=== PATIENT | male | born 1935 | race Caucasian/White ===

== ENCOUNTER 2017-06-10 10:24 | Observation (INO) | payer MEDICARE, OTHER ==
[~2017-06-10] VITALS: Ht 167.6 cm; Wt 80.0 kg
[~2017-06-10 10:24] MED LIST: ALLO300T2 PO; CLOP75TA27 PO; DABI150C PO; FLUT16SP17 NASAL; FURO40TA4 PO; LORA10TA3 PO; METO-335 PO; TRAM-40 PO; TRAV2.5D BOTH EYES
[2017-06-10 11:07] LABS: BASOPHILS % 0.4 % (0.0-2.0); EOSINOPHILS # 0.1 10^3/ul (0.0-0.5); EOSINOPHILS % 0.5 % (0.0-7.0); HEMATOCRIT 35.9 % (42.0-52.0); HEMOGLOBIN 12.3 g/dl (14.0-18.0); LYMPHOCYTES # 1.1 10^3/ul (0.8-2.9); LYMPHOCYTES % 9.8 % (15.0-51.0); MEAN CORPUSCULAR HEMOGLOBIN 33.4 pg (29.0-33.0); MEAN CORPUSCULAR HGB CONC 34.3 g/dl (32.0-37.0); MEAN CORPUSCULAR VOLUME 97.6 fl (82.0-101.0); MONOCYTES % 8.8 % (0.0-11.0); NEUTROPHIL # 8.8 10^3/ul (1.6-7.5); PLATELET COUNT 128 10^3/UL (140-415); POSITIVE DIFF @See below; RED BLOOD COUNT 3.68 10^6/ul (4.70-6.10); RED CELL DISTRIBUTION WIDTH 14.3 % (11.5-14.5)
[2017-06-10 11:43] LABS: CALCIUM 8.7 mg/dl (8.4-10.2); CREATININE 0.83 mg/dl (0.61-1.24); POTASSIUM 4.6 mmol/L (3.5-5.1)
[2017-06-10 11:53] VITALS: TEMP 98.5
[2017-06-10 11:53] LABS: TROPONIN-I 0.021 ng/ml (0.00-0.12)
--- NOTE | 2017-06-10 11:53 | RADRPT ---
PROCEDURE: CT Brain without contrast. CLINICAL INDICATION: Pain, headache, syncope TECHNIQUE: Routine CT scan of the brain was performed on a high resolution multi detector scanner without intravenous contrast. One or more of the following dose reduction techniques were used: Auto mated exposure control; Adjustment of the mA and/or kV according to patient size; Use of iterative r econstruction technique. CTDI = 43 mGy. DLP = 720 mGy-cm. COMPARISON: CT brain 08/12/2016 FINDINGS: Hemorrhage: No evidence of intracranial hemorrhage. Acute ischemic changes: No evidence of acute ischemic changes. Mass effect: None. Parenchymal volume: Mild central parenchymal volume loss is evident. Ventricular system: Concordant with parenchymal volume. Chronic changes: There are multiple areas of low attenuation change within the supratentorial white matter most compatible with moderate chronic microvascular ischemic changes. Atherosclerotic calcifications of the cavernous portions of both internal carotid arteries are prese nt. Extracranial soft tissues: Unremarkable. Calvarium: No fractures. Paranasal sinuses: Visualized paranasal sinuses are clear. Mastoid air cells: Visualized mastoid air cells are clear. IMPRESSION: No acute intracranial abnormalities. Moderate chronic-appearing microvascular ischemic changes of the supratentorial white matter, unchan ged. RPTAT: AADD .Stephan Cid MD, MD Date Time Electronically viewed and signed by .Stephan Cid MD, on 06/10/2017 11:53 .B/
[2017-06-10] MEDS ORDERED: ACETAMINOPHEN 325 MG TAB PO PRN (12:30)
[2017-06-10] MEDS ORDERED: ONDANSETRON 4 MG INJ IV PRN (12:30)
[2017-06-10] MEDS ORDERED: CARV12.579 PO (12:47)
[2017-06-10] MEDS ORDERED: LISI2.5T59 PO (12:48)
[2017-06-10] MEDS ORDERED: NACL 0.9% 3 ML SYG IV SCH (13:00)
--- NOTE | 2017-06-10 14:09 | ERA ---
ER Documentation Chief Complaint Date/Time DATE: 06/10/17 TIME: 14:07 Chief Complaint SYNCOPE WHILE BRUSHING HIS TEETH THIS AM HPI Patient is an 81-year-old male with coronary disease and hypertension who presents after he passed out. He hit his head as well. He was having headache and chest pain as well as shortness of breath. This happened at 6 AM. He was brought in by ambulance. He had a pacemaker placed recently on May 15. Upon review of old medical records this is the patient's fourth visit to the ER since 2015. ROS All systems reviewed and are negative except as per history of present illness. Medications Home Meds Reported Medications Lisinopril* (Lisinopril*) 2.5 Mg Tablet, 2.5 MG PO DAILY, #30 TAB 06/10/17 Carvedilol* (Carvedilol*) 12.5 Mg Tablet, 12.5 MG PO BID, #60 TAB 06/10/17 Furosemide* (Furosemide*) 40 Mg Tablet, 40 MG PO DAILY, TAB 08/15/16 Allopurinol* (Allopurinol*) 300 Mg Tablet, 300 MG PO DAILY, TAB 08/15/16 Metoprolol Succinate* (Toprol XL*) 25 Mg Tab.sr.24h, 25 MG PO QAM, #30 TAB 08/15/16 Discontinued Reported Medications Travoprost* (Travatan Z*) 2.5 Ml Drops, 1 DROP BOTH EYES HS, #1 BOTTLE 08/15/16 Loratadine* (Loratadine*) 10 Mg Tablet, 10 MG PO DAILY, #30 TAB 08/15/16 Clopidogrel Bisulfate (Clopidogrel) 75 Mg Tablet, 75 MG PO DAILY, #30 TAB 08/15/16 Tramadol Hcl* (Ultram*) 50 Mg Tablet, 50 MG PO BID Y for PAIN, TAB 08/15/16 Dabigatran Etexilate Mesylate* (Pradaxa*) 150 Mg Capsule, 150 MG PO BID, CAP 08/15/16 Fluticasone Propionate* (Fluticasone Propionate* Nasal) 50 Mcg/Tyler - 16 Gm Tyler.susp, 1 SPRAY NASAL BID, #1 BOTTLE TO EACH NOSTRIL 08/15/16 Allergies Allergies: Coded Allergies: No Known Allergy (Unverified , 06/10/17) PMhx/Soc History of Surgery: Yes (S/P Pacemaker placement - 2012, 05/2017) Anesthesia Reaction: No Hx Neurological Disorder: No Hx Respiratory Disorders: No Hx Cardiac Disorders: No (HTN) Hx Psychiatric Problems: No Hx Miscellaneous Medical Probl: Yes (gout, CAD, HTN) Hx Alcohol Use: Yes Hx Substance Use: No Hx Tobacco Use: No Smoking Status: Former smoker FmHx Family History: No diabetes Physical Exam Vitals Vital Signs Date Time Temp Pulse Resp B/P Pulse Ox O2 Delivery O2 Flow Rate FiO2 06/10/17 11:53 98.5 91 18 148/110 98 Room Air 06/10/17 10:28 98.3 87 18 136/76 96 Physical Exam Const: Mild distress secondary to pain Head: Atraumatic Eyes: Normal Conjunctiva ENT: Normal External Ears, Nose and Mouth. Neck: Full range of motion..~ No meningismus. Resp: Clear to auscultation bilaterally Cardio: Regular rate and rhythm, no murmurs Abd: Soft, non tender, non distended. Normal bowel sounds Skin: No petechiae or rashes Back: No midline or flank tenderness Ext: No cyanosis, or edema Neur: Awake and alert Psych: Normal Mood and Affect Result Diagram: 06/10/17 1050 06/10/17 1050 Results 24 hrs Laboratory Tests Test 06/10/17 10:50 White Blood Count 11.010^3/ul Red Blood Count 3.6810^6/ul Hemoglobin 12.3g/dl Hematocrit 35.9% Mean Corpuscular Volume 97.6fl Mean Corpuscular Hemoglobin 33.4pg Mean Corpuscular Hemoglobin Concent 34.3g/dl Red Cell Distribution Width 14.3% Platelet Count 52824^3/UL Mean Platelet Volume 11.0fl Neutrophils % 80.0% Lymphocytes % 9.8% Monocytes % 8.8% Eosinophils % 0.5% Basophils % 0.4% Nucleated Red Blood Cells % 0.0/100WBC Neutrophils # 8.810^3/ul Lymphocytes # 1.110^3/ul Monocytes # 1.010^3/ul Eosinophils # 0.110^3/ul Basophils # 0.010^3/ul Nucleated Red Blood Cells # 0.010^3/ul Sodium Level 140mmol/L Potassium Level 4.6mmol/L Chloride Level 107mmol/L Carbon Dioxide Level 27mmol/L Anion Gap 11 Blood Urea Nitrogen 16mg/dl Creatinine 0.83mg/dl Glucose Level 111mg/dl Calcium Level 8.7mg/dl Troponin I 0.021ng/ml Current Medications Medications (Trade) Dose Ordered Sig/Loraine Route PRN Reason Start Time Stop Time Status Last Admin Dose Admin Ondansetron HCl (Zofran Inj) 4 mg ER BRIDGE PRN IV NAUSEA AND/OR VOMITING 06/10/17 12:30 06/11/17 12:29 Acetaminophen (Tylenol Tab) 650 mg ER BRIDGE PRN PO MILD PAIN/FEVER 06/10/17 12:30 06/11/17 12:29 IV Flush (NS 3 ml) 3 ml PER PROTOCOL IV 06/10/17 13:00 Enoxaparin Sodium (Lovenox) 40 mg DAILY SC 06/11/17 09:00 Allopurinol (Zyloprim) 300 mg DAILY PO 06/11/17 09:00 UNV Furosemide (Lasix) 40 mg DAILY PO 06/11/17 09:00 UNV Lisinopril (Zestril) 2.5 mg DAILY PO 06/11/17 09:00 UNV Procedures/MDM EKG read by me: Rate/Rhythm: Atrial fibrillation at a regular rate Intervals: Normal Impression: Atrial fibrillation without ischemia PROCEDURE: CT Brain without contrast. CLINICAL INDICATION: Pain, headache, syncope TECHNIQUE: Routine CT scan of the brain was performed on a high resolution multi detector scanner without intravenous contrast. One or more of the following dose reduction techniques were used: Automated exposure control; Adjustment of the mA and/or kV according to patient size; Use of iterative reconstruction technique. CTDI = 43 mGy. DLP = 720 mGy-cm. COMPARISON: CT brain 08/12/2016 FINDINGS: Hemorrhage: No evidence of intracranial hemorrhage. Acute ischemic changes: No evidence of acute ischemic changes. Mass effect: None. Parenchymal volume: Mild central parenchymal volume loss is evident. Ventricular system: Concordant with parenchymal volume. Chronic changes: There are multiple areas of low attenuation change within the supratentorial white matter most compatible with moderate chronic microvascular ischemic changes. Atherosclerotic calcifications of the cavernous portions of both internal carotid arteries are present. Extracranial soft tissues: Unremarkable. Calvarium: No fractures. Paranasal sinuses: Visualized paranasal sinuses are clear. Mastoid air cells: Visualized mastoid air cells are clear. IMPRESSION: No acute intracranial abnormalities. Moderate chronic-appearing microvascular ischemic changes of the supratentorial white matter, unchanged. RPTAT: AADD .Stephan Cid MD, MD Date Time Electronically viewed and signed by .Stephan Cid MD, on 06/10/2017 11:53 Patient is an 81-year-old male with coronary disease and hypertension who presents with syncope. My concern is for possible ventricular arrhythmia. He also has chest pain and shortness of breath. He may have acute coronary syndrome. The patient will be given aspirin. He will be admitted to the care of the panel team to a telemetry bed for further workup. At this point I doubt pneumonia, pneumothorax, pulmonary embolism, or aortic dissection. Departure Diagnosis: Primary Impression: Chest pain Qualified Code: R07.9 - Chest pain, unspecified type Additional Impression: Syncope Qualified Code: R55 - Syncope, unspecified syncope type Condition: HERMELINDA Mccloud MD Jun 10, 2017 14:09
[2017-06-10] MEDS ORDERED: ASPIRIN 81 MG TAB PO ONE (14:30)
[2017-06-10 16:12] VITALS: Ht 167.6 cm; Wt 80.0 kg
[2017-06-10 16:24] VITALS: BP 158/78; RESP 20
[2017-06-10 16:31] VITALS: PULSE 104
--- NOTE | 2017-06-10 16:36 | HP ---
Date/Time of Note Date/Time of Note DATE: 06/10/17 TIME: 16:24 Assessment/Plan VTE Prophylaxis VTE Prophylaxis Intervention: SCD's Assessment/Plan Assessment/Plan 81 yo M with h/o symptomatic bradycardia? sp PM placement, htn, gout admitted following presyncopal episode in the setting of acute viral process as well as accidental excess bb use. Suspect etio of episode combination of iatrogenesis ( too many beta blockers) and orthostatic hypotension from low volume state from volume loss from diarrhea and vomiting. PLAN hold bb's cont allopurinol judicious IVFs obtain outside records tele monitoring check CXR and RVP HPI/ROS Admit Date/Time Admit Date/Time Jun 10, 2017 at 12:23 Hx of Present Illness 81 yo M with pmhx ?symptomatic bradycardia? with h/o PM placement 4 years ago, HTN, gout presents following a presyncopal episode this AM. Pt reports having cold/URI symptoms for the past week-->nasal congestion, chills, runny nose, with loose stools and vomiting since yesterday. Pt was brushing his teeth this AM when he suddenly felt "cold all over" his vision appeared to blacken and he fell to the ground. Denies any preceding chest pain or palpitations. Of note, pt is on bb for HTN. He was switched from metoprolol to carvedilol last month but was confused by the directions of his PCP so has been taking both for the past several weeks. Also of note, pt was admitted to an OSH in [place] 4 weeks ago for ?chest pain,? was told at that time that the battery in his PM was running low so it was replaced. No drainage or erythema of PM site. PMH/Family/Social Past Surgical History Past Surgical Hx: other Social History lives in the community Smoking Status: Never smoker Exam/Review of Systems Vital Signs Vitals Vital Signs Date Time Temp Pulse Resp B/P Pulse Ox O2 Delivery O2 Flow Rate FiO2 06/10/17 14:40 95 18 158/91 98 Room Air 06/10/17 11:53 98.5 Exam Exam nad wearing sunglasses +breathing through his mouth +breath sounds in all lung dunlap no mrg PM site c/d/i moves exts freely no rashes no edema labs with minimal WBC elevation. CT head with chronic microvascular changes Labs Result Diagram: 06/10/17 1050 06/10/17 1050 Medications Medications Current Medications Enoxaparin Sodium (Lovenox) 40 mg DAILY SC ; Start 06/11/17 at 09:00 Allopurinol (Zyloprim) 300 mg DAILY PO ; Start 06/11/17 at 09:00 Furosemide (Lasix) 40 mg DAILY PO ; Start 06/11/17 at 09:00 Lisinopril (Zestril) 2.5 mg DAILY PO ; Start 06/11/17 at 09:00 CELIA AYERS MD Jun 10, 2017 16:35
[2017-06-10 19:48] VITALS: BP 139/68; RESP 20
[2017-06-10 20:30] VITALS: PULSE 95
[2017-06-10] MEDS ORDERED: INFLUENZA VIRUS VACCINE 0.5 ML SYG IM* ONE (22:00)
[2017-06-10 23:59] VITALS: BP 130/72; RESP 20
[2017-06-11] VITALS (17 sets, daily range): BP systolic 125–173; BP diastolic 59–79; PULSE 72–98; RESP 18–20
[2017-06-11] MEDS: FUROSEMIDE 40 MG TAB PO SCH (08:48)
[2017-06-11] MEDS: ALLOPURINOL 300 MG TAB PO SCH (08:48)
[2017-06-11] MEDS: LISINOPRIL 5 MG TAB PO SCH (08:48)
[2017-06-11] MEDS: ENOXAPARIN 40 MG/0.4 ML SYG SC SCH (08:51)
[2017-06-11 09:23] LABS: BASOPHILS % 0.3 % (0.0-2.0); EOSINOPHILS # 0.2 10^3/ul (0.0-0.5); HEMATOCRIT 38.2 % (42.0-52.0); HEMOGLOBIN 12.7 g/dl (14.0-18.0); LYMPHOCYTES # 1.5 10^3/ul (0.8-2.9); LYMPHOCYTES % 14.9 % (15.0-51.0); MEAN CORPUSCULAR HEMOGLOBIN 32.8 pg (29.0-33.0); MEAN CORPUSCULAR HGB CONC 33.2 g/dl (32.0-37.0); MEAN CORPUSCULAR VOLUME 98.7 fl (82.0-101.0); MEAN PLATELET VOLUME 11.4 fl (7.4-10.4); MONOCYTES % 10.1 % (0.0-11.0); NEUTROPHIL # 7.4 10^3/ul (1.6-7.5); NEUTROPHILS % 72.4 % (39.0-77.0); PLATELET COUNT 134 10^3/UL (140-415); POSITIVE DIFF @See below; RED BLOOD COUNT 3.87 10^6/ul (4.70-6.10); RED CELL DISTRIBUTION WIDTH 14.6 % (11.5-14.5); WHITE BLOOD COUNT 10.2 10^3/ul (4.8-10.8)
[2017-06-11 09:51] LABS: CREATININE 0.87 mg/dl (0.61-1.24); POTASSIUM 4.2 mmol/L (3.5-5.1)
--- NOTE | 2017-06-11 16:42 | RADRPT ---
PROCEDURE: XR Chest. CLINICAL INDICATION: Shortness of breath TECHNIQUE: PA and lateral views of the chest COMPARISON: 08/15/2016 Chest x-ray FINDINGS: Marked cardiomegaly with left ventricular prominence stable compared to prior study. Left dual chamb er pacemaker / AICD. Atherosclerotic calcification of the aorta. Lingular and bibasilar linear scar ring and/or subsegmental atelectasis. No pneumothorax. The osseous structures and soft tissues are u nremarkable. IMPRESSION: 1. No evidence for active cardiopulmonary disease. 2. Stable cardiomegaly with left pacemaker / AICD. 3. Bibasilar subsegmental atelectasis or scarring. RPTAT:AAJJ Physician Jonnie Date Time Electronically viewed and signed by Physician Jonnie on 06/11/2017 16:42 STACY/
--- NOTE | 2017-06-11 17:48 | PN ---
Date/Time of Note Date/Time of Note DATE: 06/11/17 TIME: 17:46 Assessment/Plan VTE Prophylaxis VTE Prophylaxis Intervention: SCD's Lines/Catheters IV Catheter Type (from Nrsg): Saline Lock Assessment/Plan Assessment/Plan 81 yo M with h/o symptomatic bradycardia? sp PM placement, htn, gout admitted following presyncopal episode in the setting of acute viral process as well as accidental excess bb use. Suspect etio of episode combination of iatrogenesis ( too many beta blockers) and orthostatic hypotension from low volume state from volume loss from diarrhea and vomiting. PLAN hold bb's cont allopurinol obtain outside records tele monitoring check RVP consider dc in AM Subjective 24 Hr Interval Summary Free Text/Dictation Chest pain significantly improved outside results not yet available Exam/Review of Systems Vital Signs Vitals Vital Signs Date Time Temp Pulse Resp B/P Pulse Ox O2 Delivery O2 Flow Rate FiO2 06/11/17 16:32 98.0 88 19 151/69 95 06/10/17 14:40 Room Air Intake and Output 06/10/17 06/10/17 06/11/17 15:00 23:00 07:00 Intake Total 200 ml 480 ml Output Total 3 ml Balance 200 ml 477 ml Exam nad no mrg lungs clear abd soft no rashes Results Result Diagram: 06/11/17 0834 06/11/17 0834 Results 24 hrs Laboratory Tests Test 06/10/17 18:42 06/11/17 01:03 06/11/17 08:34 Troponin I 0.021 0.040 White Blood Count 10.2 Red Blood Count 3.87 L Hemoglobin 12.7 L Hematocrit 38.2 L Mean Corpuscular Volume 98.7 Mean Corpuscular Hemoglobin 32.8 Mean Corpuscular Hemoglobin Concent 33.2 Red Cell Distribution Width 14.6 H Platelet Count 134 L Mean Platelet Volume 11.4 H Neutrophils % 72.4 Lymphocytes % 14.9 L Monocytes % 10.1 Eosinophils % 2.0 Basophils % 0.3 Nucleated Red Blood Cells % 0.0 Neutrophils # 7.4 Lymphocytes # 1.5 Monocytes # 1.0 H Eosinophils # 0.2 Basophils # 0.0 Nucleated Red Blood Cells # 0.0 Sodium Level 139 Potassium Level 4.2 Chloride Level 103 Carbon Dioxide Level 29 Anion Gap 11 Blood Urea Nitrogen 17 Creatinine 0.87 Glucose Level 123 Calcium Level 9.0 Medications Medications Current Medications Enoxaparin Sodium (Lovenox) 40 mg DAILY SC Last administered on 06/11/17 08:51 ; Admin Dose 40 MG; Start 06/11/17 at 09:00 Allopurinol (Zyloprim) 300 mg DAILY PO Last administered on 06/11/17 08:48; Admin Dose 300 MG; Start 06/11/17 at 09:00 Furosemide (Lasix) 40 mg DAILY PO Last administered on 06/11/17 08:48; Admin Dose 40 MG; Start 06/11/17 at 09:00 Lisinopril (Zestril) 2.5 mg DAILY PO Last administered on 06/11/17 08:48; Admin Dose 2.5 MG; Start 06/11/17 at 09:00 CELIA AYERS MD Jun 11, 2017 17:48
[2017-06-12] VITALS (7 sets, daily range): BP systolic 116–130; BP diastolic 56–65; PULSE 75–83; RESP 18–19
[2017-06-12] MEDS ORDERED: ZOLPIDEM 5 MG TAB PO PRN
[2017-06-12] MEDS: ENOXAPARIN 40 MG/0.4 ML SYG SC SCH (09:17)
[2017-06-12] MEDS: FUROSEMIDE 40 MG TAB PO SCH (09:18)
[2017-06-12] MEDS: LISINOPRIL 5 MG TAB PO SCH (09:19)
[2017-06-12] MEDS: ALLOPURINOL 300 MG TAB PO SCH (09:19)
[2017-06-12] MEDS ORDERED: DIGO250T16 PO (12:19)
[2017-06-12] MEDS ORDERED: LEVO112T57 PO (12:19)
[2017-06-12] MEDS ORDERED: DABI150C PO (12:20)
--- NOTE | 2017-06-12 12:51 | PDOCDIS ---
Discharge Instructions CONDITION Patient Condition: Stable HOME CARE INSTRUCTIONS: Special Diet: Low Fat Low Cholesterol FOLLOW UP/APPOINTMENTS Follow-up Plan Follow up with your regular doctor, Dr Siegel this week Mita un seguimiento con carty luis manuel, Dr. Siegel esta semana [place] [address] [facility] [place] [address] phone/Telfono Follow up with your heart doctor/heating element builder within 2 weeks Mita un seguimiento con carty luis manuel musa / cardilogo dentro de 2 semanas [facility] [address] [facility] [address] [place] [address] Phone/Telfono CELIA AYERS MD Jun 12, 2017 12:51
--- NOTE | 2017-06-12 12:57 | DS ---
Date/Time of Note Date/Time of Note DATE: 06/12/17 TIME: 12:52 Discharge Summary Admission/Discharge Info Admit Date/Time Jun 10, 2017 at 12:23 Discharge Date/Time Discharge Diagnosis presyncope most likely from combined URI and excessive antihypertensive medication Patient Condition: Stable Procedures 10.3 CXR IMPRESSION: 1. No evidence for active cardiopulmonary disease. 2. Stable cardiomegaly with left pacemaker / AICD. 3. Bibasilar subsegmental atelectasis or scarring. Hematology - 72 Hrs Test 06/10/17 10:50 06/11/17 08:34 White Blood Count 11.010^3/ul (4.8-10.8) #H 10.210^3/ul (4.8-10.8) Red Blood Count 3.6810^6/ul (4.70-6.10) L 3.8710^6/ul (4.70-6.10) L Hemoglobin 12.3g/dl (14.0-18.0) L 12.7g/dl (14.0-18.0) L Hematocrit 35.9% (42.0-52.0) L 38.2% (42.0-52.0) L Mean Corpuscular Volume 97.6fl (82.0-101.0) 98.7fl (82.0-101.0) Mean Corpuscular Hemoglobin 33.4pg (29.0-33.0) H 32.8pg (29.0-33.0) Mean Corpuscular Hemoglobin Concent 34.3g/dl (32.0-37.0) 33.2g/dl (32.0-37.0) Red Cell Distribution Width 14.3% (11.5-14.5) 14.6% (11.5-14.5) H Platelet Count 10633^3/UL (140-415) L 47027^3/UL (140-415) L Mean Platelet Volume 11.0fl (7.4-10.4) #H 11.4fl (7.4-10.4) H Neutrophils % 80.0% (39.0-77.0) H 72.4% (39.0-77.0) Lymphocytes % 9.8% (15.0-51.0) L 14.9% (15.0-51.0) L Monocytes % 8.8% (0.0-11.0) 10.1% (0.0-11.0) Eosinophils % 0.5% (0.0-7.0) 2.0% (0.0-7.0) Basophils % 0.4% (0.0-2.0) 0.3% (0.0-2.0) Nucleated Red Blood Cells % 0.0/100WBC (0.0-0.0) 0.0/100WBC (0.0-0.0) Neutrophils # 8.810^3/ul (1.6-7.5) H 7.410^3/ul (1.6-7.5) Lymphocytes # 1.110^3/ul (0.8-2.9) 1.510^3/ul (0.8-2.9) Monocytes # 1.010^3/ul (0.3-0.9) H 1.010^3/ul (0.3-0.9) H Eosinophils # 0.110^3/ul (0.0-0.5) 0.210^3/ul (0.0-0.5) Basophils # 0.010^3/ul (0.0-0.1) 0.010^3/ul (0.0-0.1) Nucleated Red Blood Cells # 0.010^3/ul (0.0-0.0) 0.010^3/ul (0.0-0.0) Chemistry Test 06/10/17 10:50 06/10/17 18:42 06/11/17 01:03 06/11/17 08:34 Sodium Level 140mmol/L (135-144) 139mmol/L (135-144) Potassium Level 4.6mmol/L (3.5-5.1) 4.2mmol/L (3.5-5.1) Chloride Level 107mmol/L (97-110) 103mmol/L (97-110) Carbon Dioxide Level 27mmol/L (21-31) 29mmol/L (21-31) Anion Gap 11 (8-16) 11 (8-16) Blood Urea Nitrogen 16mg/dl (7-20) 17mg/dl (7-20) Creatinine 0.83mg/dl (0.61-1.24) 0.87mg/dl (0.61-1.24) Glucose Level 111mg/dl (70-220) 123mg/dl (70-220) Calcium Level 8.7mg/dl (8.4-10.2) 9.0mg/dl (8.4-10.2) Troponin I 0.021ng/ml (0.00-0.12) 0.021ng/ml (0.00-0.12) 0.040ng/ml (0.00-0.12) Laboratory Tests Test 06/11/17 08:34 Blood Urea Nitrogen 17mg/dl Carbon Dioxide Level 29mmol/L Chloride Level 103mmol/L Creatinine 0.87mg/dl Glucose Level 123mg/dl Hematocrit 38.2% Hemoglobin 12.7g/dl Platelet Count 62179^3/UL Potassium Level 4.2mmol/L Sodium Level 139mmol/L White Blood Count 10.210^3/ul Hx of Present Illness 81 yo M with pmhx ?symptomatic bradycardia? with h/o PM placement 4 years ago, HTN, gout presents following a presyncopal episode this AM. Pt reports having cold/URI symptoms for the past week-->nasal congestion, chills, runny nose, with loose stools and vomiting since yesterday. Pt was brushing his teeth this AM when he suddenly felt "cold all over" his vision appeared to blacken and he fell to the ground. Denies any preceding chest pain or palpitations. Of note, pt is on bb for HTN. He was switched from metoprolol to carvedilol last month but was confused by the directions of his PCP so has been taking both for the past several weeks. Also of note, pt was admitted to an OSH in [place] 4 weeks ago for ?chest pain,? was told at that time that the battery in his PM was running low so it was replaced. No drainage or erythema of PM site. Hospital Course Pt admitted for presyncope. No chest discomfort during the entirety of patient' s hospital stay. Pt's symptoms resolved shortly after admission. Metoprolol held. Pt's real estate clerk and PCP's office were contacted and home meds list updated. Per cardiology office, pt has a long hx ICM. Last TTE with EF 30% in late April, NM stress test 3.17 unremarkable. Pt's device is actually combined ICD/PM. Pt monitored on tele, found to be in SR HR<100. Pt discharged on just 1 beta bradley (coreg rx'ed from his cardiologists office ) and close outpatient f/u advised. Copy of this DC summary faxed to office of PCP and real estate clerk. Home Meds Reported Medications Dabigatran Etexilate Mesylate* (Pradaxa*) 150 Mg Capsule, 150 MG PO BID, CAP 06/12/17 Levothyroxine Sodium* (Levothyroxine Sodium*) 112 Mcg Tablet, 112 MCG PO BEFORE BREAKFAST, #30 TAB 06/12/17 Digoxin* (Digox*) 250 Mcg Tablet, 0.25 MG PO DAILY, TAB 06/12/17 Lisinopril* (Lisinopril*) 2.5 Mg Tablet, 2.5 MG PO DAILY, #30 TAB 06/10/17 Carvedilol* (Carvedilol*) 12.5 Mg Tablet, 12.5 MG PO BID, #60 TAB 06/10/17 Furosemide* (Furosemide*) 40 Mg Tablet, 40 MG PO DAILY, TAB 08/15/16 Allopurinol* (Allopurinol*) 300 Mg Tablet, 300 MG PO DAILY, TAB 08/15/16 Discontinued Reported Medications Metoprolol Succinate* (Toprol XL*) 25 Mg Tab.sr.24h, 25 MG PO QAM, #30 TAB 08/15/16 Travoprost* (Travatan Z*) 2.5 Ml Drops, 1 DROP BOTH EYES HS, #1 BOTTLE 08/15/16 Loratadine* (Loratadine*) 10 Mg Tablet, 10 MG PO DAILY, #30 TAB 08/15/16 Clopidogrel Bisulfate (Clopidogrel) 75 Mg Tablet, 75 MG PO DAILY, #30 TAB 08/15/16 Tramadol Hcl* (Ultram*) 50 Mg Tablet, 50 MG PO BID Y for PAIN, TAB 08/15/16 Dabigatran Etexilate Mesylate* (Pradaxa*) 150 Mg Capsule, 150 MG PO BID, CAP 08/15/16 Fluticasone Propionate* (Fluticasone Propionate* Nasal) 50 Mcg/[place]ath - 16 Gm Bath.susp, 1 SPRAY NASAL BID, #1 BOTTLE TO EACH NOSTRIL 08/15/16 Follow-up Plan Follow up with your regular doctor, Dr Siegel this week Mita un seguimiento con carty mdico, Dr. Siegel esta semana [facility] [address] [facility] [place] [address] phone/Telfono Follow up with your heart doctor/real estate clerk within 2 weeks Mita un seguimiento con carty mdfernanda de corazn / cardilogo dentro de 2 semanas [facility] [address] [facility] [address] [place] [address] Phone/Telfono Primary Care Provider Stephan Siegel Time spent on discharge: > 30 minutes CELIA AYERS MD Jun 12, 2017 12:57
== END 2017-06-12 16:17 | disposition home or self-care (01) ==
LOC: E/R 10:24 → MS4 12:23
PROVIDERS: ADMIT Internal Medicine; ATTEND Internal Medicine
DX: R55 Syncope and collapse (principal); R00.1 Bradycardia, unspecified; I10 Essential (primary) hypertension; I51.7 Cardiomegaly; J98.11 Atelectasis; Z95.0 Presence of cardiac pacemaker; Z23 Encounter for immunization
CPT/HCPCS: 36415; 70450; 71020; 80048; 84484; 85025; 87275; 87276; 87279; 87280; 90686; 93005; 99285; G0008; G0378; J1650; 90471

== ENCOUNTER 2017-07-11 06:36 | Inpatient (IN) | payer MEDICARE, OTHER ==
[~2017-07-11] VITALS: Ht 167.6 cm; Wt 83.4 kg
[2017-07-11] VITALS (7 sets, daily range): BP systolic 101–133; BP diastolic 55–63; PULSE 75–76; RESP 17–20; TEMP 97.8; Ht 167.6 cm; Wt 83.4 kg
[~2017-07-11 06:36] MED LIST changes: +CARV12.579 PO; -CLOP75TA27 PO; +DIGO250T16 PO; -FLUT16SP17 NASAL; +LEVO112T57 PO; +LISI2.5T59 PO; -LORA10TA3 PO; -METO-335 PO; -TRAM-40 PO; -TRAV2.5D BOTH EYES
[2017-07-11] MEDS ORDERED: ASPIRIN 325 MG TAB PO STA (06:39)
[2017-07-11] MEDS ORDERED: NITROGLYCERIN (SL) 0.4 MG TAB SL PRN ×2 (07:00→09:30)
--- NOTE | 2017-07-11 07:22 | RADRPT ---
PROCEDURE: XR Chest. CLINICAL INDICATION: Chest pain TECHNIQUE: AP Portable chest. COMPARISON: No pertinent prior examinations were submitted for comparison. FINDINGS: AICD device overlies the left upper chest. The cardiomediastinal silhouette is markedly enlarged. The aortic arch is calcified. Right basilar a telectasis is seen. Retrocardiac density is visualized. No pleural effusion or pneumothorax is seen. The osseous structures are intact. IMPRESSION: Retrocardiac infiltrate or atelectasis. Severe cardiomegaly. Atherosclerotic aorta. Physician Rodri Date Time Electronically viewed and signed by Physician Rodri on 07/11/2017 07:21 /
[2017-07-11] MEDS ORDERED: FER325 PO (07:31)
[2017-07-11] MEDS ORDERED: LEVO25TA53 PO (07:31)
[2017-07-11] MEDS ORDERED: FURO40TA4 PO (07:31)
[2017-07-11] MEDS ORDERED: POTA20TA15 PO (07:32)
[2017-07-11] MEDS ORDERED: LISI2.5T59 PO (07:32)
--- NOTE | 2017-07-11 07:54 | ERD ---
ER Documentation Chief Complaint Chief Complaint chest pain with nausea and vomiting and diarrhea since last night. HPI This is an 80-year-old male with a past medical history of coronary artery disease with a pacemaker that was initially placed in 2012 and replaced May 15, 2017 roughly 2 months prior to arrival. Patient presents to the emergency department complaining of 24 hours of intermittent chest pain. He states is a pressure-like sensation nonradiating, 8 out of 10 in intensity with no alleviating or exacerbating factors. The patient stated he had associated symptoms of nausea and one episode of nonbloody nonbilious emesis at the onset of his chest pain. He denies any shortness of breath at rest or exertion. He also indicates he had 3 episodes of loose watery stools in the past 24 hours but denies any abdominal pain or cramping. He denies a productive or nonproductive cough. He has had no fevers or shaking or chills. He denies any recent travel or prolonged immobilization. ROS All systems reviewed and are negative except as per history of present illness. Medications Home Meds Reported Medications Potassium Chloride* (K-Dur*) 20 Meq Tab.prt.sr, 20 MEQ PO DAILY, TAB.SA 07/11/17 Lisinopril* (Lisinopril*) 2.5 Mg Tablet, 2.5 MG PO DAILY, #30 TAB 07/11/17 Furosemide* (Furosemide*) 40 Mg Tablet, 40 MG PO DAILY, TAB 07/11/17 Levothyroxine Sodium* (Levothyroxine Sodium*) 25 Mcg Tablet, 25 MCG PO BEFORE BREAKFAST, #30 TAB 07/11/17 Ferrous Sulfate* (Ferrous Sulfate*) 325 Mg Tabec, 325 MG PO BID, TAB 07/11/17 Allergies Allergies: Coded Allergies: No Known Allergy (Unverified , 07/11/17) PMhx/Soc History of Surgery: Yes (pacemaker) Hx Cardiac Disorders: Yes (cardiac problems; htn) Hx Psychiatric Problems: No Hx Miscellaneous Medical Probl: Yes (thyroid problems) Hx Alcohol Use: No Hx Substance Use: No Hx Tobacco Use: No Smoking Status: Never smoker Physical Exam Vitals Vital Signs Date Time Temp Pulse Resp B/P Pulse Ox O2 Delivery O2 Flow Rate FiO2 07/11/17 07:48 63 18 107/57 100 Nasal Cannula 3.0 07/11/17 06:48 Nasal Cannula 3 07/11/17 06:47 98.5 95 21 129/65 98 Physical Exam Constitutional:Well-developed. Well-nourished. HEENT:Normocephalic. Atraumatic.Pupils were equal round reactive to light. Moist mucous membranes.No tonsillar exudates. Neck: No nuchal rigidity. No lymphadenopathy. No posterior cervical spine tenderness or step-offs. Respiratory: Not using accessory muscles of respiration.Lungs were clear to auscultation bilaterally. No rhonchi. No rales. No wheezing. Cardiovascular: Irregular irregular rhythm.No murmurs. No rubs were appreciated.S1, S2 normal. Distal pulses are palpable 2+ bilaterally. Pacemaker present in left chest wall and surgical incision site is clean dry and intact GI: Abdomen was soft. Nontender. Non Distended. No pulsatile abdominal masses or bruits. No rebound. No guarding. Bowel sounds were present and normal. Muscle skeletal: Full range of motion of both the upper and lower extremities bilaterally.Normal muscle tone.No assymetrical calf tenderness or swelling. Skin: No petechia, no purpura. No lesions on the palms or the soles of the feet. No maculopapular rash. NEURO: Patient was alert, awake, orientated x3.No facial droop. Gait observed and normal with no ataxia.Speech had regular rate and rhythm. No focal neurological deficits. Result Diagram: 07/11/17 0704 07/11/17 0704 Results 24 hrs Laboratory Tests Test 07/11/17 07:04 White Blood Count 5.410^3/ul Red Blood Count 3.5610^6/ul Hemoglobin 11.9g/dl Hematocrit 35.6% Mean Corpuscular Volume 100.0fl Mean Corpuscular Hemoglobin 33.4pg Mean Corpuscular Hemoglobin Concent 33.4g/dl Red Cell Distribution Width 14.6% Platelet Count 17782^3/UL Mean Platelet Volume 10.6fl Neutrophils % 61.3% Lymphocytes % 17.2% Monocytes % 10.5% Eosinophils % 10.2% Basophils % 0.6% Nucleated Red Blood Cells % 0.0/100WBC Neutrophils # 3.310^3/ul Lymphocytes # 0.910^3/ul Monocytes # 0.610^3/ul Eosinophils # 0.610^3/ul Basophils # 0.010^3/ul Nucleated Red Blood Cells # 0.010^3/ul Prothrombin Time 16.7Sec Prothrombin Time Ratio 1.3 INR International Normalized Ratio 1.34 Activated Partial Thromboplast Time 61.3Sec Sodium Level 144mmol/L Potassium Level 4.9mmol/L Chloride Level 106mmol/L Carbon Dioxide Level 31mmol/L Anion Gap 12 Blood Urea Nitrogen 15mg/dl Creatinine 1.19mg/dl Glucose Level 86mg/dl Calcium Level 8.8mg/dl Phosphorus Level 4.2mg/dl Magnesium Level 1.8mg/dl Total Bilirubin 0.5mg/dl Direct Bilirubin 0.00mg/dl Indirect Bilirubin 0.5mg/dl Aspartate Amino Transf (AST/SGOT) 23IU/L Alanine Aminotransferase (ALT/SGPT) 28IU/L Alkaline Phosphatase 64IU/L Creatine Kinase 88IU/L Creatine Kinase Index 2.6 Creatinine Kinase MB (Mass) 2.33ng/ml Troponin I 0.032ng/ml B-Type Natriuretic Peptide 7020PG/ML Total Protein 6.9g/dl Albumin 3.6g/dl Globulin 3.30g/dl Albumin/Globulin Ratio 1.09 Lipase 81U/L Current Medications Medications (Trade) Dose Ordered Sig/Loraine Route PRN Reason Start Time Stop Time Status Last Admin Dose Admin Aspirin (Aspirin) 325 mg ONCE STAT PO 07/11/17 06:39 07/11/17 06:41 DC 07/11/17 06:57 Nitroglycerin (Nitroglycerin (Sl Tab) 0.4 Mg) 1 tab Q5M UP TO 3 DOSES PRN SL CHEST PAIN 07/11/17 07:00 07/11/17 06:57 Procedures/[facility] The patient presented to the emergency department with chest pain. My clinical evaluation and workup was to distinguish minor causes of chest pain from acute life threatening conditions such as myocardial infarction, pulmonary embolism, aortic dissection, esophageal rupture, cardiac tamponade. The patient was placed on a quality assurance monitor body and continuous pulse oximetry. IV access established by nursing staff. The patient received aspirin and nitroglycerin with improvement of his chest discomfort. The patient also complained of diarrhea but has not recently been on any antibiotics or travel to suggest a parasitic infection. The patient had no abdominal pain and therefore did not feel is necessary to obtain a CT scan of the abdomen is my clinical suspicion was low for diverticulitis. The patient was given a liter bolus of normal saline to treat mild clinical dehydration. 12 Lead EKG tracing ordered and reviewed by myself showed: Irregular rhythm of 68 bpm and no arrhythmia. P wave is not appreciated as patient had atrial fibrillation QRS duration normal. No ST segment elevation No ST segment depression. No changes consistent with acute ischemia. Departure Diagnosis: Primary Impression: Chest pain Chest pain type: unspecified Qualified Code: R07.9 - Chest pain, unspecified type Condition: Serious ESTEVAN CASEY Jul 11, 2017 07:54
--- NOTE | 2017-07-11 09:28 | HP ---
Date/Time of Note Date/Time of Note DATE: 07/11/17 TIME: 09:11 Assessment/Plan VTE Prophylaxis VTE Prophylaxis Intervention: heparin Lines/Catheters IV Catheter Type (from Nrsg): Saline Lock Assessment/Plan Assessment/Plan 1. Chest pain r/o ACS - Patient has been experiencing chest pain since last night - Cardiology consulted for further recommendations - ECHO ordered - Serial troponins ordered - O2, Morphine, and Nitro PRN for pain 2. h/o Atrial fibrillation - Patient not on any rate control or anticoagulation at home. Denies any GI bleeding - CHADS VASC score 3 and will start on Lovenox full dose - Will see with CM which NOAC will be covered - Rate controlled 3. CAD s/p pacer - Continue on home medications - recent change of pacer in 05/2017 4. Hypothyroidism - Check TSH - continue levothyroxine 5. Anemia - continue home iron supplements 6. Acute on chronic HF - BNP 7020 - Lasix IV - monitor I/O and daily weights - ECHO ordered 7. ? Aortic stenosis 8. Nausea with vomiting - Zofran PRN - Patient wants to try eating 9. Code status - Full 10. Diet - Cardiac 11. GI ppx - Pepcid 12. DVT ppx - Lovenox 13. Disposition - Admit to Telemetry for cardiac workup HPI/ROS Admit Date/Time Admit Date/Time 07/11/17 Hx of Present Illness 80 yo M with PMH CAD s/p pacer in 2012 with recent replacement in 2017, hypothyroidism, atrial fibrillation, and anemia presents to ED c/o sternal chest pain that radiates to right side of chest and shoulder. States moderate in severity, pressure like, and improvement after nitro and aspirin given in ED. Patient states pain started last night and had associated shortness of breath, palpitations, dizziness, nausea, and vomiting x 5 episodes. Patient also complaining of diarrhea as well. 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 Denies any headaches, loss of consciousness, visual changes, or constipation. ROS All 12 systems reviewed and pertinent positives as per HPI. All others negative. Constitutional: fatigue, nausea, No chills, No febrile Eyes: no complaints ENT: no complaints Respiratory: shortness of breath, No cough, No sputum, No wheezing Cardiovascular: chest pain, edema, lightheadedness, palpitations Gastrointestinal: diarrhea, nausea, pain, vomiting, No constipation Genitourinary: no complaints Musculoskeletal: no complaints Skin: No erythema, No pruritis Neurologic: No confusion, No headache Endocrine: no complaints Lymphatic: no complaints Psychological: no complaints Immunologic: no complaints PMH/Family/Social Past Medical History Medical History: coronary artery disease, diabetes, hypothyroid Past Surgical History Past Surgical Hx: other (pacer placement 2013, replacement 2017) Family History Significant Family History: no pertinent family hx Social History Alcohol Use: none Smoking Status: Never smoker Drug Use: none Exam/Review of Systems Vital Signs Vitals Vital Signs Date Time Temp Pulse Resp B/P Pulse Ox O2 Delivery O2 Flow Rate FiO2 07/11/17 07:48 63 18 107/57 100 Nasal Cannula 3.0 07/11/17 06:47 98.5 Exam Constitutional: alert, distress, oriented, well developed Psych: nl mood/affect Head: atraumatic, normocephalic Eyes: EOMI, PERRL ENMT: mucosa pink and moist Neck: non-tender, supple Respiratory: clear to auscultation, No crackles/rales, No wheezing Cardiovascular: edema, irregular rhythm, nl pulses, systolic murmur Gastrointestinal: bowel sounds, soft, tender, No distended, No rebound or guarding Genitourinary - Male: No CVA tenderness Musculoskeletal: nl extremities to inspection Extremities: edema, No calf tenderness, No clubbing, No cyanosis Neurological: COLLATOR HAND II-XII intact, nl mental status Skin: nl turgor Lymph: nl lymph nodes Labs Result Diagram: 07/11/1704 07/11/17 0704 Medications Medications Home medications reviewed Current Medications Ferrous Sulfate (Ferrous Sulfate (Ec)) 325 mg BID PO ; Start 07/11/17 at 09:30; Status UNV Lisinopril (Zestril) 2.5 mg DAILY PO ; Start 07/11/17 at 09:30; Status UNV Procedures Procedures PROCEDURE: XR Chest. CLINICAL INDICATION: Chest pain TECHNIQUE: AP Portable chest. COMPARISON: No pertinent prior examinations were submitted for comparison. FINDINGS: AICD device overlies the left upper chest. The cardiomediastinal silhouette is markedly enlarged. The aortic arch is calcified. Right basilar atelectasis is seen. Retrocardiac density is visualized. No pleural effusion or pneumothorax is seen. The osseous structures are intact. IMPRESSION: Retrocardiac infiltrate or atelectasis. Severe cardiomegaly. Atherosclerotic aorta. SHANAE ALANIS MD Jul 11, 2017 09:28
[2017-07-11] MEDS ORDERED: ATORVASTATIN 40 MG TAB PO SCH (09:30)
[2017-07-11] MEDS ORDERED: ACETAMINOPHEN 325 MG TAB PO PRN (09:30)
[2017-07-11] MEDS ORDERED: morphine 2 MG INJ IV PRN (09:30)
[2017-07-11] MEDS ORDERED: HYDROCODONE/APAP (5/325) TAB PO PRN (09:30)
[2017-07-11] MEDS ORDERED: ONDANSETRON 4 MG INJ IV PRN (09:30)
[2017-07-11] MEDS ORDERED: FUROSEMIDE 100 MG INJ IV SCH (09:30)
[2017-07-11] MEDS ORDERED: NACL 0.9% 3 ML SYG IV SCH (09:30)
[2017-07-11] MEDS: ENOXAPARIN 100 MG/ML SYG SC SCH ×2 (10:12→20:49)
[2017-07-11] MEDS: FUROSEMIDE 40 MG INJ IV SCH ×2 (10:12→17:02)
[2017-07-11] MEDS: FERROUS SULFATE (EC) 325 MG TAB PO SCH ×2 (10:27→20:43)
[2017-07-11] MEDS: FAMOTIDINE 20 MG TAB PO SCH ×2 (10:27→20:43)
[2017-07-11] MEDS: LISINOPRIL 5 MG TAB PO SCH (10:46)
[2017-07-11] MEDS ORDERED: HEPARIN 5,000 UNIT/0.5 ML VIAL SC SCH (14:00)
[2017-07-11] MEDS ORDERED: FLUCONAZOLE 150 MG TAB PO ONE (15:30)
[2017-07-11] MEDS: NYSTATIN 15 GM OINT TOP SCH (16:44)
[2017-07-11] MEDS: METOPROLOL 25 MG TAB PO SCH (20:44)
[2017-07-11] MEDS: ZOLPIDEM 5 MG TAB PO PRN (21:01)
[2017-07-12] VITALS (11 sets, daily range): BP systolic 107–135; BP diastolic 53–73; PULSE 72–111; RESP 16–20
[2017-07-12] MEDS: NYSTATIN 15 GM OINT TOP SCH ×3 (00:22→21:01)
--- NOTE | 2017-07-12 02:14 | CONS ---
DATE OF ADMISSION: 07/11/2017 DATE OF CONSULTATION: 07/11/2017 REASON FOR CONSULTATION: Chest pain, assess for acute coronary syndrome. REQUESTING PHYSICIAN: Dr. Mcghee from the hospitalist service. HISTORY OF PRESENT ILLNESS: Mr. Ryan is a very pleasant 81-year-old male with a history of atri al fibrillation, not on systemic anticoagulation, permanent pacemaker status post generator change S 2016, prior syncopal episodes, hypothyroidism, anemia, possible valve disorder, congestive heart failure who initially presented with complaints of substernal chest pain. Patient describes c hest pain as a pressure-like sensation, worse with exertional activities. The patient additionally states he has a possible valve that needs to be replaced. Upon arrival in the emergency department, temperature of 98.5, blood pressure 129/65, pulse 95, respiratory rate 21, saturating 98%. The pat ient's labs revealed white count 5.4, hemoglobin 11.9, platelet count of 115. Sodium 144, potassium 4.9, creatinine 1.1, BUN 15, AST 23, ALT 28. BNP of 7020. TSH of 6.16, lipase 81, LDL 78, HDL 19, INR 1.34. UA negative. The patient underwent a chest x-ray revealing retrocardiac infiltrate or a telectasis, severe cardiomegaly. The patient's electrocardiogram revealed atrial fibrillation at a rate of 68 with left axis deviation and lateral T-wave inversions. Patient subsequently admitted to the floor and since admit to the floor, has had a second troponin return negative for 2 negative tr oponins. PAST MEDICAL HISTORY: As above in HPI. MEDICATIONS CURRENTLY IN HOSPITAL: 1. Aspirin 81 mg daily. 2. Synthroid 25 mcg daily. 3. Ferrous sulfate 325 mg b.i.d. 4. Zestril 2.5 mg daily. 5. Pepcid. 6. Lovenox 80 mg subQ q.12h. 7. Lasix 60 mg IV b.i.d. 8. Sublingual nitroglycerin. 9. Pepcid 20 mg q.12h. 10. Lipitor 40 mg at bedtime. 11. Morphine p.r.n. 12. Zofran p.r.n. 13. Ferrous sulfate 325 mg p.o. b.i.d. ALLERGIES: NO KNOWN DRUG ALLERGIES. SOCIAL HISTORY: No tobacco, ETOH or illicit drug use. FAMILY HISTORY: Negative for sudden cardiac or early CAD. REVIEW OF SYSTEMS: As above in HPI. CONSTITUTIONAL: No fevers, chills. PULMONARY: No current shortness of breath. CARDIOVASCULAR: Positive chest pain. GASTROINTESTINAL: No vomiting. GENITOURINARY: No hematuria. MUSCULOSKELETAL: Degenerative joint disease. PSYCHIATRIC: The patient denies depression. NEUROLOGIC: No documented history of CVA. Positive history of syncope, most recently was 3 months prior. PHYSICAL EXAMINATION: VITAL SIGNS: Temperature of 98.1, blood pressure 130/60, pulse 70, respirations 17, saturation 100% . GENERAL: The patient is alert, awake, in no acute distress. NECK: JVP approximately 9 cm of water. CHEST: Decreased breath sounds at bases bilaterally. HEART: Irregularly irregular, I/ systolic murmur, nondisplaced PMI. ABDOMEN: Positive bowel sounds, soft. EXTREMITIES: No pitting edema, 1+ pulses bilateral posterior tibial. LABORATORY DATA: As above in HPI. No further labs for my review at this time. IMAGING STUDIES: As above in HPI. No further imaging studies for my review at this time. ECG: As above in HPI. No further electrocardiograms for my review at this time. IMPRESSION: 1. Chest pain. Assess for acute coronary syndrome. 2. Abnormal electrocardiogram. Assess for acute coronary syndrome. 3. Increased beta-natriuretic peptide. Assess for congestive heart failure. 4. Status post permanent pacemaker. Assess function. 5. History of syncope, rule out cardiac etiology. Rule out cardiac arrhythmia. 6. Possible valvular disorder. 7. Hypothyroidism. 8. Anemia. RECOMMENDATIONS: 1. At this time, would maintain the patient on telemetry monitoring to follow rhythm and rate contr ol closely. 2. Check serial EKGs to assess for any significant ongoing changes, an EKG in the morning, EKG for any complaint of chest pain or change in rhythm. 3. Continue the patient's current Zestril that has been started for afterload reduction in the sett ing of possible heart failure and additionally will initiate patient on low dose beta bradley to ass ure good heart rate control in the setting of atrial fibrillation with borderline rapid ventricular response. 4. Continue the patient's Lovenox that has been started for prevention of thromboembolic complicati on of atrial fibrillation with an elevated CHADS-VASc score which I agree with. 5. Complete the patient's rule out for myocardial infarction to ensure that the patient's chest liseth n and EKG abnormalities are not due to any recent acute coronary syndrome. Assess for acute myocard ial infarction and thus check a 2D echocardiogram to further assess patient's ejection fraction, wal l motion and any major abnormalities. If the patient does rule out for myocardial infarction and [place] s no contraindication, the patient will likely benefit from a cardiac stress test, thus is scheduled to take place in the morning. Thank you for allowing me to take part in the care of this patient. I will continue to follow along very closely with you. Recommendations will be made as the patient progresses through the [facility] clinical course. Dictated By: HARPAL VITAL/MALIKA Conf#: [id number] DID#: [id number] CC: Dr. Mcghee;*End*
[2017-07-12] MEDS: LEVOTHYROXINE 25 MCG TAB PO SCH (06:36)
[2017-07-12] MEDS: FUROSEMIDE 40 MG INJ IV SCH ×2 (06:37→17:17)
[2017-07-12] MEDS: FERROUS SULFATE (EC) 325 MG TAB PO SCH ×2 (08:50→21:00)
[2017-07-12] MEDS: FAMOTIDINE 20 MG TAB PO SCH ×2 (08:50→21:01)
[2017-07-12] MEDS: METOPROLOL 25 MG TAB PO SCH ×2 (08:51→21:00)
[2017-07-12] MEDS: LISINOPRIL 5 MG TAB PO SCH (08:51)
[2017-07-12] MEDS: ASPIRIN 81 MG TAB PO SCH (08:54)
[2017-07-12] MEDS: ENOXAPARIN 100 MG/ML SYG SC SCH ×2 (08:58→21:08)
[2017-07-12] MEDS ORDERED: INFLUENZA VIRUS VACCINE 0.5 ML SYG IM* ONE (11:00)
[2017-07-12] MEDS ORDERED: REGADENOSON 0.4 MG/5 ML SYG ONE (11:00)
--- NOTE | 2017-07-12 11:12 | PN ---
Date/Time of Note Date/Time of Note DATE: 07/12/17 TIME: 11:12 Assessment/Plan VTE Prophylaxis VTE Prophylaxis Intervention: LMWH Lines/Catheters IV Catheter Type (from Nrs): Peripheral IV Urinary Cath still in place: No Assessment/Plan Assessment/Plan 1. Chest pain r/o ACS - stress test performed this am and awaiting results - trops negative x3 - ECHO showed low EF - Cardiology consultation appreciated. 2. h/o Atrial fibrillation - Patient not on any rate control or anticoagulation at home. Denies any GI bleeding - CHADS VASC score 3 and will start on Lovenox full dose and switch to xarelto or eliquis at time of discharge - Rate controlled 3. CAD s/p pacer - Continue on home medications - recent change of pacer in 05/2017 4. Hypothyroidism - TSH slightly elevated. Will need to follow up with PCP for recheck in 4-6 weeks - continue levothyroxine 5. Anemia - continue home iron supplements 6. Acute on chronic HF - BNP 7020 - change to PO lasix in am - monitor I/O and daily weights - ECHO pending 7. Disposition - Awaiting stress test results and cardiology recommendations - Will need to touch base with CM regarding NOAC coverage Subjective 24 Hr Interval Summary Free Text/Dictation patient underwent stress test this am. States chest pain and breathing has significantly improved and told his discomfort is from the fact he needs a new valve. Denies any acute overnight events Exam/Review of Systems Vital Signs Vitals Vital Signs Date Time Temp Pulse Resp B/P Pulse Ox O2 Delivery O2 Flow Rate FiO2 07/12/17 09:08 Nasal Cannula 3.0 07/12/17 08:09 111 07/12/17 07:41 98.0 18 127/73 97 Intake and Output 07/11/17 07/11/17 07/12/17 15:00 23:00 07:00 Intake Total 330 ml 250 ml Output Total 650 ml 550 ml 600 ml Balance -650 ml -220 ml -350 ml Exam Constitutional: alert, distress, oriented, well developed Head: atraumatic, normocephalic Eyes: EOMI, PERRL ENMT: mucosa pink and moist Respiratory: clear to auscultation, No crackles/rales, No wheezing Cardiovascular: edema, irregular rhythm, nl pulses, systolic murmur Gastrointestinal: bowel sounds, soft, tender, No distended, No rebound or guarding Musculoskeletal: nl extremities to inspection Extremities: edema, No calf tenderness, No clubbing, No cyanosis Neurological: LEAD CASE MANAGER II-XII intact, nl mental status Results Result Diagram: 07/12/17 0559 07/12/17 0559 Results 24 hrs Laboratory Tests Test 07/11/17 12:40 07/11/17 20:07 07/12/17 05:59 Creatine Kinase 82 67 Creatine Kinase Index 2.9 2.9 Creatinine Kinase MB (Mass) 2.35 1.95 Troponin I 0.014 0.017 White Blood Count 7.1 # Red Blood Count 4.23 L Hemoglobin 13.7 L Hematocrit 40.8 L Mean Corpuscular Volume 96.5 Mean Corpuscular Hemoglobin 32.4 Mean Corpuscular Hemoglobin Concent 33.6 Red Cell Distribution Width 14.5 Platelet Count 145 # Mean Platelet Volume 11.1 H Neutrophils % 55.4 Lymphocytes % 24.5 Monocytes % 10.4 Eosinophils % 8.7 H Basophils % 0.7 Nucleated Red Blood Cells % 0.0 Neutrophils # 4.0 Lymphocytes # 1.8 Monocytes # 0.7 Eosinophils # 0.6 H Basophils # 0.1 Nucleated Red Blood Cells # 0.0 Sodium Level 144 Potassium Level 3.9 Chloride Level 101 Carbon Dioxide Level 31 Anion Gap 16 Blood Urea Nitrogen 23 H Creatinine 1.09 Glucose Level 95 Calcium Level 8.7 Phosphorus Level 4.2 Magnesium Level 1.8 Albumin 4.0 Medications Medications Current Medications Ferrous Sulfate (Ferrous Sulfate (Ec)) 325 mg BID PO Last administered on 08:50; Admin Dose 325 MG; Start 07/11/17 at 10:30 Lisinopril (Zestril) 2.5 mg DAILY PO Last administered on 07/12/17 08:51; Admin Dose 2.5 MG; Start 07/11/17 at 10:30 Ondansetron HCl (Zofran Inj) 4 mg Q6H PRN IV NAUSEA AND/OR VOMITING; Start 07/11/17 at 09:30 Aspirin (Aspirin) 81 mg DAILY PO Last administered on 07/12/17 08:54; Admin Dose 81 MG; Start 07/12/17 at 09:00 Nitroglycerin (Nitroglycerin (Sl Tab) 0.4 Mg) 1 tab Q5M PRN SL CHEST PAIN; Start 07/11/17 at 09:30 Acetaminophen (Tylenol Tab) 650 mg Q6H PRN PO PAIN LEVEL 1-3 OR FEVER; Start 07/11/17 at 09:30 Acetaminophen/ Hydrocodone Bitart ([place] (5/325)) 1 tab Q6H PRN PO PAIN LEVEL 4 -6; Start 07/11/17 at 09:30 Morphine Sulfate (morphine) 2 mg Q4H PRN IV PAIN LEVEL 7-10; Start 07/11/17 at 09:30 Famotidine (Pepcid) 20 mg Q12 PO Last administered on 07/12/17 08:50; Admin Dose 20 MG; Start 07/11/17 at 09:30 Enoxaparin Sodium (Lovenox) 80 mg Q12 SC Last administered on 07/12/17 08:58; Admin Dose 80 MG; Start 07/11/17 at 09:30 Nystatin (Nystatin Oint) 1 applic BID TOP Last administered on 07/12/17 08:59 ; Admin Dose 1 APPLIC; Start 07/11/17 at 16:00 Metoprolol Tartrate (Lopressor) 25 mg BID PO Last administered on 07/12/17 08: 51; Admin Dose 25 MG; Start 07/11/17 at 21:00 SHANAE ALANIS MD Jul 12, 2017 11:12
--- NOTE | 2017-07-12 11:51 | CONS ---
Date/Time of Note Date/Time of Note DATE: 07/12/17 TIME: 11:46 Assessment/Plan Assessment/Plan Chief Complaint/Hosp Course IMPRESSION: 1. Chest pain. Assess for acute coronary syndrome.-negative trop x 3/low EF by echo 2. Abnormal electrocardiogram. Assess for acute coronary syndrome.-negative trop x 3 3. Increased beta-natriuretic peptide. Assess for congestive heart failure. 4. Status post permanent pacemaker-No signs of dysfunction at this time 5. History of syncope, rule out cardiac etiology. Rule out cardiac arrhythmia. 6. Possible valvular disorder. 7. Hypothyroidism. 8. Anemia. 9. AF-on BB rate controlled Recc: -Tele -serial ecg's -continue BB/ACEI -Continue lovenox with transition to eliquis/xarelto at d/c -Lexiscan stress test today Problems: Consultation Date/Type/Reason Admit Date/Time Jul 11, 2017 at 08:28 Initial Consult Date 07/11/2017 Type of Consultation: cardiology Reason for Consultation chest pain Referring Provider: SHANAE ALANIS MD Exam/Review of Systems Vital Signs Vitals Vital Signs Date Time Temp Pulse Resp B/P Pulse Ox O2 Delivery O2 Flow Rate FiO2 07/12/17 09:08 Nasal Cannula 3.0 07/12/17 08:09 111 07/12/17 07:41 98.0 18 127/73 97 Intake and Output 07/11/17 07/11/17 07/12/17 15:00 23:00 07:00 Intake Total 330 ml 250 ml Output Total 650 ml 550 ml 600 ml Balance -650 ml -220 ml -350 ml Exam Review of Systems: CONSTITUTIONAL: No fevers, chills. PULMONARY: No sob CARDIOVASCULAR: intermittent chest pain/palpitations GASTROINTESTINAL: No nausea/vomiting. GENITOURINARY: No hematuria/dysuria. MUSCULOSKELETAL: No myagias/arthalgias. PSYCHIATRIC: The patient denies depression. NEUROLOGIC: No weakness Psych: no complaints Head: normocephalic ENMT: mucosa pink and moist Neck: jvd (9 cm water), supple Respiratory: diminished breath sounds Cardiovascular: regular rate and rhythm Gastrointestinal: non-tender Musculoskeletal: muscle tone (normal) Extremities: edema (none) Neurological: other (No focal deficits) Results Result Diagram: 07/12/17 0559 07/12/17 0559 Results 24 hrs Laboratory Tests Test 07/11/17 12:40 07/11/17 20:07 07/12/17 05:59 Creatine Kinase 82 67 Creatine Kinase Index 2.9 2.9 Creatinine Kinase MB (Mass) 2.35 1.95 Troponin I 0.014 0.017 White Blood Count 7.1 # Red Blood Count 4.23 L Hemoglobin 13.7 L Hematocrit 40.8 L Mean Corpuscular Volume 96.5 Mean Corpuscular Hemoglobin 32.4 Mean Corpuscular Hemoglobin Concent 33.6 Red Cell Distribution Width 14.5 Platelet Count 145 # Mean Platelet Volume 11.1 H Neutrophils % 55.4 Lymphocytes % 24.5 Monocytes % 10.4 Eosinophils % 8.7 H Basophils % 0.7 Nucleated Red Blood Cells % 0.0 Neutrophils # 4.0 Lymphocytes # 1.8 Monocytes # 0.7 Eosinophils # 0.6 H Basophils # 0.1 Nucleated Red Blood Cells # 0.0 Sodium Level 144 Potassium Level 3.9 Chloride Level 101 Carbon Dioxide Level 31 Anion Gap 16 Blood Urea Nitrogen 23 H Creatinine 1.09 Glucose Level 95 Calcium Level 8.7 Phosphorus Level 4.2 Magnesium Level 1.8 Albumin 4.0 Medications Medications Current Medications Ferrous Sulfate (Ferrous Sulfate (Ec)) 325 mg BID PO Last administered on 08:50; Admin Dose 325 MG; Start 07/11/17 at 10:30 Lisinopril (Zestril) 2.5 mg DAILY PO Last administered on 07/12/17 08:51; Admin Dose 2.5 MG; Start 07/11/17 at 10:30 Ondansetron HCl (Zofran Inj) 4 mg Q6H PRN IV NAUSEA AND/OR VOMITING; Start 07/11/17 at 09:30 Aspirin (Aspirin) 81 mg DAILY PO Last administered on 07/12/17 08:54; Admin Dose 81 MG; Start 07/12/17 at 09:00 Nitroglycerin (Nitroglycerin (Sl Tab) 0.4 Mg) 1 tab Q5M PRN SL CHEST PAIN; Start 07/11/17 at 09:30 Acetaminophen (Tylenol Tab) 650 mg Q6H PRN PO PAIN LEVEL 1-3 OR FEVER; Start 07/11/17 at 09:30 Acetaminophen/ Hydrocodone Bitart ([place] (5/325)) 1 tab Q6H PRN PO PAIN LEVEL 4 -6; Start 07/11/17 at 09:30 Morphine Sulfate (morphine) 2 mg Q4H PRN IV PAIN LEVEL 7-10; Start 07/11/17 at 09:30 Famotidine (Pepcid) 20 mg Q12 PO Last administered on 07/12/17 08:50; Admin Dose 20 MG; Start 07/11/17 at 09:30 Enoxaparin Sodium (Lovenox) 80 mg Q12 SC Last administered on 07/12/17 08:58; Admin Dose 80 MG; Start 07/11/17 at 09:30 Nystatin (Nystatin Oint) 1 applic BID TOP Last administered on 07/12/17 08:59 ; Admin Dose 1 APPLIC; Start 07/11/17 at 16:00 Metoprolol Tartrate (Lopressor) 25 mg BID PO Last administered on 07/12/17 08: 51; Admin Dose 25 MG; Start 07/11/17 at 21:00 HARPAL JONES Jul 12, 2017 11:51
--- NOTE | 2017-07-12 12:00 | CARRPT ---
DATE OF PROCEDURE: 07/12/2017 REASON FOR STRESS TESTING: Chest pain, assess for ischemia. BASELINE VITAL SIGNS AND ELECTROCARDIOGRAM: Pulse 70, blood pressure 120/71. Electrocardiogram rev eals atrial fibrillation at a rate of 87, left axis deviation, anteroseptal Q's with nonspecific ST- T abnormalities diffusely. PROCEDURE: Patient with standard Lexiscan infusion protocol over 10 seconds followed by radiolabele d tracer. The patient's test was stopped due to completion of protocol. Maximal blood pressure dur ing the test 149/66. Maximal heart rate during the test 84. ELECTROCARDIOGRAM FINDINGS: The patient did not develop any new Lexiscan-induced ST or T-wave andino es from baseline abnormalities documented, but had occasional PVCs versus aberrantly conducted supra ventricular beats. SYMPTOMS: The patient had no complaints of chest pain or shortness of breath during stress testing, mild stomach pain which resolved in recovery. IMPRESSION: 1. No Lexiscan-induced ST or T-wave changes from baseline abnormalities or diagnostic cardiac ische lakeisha. 2. No complaints of chest pain or shortness of breath during stress testing. 3. Occasional premature ventricular contractions during stress testing. 4. Report of nuclear images to follow in separate dictation. Dictated By: HARPAL VITAL/MALIKA Conf#: [id number] DID#: [id number] CC: CELIA AYERS MD;*EndCC*
--- NOTE | 2017-07-12 14:29 | RADRPT ---
PROCEDURE: Lexiscan myocardial perfusion study CLINICAL INDICATION: 81 -year-old patient complaining of chest pain. TECHNIQUE: Lexiscan 0.4 mg intravenously separate acquisition gated myocardial perfusion SPECT usi ng Tc 99m Myoview 29.2 mCi intravenously at stress and Tc-99m Myoview, 10.0 mCi intravenously at res t was performed using the rest/stress sequence. Poststress Myoview SPECT images were obtained in th e supine position. COMPARISON: No prior studies. FINDINGS: Perfusion images reveal a small to moderate size mild in degree nonreversible perfusion abnormality in the inferoapical, inferior and inferolateral joseph. Lexiscan post stress gated SPECT images demonstrate moderate hypokinesis of the dilated left ventric le. IMPRESSION: 1. The type and distribution of the scintigraphic abnormalities are most consistent with a small to moderate-sized nonreversible perfusion defect in the inferoapical, inferior and inferolateral joseph . 2. Moderate hypokinesis of the dilated left ventricle. 3. The left ventricle ejection fraction at stress is 28%. A call report was made to Dr. Swanson and 02:27 p.m. on July 12, 2017. RPTAT: HH .Yanet Toth MD, Date Time Electronically viewed and signed by .Yanet Toth MD, on 07/12/2017 14:28 .L/
--- NOTE | 2017-07-12 18:03 | RADRPT ---
Echocardiogram Report Patient Name: MIGUEL CACERES Gender: Male Date: 1935 Study Date: 11-Jul-2017 Sample Clerk: Ashlee Jama EMILEE Location: [facility] Ref. Physician: SHANAE ALANIS Quality: Good Procedures: Transthoracic echocardiogram with complete 2D, M-Mode, and doppler examination. Indications: r/o Aortic Valve Stenosis. Chest Pain. Coronary Artery Disease. 2D/M Mode Doppler Measurement Value Normal Ranges Measurement Value Normal Ranges LVIDd 2D 6.4 3.5 - 5.6 cm AV Peak Cornel 1.7 m/sec LVIDs 2D 5.7 2.1 - 4.1 cm AV Peak PG 12.0 mmHg FS 2D 10.7 % AI Peak PG 85.0 mmHg LVPWd 2D 1.2 0.6 - 1.1 cm AI Peak Cornel 4.6 m/sec IVSd 2D 1.2 0.6 - 1.1 cm AI PHT 477.0 msec IVS/LVPW 2D 1.0 LVOT Peak Cornel 0.9 m/sec AoR Diam 2D 4.4 2.0 - 3.7 cm LVOT Peak PG 3.0 mmHg LA/Ao 2D 1 0 - 1 MV E Peak Cornel 1.3 m/sec EDV 2D 257.0 cm3 MV Decel Time 201 msec ESV 2D 183.0 cm3 TR Peak Cornel 3.3 m/sec LA Dimen 2D 3.9 2.3 - 4.0 cm TR Peak PG 43.0 mmHg RVSP 46.0 mmHg Findings Left Ventricle: Mild concentric left ventricular hypertrophy. Moderate enlargement of left ventricle cavity. Moderate left ventricular systolic dysfunction. Ejection fraction is visually estimated at 3035 %. Tissue Doppler/Mitral Doppler indices are consistent with restrictive physiology with markedly elevated left atrial pressure (Stage IIIIV diastolic dysfunction). Right Ventricle: Normal right ventricular size. Normal right ventricular systolic function. Pacemaker right heart. Left Atrium: The left atrium is normal in size. Right Atrium: The right atrium is normal in size. Mitral Valve: Mitral valve leaflets appear mildly thickened. Mild mitral annular calcification. Moderate to severe mitral valve regurgitation. The regurgitation jet is eccentrically directed which may underestimate the severity of mitral regurgitation. Aortic Valve: No hemodynamically significant aortic stenosis by doppler. Aortic cusps appear mildly calcified. Moderate aortic valve regurgitation. Tricuspid Valve: Normal appearance of the tricuspid valve. Estimated peak PA systolic pressure 46 mmHg. There is mild to moderate tricuspid regurgitation. Pulmonic Valve: Normal pulmonic valve appearance. There is mild pulmonic regurgitation. Pericardium: Normal pericardium with no significant pericardial effusion. Aorta: Sinus of valsalva is mildly dilated. There is mild aortic root dilation. IVC: Dilated IVC with respiratory collapse consistent with elevated right atrial pressure. Conclusions 1.Mild concentric left ventricular hypertrophy. Moderate enlargement of left ventricle cavity. Moderate left ventricular systolic dysfunction. Ejection fraction is visually estimated at 30-35 %. Tissue Doppler/Mitral Doppler indices are consistent with restrictive physiology with markedly elevated left atrial pressure (Stage III-IV diastolic dysfunction). 2.Normal right ventricular size. Normal right ventricular systolic function. Pacemaker right heart. 3.Mitral valve leaflets appear mildly thickened. Mild mitral annular calcification. Moderate to severe mitral valve regurgitation. The regurgitation jet is eccentrically directed which may underestimate the severity of mitral regurgitation. 4.No hemodynamically significant aortic stenosis by doppler. Aortic cusps appear mildly calcified. Moderate aortic valve regurgitation. 5.Normal appearance of the tricuspid valve. Estimated peak PA systolic pressure 46 mmHg. There is mild to moderate tricuspid regurgitation. 6.Normal pulmonic valve appearance. There is mild pulmonic regurgitation. Electronically Signed By: Jonatan Swanson 12-Jul-2017 18:02:47 -0700 Patient Name: MIGUEL CACERES Study Date: 11-Jul-2017 [id number]
--- NOTE | 2017-07-12 18:03 | RADRPT ---
Echocardiogram Report Patient Name: MIGUEL CACERES Gender: Male Date: 1935 Study Date: 11-Jul-2017 Ticketing Clerk: Ashlee Jama EMILEE Location: [facility] Ref. Physician: SHANAE ALANIS Quality: Good Procedures: Transthoracic echocardiogram with complete 2D, M-Mode, and doppler examination. Indications: r/o Aortic Valve Stenosis. Chest Pain. Coronary Artery Disease. 2D/M Mode Doppler Measurement Value Normal Ranges Measurement Value Normal Ranges LVIDd 2D 6.4 3.5 - 5.6 cm AV Peak Cornel 1.7 m/sec LVIDs 2D 5.7 2.1 - 4.1 cm AV Peak PG 12.0 mmHg FS 2D 10.7 % AI Peak PG 85.0 mmHg LVPWd 2D 1.2 0.6 - 1.1 cm AI Peak Cornel 4.6 m/sec IVSd 2D 1.2 0.6 - 1.1 cm AI PHT 477.0 msec IVS/LVPW 2D 1.0 LVOT Peak Cornel 0.9 m/sec AoR Diam 2D 4.4 2.0 - 3.7 cm LVOT Peak PG 3.0 mmHg LA/Ao 2D 1 0 - 1 MV E Peak Cornel 1.3 m/sec EDV 2D 257.0 cm3 MV Decel Time 201 msec ESV 2D 183.0 cm3 TR Peak Cornel 3.3 m/sec LA Dimen 2D 3.9 2.3 - 4.0 cm TR Peak PG 43.0 mmHg RVSP 46.0 mmHg Findings Left Ventricle: Mild concentric left ventricular hypertrophy. Moderate enlargement of left ventricle cavity. Moderate left ventricular systolic dysfunction. Ejection fraction is visually estimated at 3035 %. Tissue Doppler/Mitral Doppler indices are consistent with restrictive physiology with markedly elevated left atrial pressure (Stage IIIIV diastolic dysfunction). Right Ventricle: Normal right ventricular size. Normal right ventricular systolic function. Pacemaker right heart. Left Atrium: The left atrium is normal in size. Right Atrium: The right atrium is normal in size. Mitral Valve: Mitral valve leaflets appear mildly thickened. Mild mitral annular calcification. Moderate to severe mitral valve regurgitation. The regurgitation jet is eccentrically directed which may underestimate the severity of mitral regurgitation. Aortic Valve: No hemodynamically significant aortic stenosis by doppler. Aortic cusps appear mildly calcified. Moderate aortic valve regurgitation. Tricuspid Valve: Normal appearance of the tricuspid valve. Estimated peak PA systolic pressure 46 mmHg. There is mild to moderate tricuspid regurgitation. Pulmonic Valve: Normal pulmonic valve appearance. There is mild pulmonic regurgitation. Pericardium: Normal pericardium with no significant pericardial effusion. Aorta: Sinus of valsalva is mildly dilated. There is mild aortic root dilation. IVC: Dilated IVC with respiratory collapse consistent with elevated right atrial pressure. Conclusions 1.Mild concentric left ventricular hypertrophy. Moderate enlargement of left ventricle cavity. Moderate left ventricular systolic dysfunction. Ejection fraction is visually estimated at 30-35 %. Tissue Doppler/Mitral Doppler indices are consistent with restrictive physiology with markedly elevated left atrial pressure (Stage III-IV diastolic dysfunction). 2.Normal right ventricular size. Normal right ventricular systolic function. Pacemaker right heart. 3.Mitral valve leaflets appear mildly thickened. Mild mitral annular calcification. Moderate to severe mitral valve regurgitation. The regurgitation jet is eccentrically directed which may underestimate the severity of mitral regurgitation. 4.No hemodynamically significant aortic stenosis by doppler. Aortic cusps appear mildly calcified. Moderate aortic valve regurgitation. 5.Normal appearance of the tricuspid valve. Estimated peak PA systolic pressure 46 mmHg. There is mild to moderate tricuspid regurgitation. 6.Normal pulmonic valve appearance. There is mild pulmonic regurgitation. Electronically Signed By: Jonatan Swanson 12-Jul-2017 18:02:47 -0700 Patient Name: MIGUEL CACERES Study Date: 11-Jul-2017 [id number]
--- NOTE | 2017-07-12 18:03 | RADRPT ---
Echocardiogram Report Patient Name: MIGUEL CACERES Gender: Male Date: 1935 Study Date: 11-Jul-2017 Questioned Documents Examiner: Ashlee Jama EMILEE Location: [facility] Ref. Physician: SHANAE ALANIS Quality: Good Procedures: Transthoracic echocardiogram with complete 2D, M-Mode, and doppler examination. Indications: r/o Aortic Valve Stenosis. Chest Pain. Coronary Artery Disease. 2D/M Mode Doppler Measurement Value Normal Ranges Measurement Value Normal Ranges LVIDd 2D 6.4 3.5 - 5.6 cm AV Peak Cornel 1.7 m/sec LVIDs 2D 5.7 2.1 - 4.1 cm AV Peak PG 12.0 mmHg FS 2D 10.7 % AI Peak PG 85.0 mmHg LVPWd 2D 1.2 0.6 - 1.1 cm AI Peak Cornel 4.6 m/sec IVSd 2D 1.2 0.6 - 1.1 cm AI PHT 477.0 msec IVS/LVPW 2D 1.0 LVOT Peak Cornel 0.9 m/sec AoR Diam 2D 4.4 2.0 - 3.7 cm LVOT Peak PG 3.0 mmHg LA/Ao 2D 1 0 - 1 MV E Peak Cornel 1.3 m/sec EDV 2D 257.0 cm3 MV Decel Time 201 msec ESV 2D 183.0 cm3 TR Peak Cornel 3.3 m/sec LA Dimen 2D 3.9 2.3 - 4.0 cm TR Peak PG 43.0 mmHg RVSP 46.0 mmHg Findings Left Ventricle: Mild concentric left ventricular hypertrophy. Moderate enlargement of left ventricle cavity. Moderate left ventricular systolic dysfunction. Ejection fraction is visually estimated at 3035 %. Tissue Doppler/Mitral Doppler indices are consistent with restrictive physiology with markedly elevated left atrial pressure (Stage IIIIV diastolic dysfunction). Right Ventricle: Normal right ventricular size. Normal right ventricular systolic function. Pacemaker right heart. Left Atrium: The left atrium is normal in size. Right Atrium: The right atrium is normal in size. Mitral Valve: Mitral valve leaflets appear mildly thickened. Mild mitral annular calcification. Moderate to severe mitral valve regurgitation. The regurgitation jet is eccentrically directed which may underestimate the severity of mitral regurgitation. Aortic Valve: No hemodynamically significant aortic stenosis by doppler. Aortic cusps appear mildly calcified. Moderate aortic valve regurgitation. Tricuspid Valve: Normal appearance of the tricuspid valve. Estimated peak PA systolic pressure 46 mmHg. There is mild to moderate tricuspid regurgitation. Pulmonic Valve: Normal pulmonic valve appearance. There is mild pulmonic regurgitation. Pericardium: Normal pericardium with no significant pericardial effusion. Aorta: Sinus of valsalva is mildly dilated. There is mild aortic root dilation. IVC: Dilated IVC with respiratory collapse consistent with elevated right atrial pressure. Conclusions 1.Mild concentric left ventricular hypertrophy. Moderate enlargement of left ventricle cavity. Moderate left ventricular systolic dysfunction. Ejection fraction is visually estimated at 30-35 %. Tissue Doppler/Mitral Doppler indices are consistent with restrictive physiology with markedly elevated left atrial pressure (Stage III-IV diastolic dysfunction). 2.Normal right ventricular size. Normal right ventricular systolic function. Pacemaker right heart. 3.Mitral valve leaflets appear mildly thickened. Mild mitral annular calcification. Moderate to severe mitral valve regurgitation. The regurgitation jet is eccentrically directed which may underestimate the severity of mitral regurgitation. 4.No hemodynamically significant aortic stenosis by doppler. Aortic cusps appear mildly calcified. Moderate aortic valve regurgitation. 5.Normal appearance of the tricuspid valve. Estimated peak PA systolic pressure 46 mmHg. There is mild to moderate tricuspid regurgitation. 6.Normal pulmonic valve appearance. There is mild pulmonic regurgitation. Electronically Signed By: Jonatan Swanson 12-Jul-2017 18:02:47 -0700 Patient Name: MIGUEL CACERES Study Date: 11-Jul-2017 [id number]
[2017-07-12] MEDS: ZOLPIDEM 5 MG TAB PO PRN ×2 (21:01→21:02)
[2017-07-13] VITALS (9 sets, daily range): BP systolic 127–140; BP diastolic 58–70; PULSE 72–116; RESP 18–19
[2017-07-13] MEDS ORDERED: DIPHENHYDRAMINE 50 MG INJ IV ONE (03:00)
[2017-07-13] MEDS: LEVOTHYROXINE 25 MCG TAB PO SCH (05:39)
[2017-07-13] MEDS ORDERED: FUROSEMIDE 40 MG TAB PO SCH (06:00)
[2017-07-13] MEDS ORDERED: WALK1EAC23 MC (08:46)
[2017-07-13] MEDS ORDERED: APIXABAN 5 MG TABLET PO SCH (09:00)
[2017-07-13] MEDS: FERROUS SULFATE (EC) 325 MG TAB PO SCH (09:06)
[2017-07-13] MEDS: ASPIRIN 81 MG TAB PO SCH (09:06)
[2017-07-13] MEDS: FAMOTIDINE 20 MG TAB PO SCH (09:07)
[2017-07-13] MEDS: NYSTATIN 15 GM OINT TOP SCH (09:07)
[2017-07-13] MEDS: METOPROLOL 25 MG TAB PO SCH (09:08)
[2017-07-13] MEDS: LISINOPRIL 5 MG TAB PO SCH (09:09)
--- NOTE | 2017-07-13 11:25 | PDOCDIS ---
Discharge Instructions DIAGNOSIS Discharge Diagnosis 1. Acute chest pain 2. h/o Atrial fibrillation on Xarelto 3. CAD s/p pacer 4. Hypothyroidism 5. Anemia 6. Acute on chronic HF 7. Moderate to severe mitral valve regurgitation CONDITION Patient Condition: Good HOME CARE INSTRUCTIONS: Diet Instructions: Low Fat /CholesterolSpecial Diet: Low Fat Low Cholesterol FOLLOW UP/APPOINTMENTS Follow-up Plan 1. Take medications as prescribed 2. Follow up with your senior electronics engineer in 1 week 3. Follow up with your primary care physician in 1 week 4. Use front wheel walker when you are feeling unsteady on your feet. 1. [place] los medicamentos edvin se prescriben 2. Seguimiento con carty cardilogo en 1 semana 3. seguimiento con carty mdico de cabecera en 1 semana 4. Utilice el andador de la aly delantera cuando se sienta inestable en amarilis pies. SHANAE ALANIS MD Jul 13, 2017 11:25
--- NOTE | 2017-07-13 11:25 | PDOCDIS ---
Discharge Instructions DIAGNOSIS Discharge Diagnosis 1. Acute chest pain 2. h/o Atrial fibrillation on Xarelto 3. CAD s/p pacer 4. Hypothyroidism 5. Anemia 6. Acute on chronic HF 7. Moderate to severe mitral valve regurgitation CONDITION Patient Condition: Good HOME CARE INSTRUCTIONS: Diet Instructions: Low Fat /CholesterolSpecial Diet: Low Fat Low Cholesterol FOLLOW UP/APPOINTMENTS Follow-up Plan 1. Take medications as prescribed 2. Follow up with your endoscopy technician in 1 week 3. Follow up with your primary care physician in 1 week 4. Use front wheel walker when you are feeling unsteady on your feet. 1. [place] los medicamentos edvin se prescriben 2. Seguimiento con carty cardilogo en 1 semana 3. seguimiento con carty mdico de cabecera en 1 semana 4. Utilice el andador de la aly delantera cuando se sienta inestable en amarilis pies. SHANAE ALANIS MD Jul 13, 2017 11:25
--- NOTE | 2017-07-13 11:25 | PDOCDIS ---
Discharge Instructions DIAGNOSIS Discharge Diagnosis 1. Acute chest pain 2. h/o Atrial fibrillation on Xarelto 3. CAD s/p pacer 4. Hypothyroidism 5. Anemia 6. Acute on chronic HF 7. Moderate to severe mitral valve regurgitation CONDITION Patient Condition: Good HOME CARE INSTRUCTIONS: Diet Instructions: Low Fat /CholesterolSpecial Diet: Low Fat Low Cholesterol FOLLOW UP/APPOINTMENTS Follow-up Plan 1. Take medications as prescribed 2. Follow up with your mail agent in 1 week 3. Follow up with your primary care physician in 1 week 4. Use front wheel walker when you are feeling unsteady on your feet. 1. [place] los medicamentos edvin se prescriben 2. Seguimiento con carty cardilogo en 1 semana 3. seguimiento con carty mdico de cabecera en 1 semana 4. Utilice el andador de la aly delantera cuando se sienta inestable en amarilis pies. SHANAE ALANIS MD Jul 13, 2017 11:25
--- NOTE | 2017-07-13 14:02 | PN ---
Date/Time of Note Date/Time of Note DATE: 07/13/17 TIME: 13:55 Assessment/Plan VTE Prophylaxis VTE Prophylaxis Intervention: other Lines/Catheters IV Catheter Type (from [facility]): Saline Lock Urinary Cath still in place: No Assessment/Plan Assessment/Plan 1. Chest pain r/o ACS - stress test performed this am and show no ischemic events - trops negative x3 - ECHO showed low EF - Cardiology consultation appreciated. 2. h/o Atrial fibrillation - Patient admits to being on Xarelto and Coreg at home. Will resume same medications - CHADS VASC score 3 - Rate controlled 3. CAD s/p pacer - Continue on home medications - recent change of pacer in 05/2017 4. Hypothyroidism - TSH slightly elevated. Will need to follow up with PCP for recheck in 4-6 weeks - continue levothyroxine 5. Anemia - continue home iron supplements 6. Acute on chronic HF - BNP 7020 - Lasix PO - monitor I/O and daily weights - ECHO shows EF 30-35% with moderate to severe MR 7. Disposition - awaiting cardiac clearance prior to discharge - will need FWW per PT. script sent to pharmacy Subjective 24 Hr Interval Summary Free Text/Dictation Patient states he is feeling better since admission and glad to know symptoms are because of his mitral valve which is a known issue rather than new cardiac issues. Tolerating diet and no new complaints. No overnight events. Exam/Review of Systems Vital Signs Vitals Vital Signs Date Time Temp Pulse Resp B/P Pulse Ox O2 Delivery O2 Flow Rate FiO2 07/13/17 12:23 116 07/13/17 11:59 98.0 18 132/60 98 07/13/17 09:00 Nasal Cannula 3.0 Intake and Output 07/12/17 07/12/17 07/13/17 15:00 23:00 07:00 Intake Total 580 ml 250 ml Balance 580 ml 250 ml Exam Constitutional: alert, distress, oriented, well developed Head: atraumatic, normocephalic Eyes: EOMI, PERRL ENMT: mucosa pink and moist Respiratory: clear to auscultation, No crackles/rales, No wheezing Cardiovascular: edema, irregular rhythm, nl pulses, systolic murmur Gastrointestinal: bowel sounds, soft, tender, No distended, No rebound or guarding Musculoskeletal: nl extremities to inspection Extremities: edema, No calf tenderness, No clubbing, No cyanosis Neurological: WATER RESOURCES TECHNICAL OFFICER II-XII intact, nl mental status Results Result Diagram: 07/13/1760007/13/17 06 Results 24 hrs Laboratory Tests Test 07/13/17 06:01 White Blood Count 7.4 Red Blood Count 4.50 L Hemoglobin 14.8 Hematocrit 43.0 Mean Corpuscular Volume 95.6 Mean Corpuscular Hemoglobin 32.9 Mean Corpuscular Hemoglobin Concent 34.4 Red Cell Distribution Width 14.2 Platelet Count 172 Mean Platelet Volume 11.5 H Neutrophils % 58.6 Lymphocytes % 24.2 Monocytes % 10.4 Eosinophils % 5.8 Basophils % 0.7 Nucleated Red Blood Cells % 0.0 Neutrophils # 4.3 Lymphocytes # 1.8 Monocytes # 0.8 Eosinophils # 0.4 Basophils # 0.1 Nucleated Red Blood Cells # 0.0 Sodium Level 143 Potassium Level 3.8 Chloride Level 100 Carbon Dioxide Level 30 Anion Gap 17 H Blood Urea Nitrogen 30 H Creatinine 1.32 H Glucose Level 104 Calcium Level 9.0 Phosphorus Level 4.1 Magnesium Level 1.9 Albumin 4.5 Medications Medications Current Medications Ferrous Sulfate (Ferrous Sulfate (Ec)) 325 mg BID PO Last administered on 09:06; Admin Dose 325 MG; Start 07/11/17 at 10:30 Lisinopril (Zestril) 2.5 mg DAILY PO Last administered on 07/13/17 09:09; Admin Dose 2.5 MG; Start 07/11/17 at 10:30 Ondansetron HCl (Zofran Inj) 4 mg Q6H PRN IV NAUSEA AND/OR VOMITING; Start 07/11/17 at 09:30 Aspirin (Aspirin) 81 mg DAILY PO Last administered on 07/13/17 09:06; Admin Dose 81 MG; Start 07/12/17 at 09:00 Nitroglycerin (Nitroglycerin (Sl Tab) 0.4 Mg) 1 tab Q5M PRN SL CHEST PAIN; Start 07/11/17 at 09:30 Acetaminophen (Tylenol Tab) 650 mg Q6H PRN PO PAIN LEVEL 1-3 OR FEVER; Start 07/11/17 at 09:30 Acetaminophen/ Hydrocodone Bitart ([place] (5/325)) 1 tab Q6H PRN PO PAIN LEVEL 4 -6 Last administered on 07/12/17 22:41; Admin Dose 1 TAB; Start 07/11/17 at 09: 30 Morphine Sulfate (morphine) 2 mg Q4H PRN IV PAIN LEVEL 7-10 Last administered on 07/12/17 22:35; Admin Dose 2 MG; Start 07/11/17 at 09:30 Famotidine (Pepcid) 20 mg Q12 PO Last administered on 07/13/17 09:07; Admin Dose 20 MG; Start 07/11/17 at 09:30 Nystatin (Nystatin Oint) 1 applic BID TOP Last administered on 07/13/17 09:07 ; Admin Dose 1 APPLIC; Start 07/11/17 at 16:00 Metoprolol Tartrate (Lopressor) 25 mg BID PO Last administered on 07/13/17 09: 08; Admin Dose 25 MG; Start 07/11/17 at 21:00 Furosemide (Lasix) 40 mg DAILY@06 PO Last administered on 07/13/17 05:39; Admin Dose 40 MG; Start 07/13/17 at 06:00 SHANAE ALANIS MD Jul 13, 2017 14:02
--- NOTE | 2017-07-13 15:45 | CONS ---
Date/Time of Note Date/Time of Note DATE: 07/13/17 TIME: 15:42 Assessment/Plan Assessment/Plan Additional Assessment/Plan atypical chest pain atrial fibrillation s/p PPM hypothyroidism Anemia A.fib rate controlled Heart failure clinically compensated Continue Coreg Continue Digoxin Continue Lisinopril Continue Levothyroxine Continue Pradaxa Continue Lasix Continue GI and DVT Prophylaxis Consultation Date/Type/Reason Admit Date/Time Jul 11, 2017 at 08:28 Eyes: no complaints ENT: no complaints Respiratory: shortness of breath, No cough, No sputum, No wheezing Cardiovascular: chest pain, edema, lightheadedness, palpitations Gastrointestinal: diarrhea, nausea, pain, vomiting, No constipation Genitourinary: no complaints Musculoskeletal: no complaints Skin: No erythema, No pruritis Neurologic: No confusion, No headache Lymphatic: no complaints Psychological: no complaints Immunologic: no complaints Past Medical History Medical History: coronary artery disease, diabetes, hypothyroid Past Surgical History Past Surgical Hx: other (pacer placement 2012, replacement 2016) Social History Alcohol Use: none Smoking Status: Former smoker Drug Use: none Exam/Review of Systems Vital Signs Vitals Vital Signs Date Time Temp Pulse Resp B/P Pulse Ox O2 Delivery O2 Flow Rate FiO2 07/13/17 12:23 116 07/13/17 11:59 98.0 18 132/60 98 07/13/17 09:00 Nasal Cannula 3.0 Intake and Output 07/12/17 07/12/17 07/13/17 15:00 23:00 07:00 Intake Total 580 ml 250 ml Balance 580 ml 250 ml Exam Constitutional: alert Head: atraumatic, normocephalic Neck: non-tender, supple Respiratory: clear to auscultation Cardiovascular: irregular rhythm (no m/r/g) Gastrointestinal: nl liver, spleen, non-tender, soft Extremities: normal pulses Results Result Diagram: 07/13/17 0601 07/13/17 0601 Results 24 hrs Laboratory Tests Test 07/13/17 06:01 White Blood Count 7.4 Red Blood Count 4.50 L Hemoglobin 14.8 Hematocrit 43.0 Mean Corpuscular Volume 95.6 Mean Corpuscular Hemoglobin 32.9 Mean Corpuscular Hemoglobin Concent 34.4 Red Cell Distribution Width 14.2 Platelet Count 172 Mean Platelet Volume 11.5 H Neutrophils % 58.6 Lymphocytes % 24.2 Monocytes % 10.4 Eosinophils % 5.8 Basophils % 0.7 Nucleated Red Blood Cells % 0.0 Neutrophils # 4.3 Lymphocytes # 1.8 Monocytes # 0.8 Eosinophils # 0.4 Basophils # 0.1 Nucleated Red Blood Cells # 0.0 Sodium Level 143 Potassium Level 3.8 Chloride Level 100 Carbon Dioxide Level 30 Anion Gap 17 H Blood Urea Nitrogen 30 H Creatinine 1.32 H Glucose Level 104 Calcium Level 9.0 Phosphorus Level 4.1 Magnesium Level 1.9 Albumin 4.5 Medications Medications Current Medications Ferrous Sulfate (Ferrous Sulfate (Ec)) 325 mg BID PO Last administered on 09:06; Admin Dose 325 MG; Start 07/11/17 at 10:30 Lisinopril (Zestril) 2.5 mg DAILY PO Last administered on 07/13/17 09:09; Admin Dose 2.5 MG; Start 07/11/17 at 10:30 Ondansetron HCl (Zofran Inj) 4 mg Q6H PRN IV NAUSEA AND/OR VOMITING; Start 07/11/17 at 09:30 Aspirin (Aspirin) 81 mg DAILY PO Last administered on 07/13/17 09:06; Admin Dose 81 MG; Start 07/12/17 at 09:00 Nitroglycerin (Nitroglycerin (Sl Tab) 0.4 Mg) 1 tab Q5M PRN SL CHEST PAIN; Start 07/11/17 at 09:30 Acetaminophen (Tylenol Tab) 650 mg Q6H PRN PO PAIN LEVEL 1-3 OR FEVER; Start 07/11/17 at 09:30 Acetaminophen/ Hydrocodone Bitart ([place] (5/325)) 1 tab Q6H PRN PO PAIN LEVEL 4 -6 Last administered on 07/12/17 22:41; Admin Dose 1 TAB; Start 07/11/17 at 09: 30 Morphine Sulfate (morphine) 2 mg Q4H PRN IV PAIN LEVEL 7-10 Last administered on 07/12/17 22:35; Admin Dose 2 MG; Start 07/11/17 at 09:30 Famotidine (Pepcid) 20 mg Q12 PO Last administered on 07/13/17 09:07; Admin Dose 20 MG; Start 07/11/17 at 09:30 Nystatin (Nystatin Oint) 1 applic BID TOP Last administered on 07/13/17 09:07 ; Admin Dose 1 APPLIC; Start 07/11/17 at 16:00 Furosemide (Lasix) 40 mg DAILY@06 PO Last administered on 07/13/17 05:39; Admin Dose 40 MG; Start 07/13/17 at 06:00 Carvedilol (Coreg) 12.5 mg BID PO ; Start 07/13/17 at 21:00 Dabigatran (PRADaxa) 150 mg BID PO ; Start 07/13/17 at 21:00 Digoxin (Digoxin) 0.25 mg DAILY@13 PO ; Start 07/14/17 at 13:00 SRIKANTH BOSCH M.D. Jul 13, 2017 15:45
--- NOTE | 2017-07-13 16:32 | DS ---
Date/Time of Note Date/Time of Note DATE: 07/13/17 TIME: 16:26 Discharge Summary Admission/Discharge Info Admit Date/Time Jul 11, 2017 at 08:28 Discharge Date/Time 07/13/17 Discharge Diagnosis 1. Acute chest pain 2. h/o Atrial fibrillation on Xarelto 3. CAD s/p pacer 4. Hypothyroidism 5. Anemia 6. Acute on chronic HF 7. Moderate to severe mitral valve regurgitation Patient Condition: Good Consults Cardiology- Dr. Swanson Procedures PROCEDURE: Patient with standard Lexiscan infusion protocol over 10 seconds followed by radiolabeled tracer. The patient's test was stopped due to completion of protocol. Maximal blood pressure during the test 149/66. Maximal heart rate during the test 84. ELECTROCARDIOGRAM FINDINGS: The patient did not develop any new Lexiscan- induced ST or T-wave changes from baseline abnormalities documented, but had occasional PVCs versus aberrantly conducted supraventricular beats. SYMPTOMS: The patient had no complaints of chest pain or shortness of breath during stress testing, mild stomach pain which resolved in recovery. IMPRESSION: 1. No Lexiscan-induced ST or T-wave changes from baseline abnormalities or diagnostic cardiac ischemia. 2. No complaints of chest pain or shortness of breath during stress testing. 3. Occasional premature ventricular contractions during stress testing. 4. Report of nuclear images to follow in separate dictation. ECHO 1. Mild concentric left ventricular hypertrophy. Moderate enlargement of left ventricle cavity. Moderate left ventricular systolic dysfunction. Ejection fraction is visually estimated at 30-35 %. Tissue Doppler/Mitral Doppler indices are consistent with restrictive physiology with markedly elevated left atrial pressure (Stage III-IV diastolic dysfunction). 2. Normal right ventricular size. Normal right ventricular systolic function. Pacemaker right heart. 3. Mitral valve leaflets appear mildly thickened. Mild mitral annular calcification. Moderate to severe mitral valve regurgitation. The regurgitation jet is eccentrically directed which may underestimate the severity of mitral regurgitation. 4. No hemodynamically significant aortic stenosis by doppler. Aortic cusps appear mildly calcified. Moderate aortic valve regurgitation. 5. Normal appearance of the tricuspid valve. Estimated peak PA systolic pressure 46 mmHg. There is mild to moderate tricuspid regurgitation. 6. Normal pulmonic valve appearance. There is mild pulmonic regurgitation. Hx of Present Illness 80 yo M with PMH CAD s/p pacer in 2012 with recent replacement in 2016, hypothyroidism, atrial fibrillation, and anemia presents to ED c/o sternal chest pain that radiates to right side of chest and shoulder. States moderate in severity, pressure like, and improvement after nitro and aspirin given in ED. Patient states pain started last night and had associated shortness of breath, palpitations, dizziness, nausea, and vomiting x 5 episodes. Patient also complaining of diarrhea as well. He follows with a Java Web Developer in [place] and was told he has a valve that is stenotic and will need replacing. Denies any headaches, loss of consciousness, visual changes, or constipation. Hospital Course Patient was admitted for cardiology workup and Cardiology was consulted and troponins were trended. Patient was continued on home medications and ECHO was ordered. ECHO showed EF 30-35% and moderate to severe MR. Patient underwent Lexiscan which did not show any acute ST changes. Patients chest pain and shortness of breath improved and after being told findings of stress test, was less anxious. Patient aware that he has a valve that is not functioning properly and he has had a discussion with his outside health information management director regarding having it repaired. Patients afib was controlled during hospital stay and no acute new issues arose. Per physical therapy patient would benefit from front wheel walker but patient believes his unsteadiness on his feet was medication induced after being given a medication to help him sleep. Patient was discharged home in good condition. Home Meds Active Scripts Front Wheel Walker* (Front Wheel Walker*) 1 Each Dme, 1 EACH [facility] DIRECTED, #1 DME 0 Refills Prov:SHANAE ALANIS MD 07/13/17 Reported Medications Potassium Chloride* (K-Dur*) 20 Meq Tab.prt.sr, 20 MEQ PO DAILY, TAB.SA 07/11/17 Lisinopril* (Lisinopril*) 2.5 Mg Tablet, 2.5 MG PO DAILY, #30 TAB 07/11/17 Furosemide* (Furosemide*) 40 Mg Tablet, 40 MG PO DAILY, TAB 07/11/17 Levothyroxine Sodium* (Levothyroxine Sodium*) 25 Mcg Tablet, 25 MCG PO BEFORE BREAKFAST, #30 TAB 07/11/17 Ferrous Sulfate* (Ferrous Sulfate*) 325 Mg Tabec, 325 MG PO BID, TAB 07/11/17 Dabigatran Etexilate Mesylate* (Pradaxa*) 150 Mg Capsule, 150 MG PO BID, CAP 06/12/17 Digoxin* (Digox*) 250 Mcg Tablet, 0.25 MG PO DAILY, TAB 06/12/17 Carvedilol* (Carvedilol*) 12.5 Mg Tablet, 12.5 MG PO BID, #60 TAB 06/10/17 Allopurinol* (Allopurinol*) 300 Mg Tablet, 300 MG PO DAILY, TAB 08/15/16 Discontinued Reported Medications Levothyroxine Sodium* (Levothyroxine Sodium*) 112 Mcg Tablet, 112 MCG PO BEFORE BREAKFAST, #30 TAB 06/12/17 Lisinopril* (Lisinopril*) 2.5 Mg Tablet, 2.5 MG PO DAILY, #30 TAB 06/10/17 Furosemide* (Furosemide*) 40 Mg Tablet, 40 MG PO DAILY, TAB 08/15/16 Follow-up Plan 1. Take medications as prescribed 2. Follow up with your health information management director in 1 week 3. Follow up with your primary care physician in 1 week 4. Use front wheel walker when you are feeling unsteady on your feet. 1. [place] los medicamentos edvin se prescriben 2. Seguimiento con carty cardilogo en 1 semana 3. seguimiento con carty mdico de cabecera en 1 semana 4. Utilice el andador de la aly delantera cuando se sienta inestable en amarilis pies. Primary Care Provider Time spent on discharge: > 30 minutes Pending Labs Laboratory Tests Test 07/13/17 06:01 White Blood Count 7.410^3/ul (4.8-10.8) Red Blood Count 4.5010^6/ul (4.70-6.10) Hemoglobin 14.8g/dl (14.0-18.0) Hematocrit 43.0% (42.0-52.0) Mean Corpuscular Volume 95.6fl (82.0-101.0) Mean Corpuscular Hemoglobin 32.9pg (29.0-33.0) Mean Corpuscular Hemoglobin Concent 34.4g/dl (32.0-37.0) Red Cell Distribution Width 14.2% (11.5-14.5) Platelet Count 48961^3/UL (140-415) Mean Platelet Volume 11.5fl (7.4-10.4) Neutrophils % 58.6% (39.0-77.0) Lymphocytes % 24.2% (15.0-51.0) Monocytes % 10.4% (0.0-11.0) Eosinophils % 5.8% (0.0-7.0) Basophils % 0.7% (0.0-2.0) Nucleated Red Blood Cells % 0.0/100WBC (0.0-0.0) Neutrophils # 4.310^3/ul (1.6-7.5) Lymphocytes # 1.810^3/ul (0.8-2.9) Monocytes # 0.810^3/ul (0.3-0.9) Eosinophils # 0.410^3/ul (0.0-0.5) Basophils # 0.110^3/ul (0.0-0.1) Nucleated Red Blood Cells # 0.010^3/ul (0.0-0.0) Sodium Level 143mmol/L (135-144) Potassium Level 3.8mmol/L (3.5-5.1) Chloride Level 100mmol/L (97-110) Carbon Dioxide Level 30mmol/L (21-31) Anion Gap 17 (8-16) Blood Urea Nitrogen 30mg/dl (7-20) Creatinine 1.32mg/dl (0.61-1.24) Glucose Level 104mg/dl (70-220) Calcium Level 9.0mg/dl (8.4-10.2) Phosphorus Level 4.1mg/dl (2.5-4.9) Magnesium Level 1.9mg/dl (1.7-2.5) Albumin 4.5g/dl (3.3-4.9) SHANAE ALANIS MD Jul 13, 2017 16:32
[2017-07-13] MEDS ORDERED: DABIGATRAN 150 MG CAP PO SCH (21:00)
[2017-07-14] MEDS ORDERED: DIGOXIN 0.25 MG TAB PO SCH (13:00)
== END 2017-07-13 19:00 | disposition home or self-care (01) | DRG 293 ==
LOC: EDBD → E/R 06:36 → MERGE 06:36 → TEL 08:28
PROVIDERS: ADMIT Internal Medicine; ATTEND Internal Medicine
DX: I50.23 Acute on chronic systolic (congestive) heart failure (principal); I48.2 Chronic atrial fibrillation; E11.9 Type 2 diabetes mellitus without complications; D64.9 Anemia, unspecified; E03.9 Hypothyroidism, unspecified; R07.9 Chest pain, unspecified; I25.10 Atherosclerotic heart disease of native coronary artery without angina pectoris; R11.2 Nausea with vomiting, unspecified; I34.0 Nonrheumatic mitral (valve) insufficiency; Z95.0 Presence of cardiac pacemaker; Z79.4 Long term (current) use of insulin; Z79.02 Long term (current) use of antithrombotics/antiplatelets; Z79.82 Long term (current) use of aspirin
CPT/HCPCS: 36415; 71010; 78452; 80053; 80061; 80069; 81001; 82550; 82553; 83036; 83690; 83735; 83880; 84100; 84443; 84484; 85025; 85610; 85730; 87040; 87086; 90686; 93005; 93017; 93306; 96372; 96374; 97162; 97166; A9500; A9505; J1200; J1650; J1940; J2270; J2785

== ENCOUNTER 2017-10-21 13:47 | Inpatient (IN) | END 2017-10-24 20:40 | disposition home or self-care (01) | DRG 293 ==

== ENCOUNTER 2018-08-26 13:51 | Inpatient (IN) | END 2018-08-29 18:44 | DRG 64 ==

== ENCOUNTER 2018-08-29 16:54 | Inpatient (IN) | payer MEDICARE, OTHER ==
[~2018-08-29] VITALS: Ht 162.6 cm; Wt 70.0 kg
[~2018-08-29 16:54] MED LIST changes: +ATOR-2 PO; -DIGO250T16 PO; +DIGO250T6 PO; +FER325 PO; -LEVO112T57 PO; +LEVO25TA50 PO; +POTA20TA15 PO; +SPIR25TA PO
[2018-08-29 19:06] VITALS: BP 123/73; PULSE 67; RESP 18
[2018-08-29] MEDS ORDERED: BISACODYL 10 MG SUPP PR PRN (20:30)
[2018-08-29] MEDS ORDERED: MAGNESIUM HYDROXIDE 30ML CUP PO PRN (20:30)
[2018-08-29] MEDS ORDERED: ACETAMINOPHEN 325 MG TAB PO PRN (20:30)
[2018-08-29] MEDS ORDERED: LACTULOSE 30ML CUP PO PRN (20:30)
--- NOTE | 2018-08-29 20:30 | NUR ---
Pt admitted at Acute Rehab unit with a diagnosis of Stroke. Pt came in via wheelchair accompanied by family. Patient is alert & oriented x2-3 with episodes of forgetfulness. He is Amharic speaking and able to answers questions. He is continent of both bowel and bladder and uses toilet, episode of loose BM noted. Stool culture, Urine and MRSA culture collected. He has a periperal IV on his left forearm patent and intact. Pt stable at this time and vitals noted WNL. Reviewed and verified admission orders with Dr. White. will continue to monitor patient.
[2018-08-29] MEDS ORDERED: SENNA TAB PO SCH (21:00)
[2018-08-29] MEDS ORDERED: DOCUSATE SODIUM 100 MG CAP PO SCH (21:00)
[2018-08-29 22:00] VITALS: Ht 162.6 cm; Wt 70.0 kg
[2018-08-29] MEDS ORDERED: ZOLPIDEM 5 MG TAB PO PRN (22:00)
[2018-08-29] MEDS ORDERED: HYDROCODONE/APAP (5/325) TAB PO PRN (22:00)
[2018-08-29] MEDS ORDERED: morphine LIQ (10 MG/5 ML) CUP PO PRN (22:00)
[2018-08-29] MEDS ORDERED: ONDANSETRON 4 MG INJ IV PRN (22:00)
--- NOTE | 2018-08-29 22:42 | NUR ---
TOBRAMYCIN PER RX Current ABXs: TOBRAMYCIN Levels/Significant Labs: 08/29 SCR 1.08 Comments/Plan: START TOBRAMYCIN 300 MG IV Q36H
[2018-08-29] MEDS ORDERED: TOBRAMYCIN IV PER PHARMACY XX SCH (23:00)
[2018-08-30] MEDS: ATORVASTATIN 80 MG TAB PO SCH ×2 (00:18→20:59)
[2018-08-30] MEDS: DABIGATRAN 150 MG CAP PO SCH ×3 (00:19→20:58)
[2018-08-30] MEDS: TOBRAMYCIN 300 MG in DEXTROSE 5% 100 ML IVPB SCH (00:22)
[2018-08-30 02:00] VITALS: BP 128/68; PULSE 72; RESP 18
--- NOTE | 2018-08-30 05:32 | NUR ---
End of Shift Note During the shift at 2300, pt received. Stool softeners held due to loose stools. Pt has hard time visually focusing on things due the affectation of occipital area secondary to stroke. Pt has generalized weakness and use regular walker going to the toilet. At 0020, Tobramycin 300 mg on 100 ml D5W infused in an hour. Bed alarm on, bed on lowest position, side rails up 2x, and call light within reach. will continue to monitor
--- NOTE | 2018-08-30 06:00 | NUR ---
IV peripheral line During the rounds. Stain of blood noticed on pillow case and on the blanket. On assessment, Peripheral IV line was accidentally pulled by the pt. VS are within normal limits. Beddings changed. will continue to monitor
[2018-08-30] MEDS: FUROSEMIDE 20 MG TAB PO SCH ×2 (06:06→17:21)
[2018-08-30] MEDS: LEVOTHYROXINE 25 MCG TAB PO SCH ×2 (06:06→07:05)
[2018-08-30 07:00] VITALS: BP 113/66; PULSE 67; RESP 16
[2018-08-30] MEDS: LISINOPRIL 5 MG TAB PO SCH (08:31)
[2018-08-30] MEDS: SPIRONOLACTONE 25 MG TAB PO SCH (08:31)
[2018-08-30] MEDS: ALLOPURINOL 300 MG TAB PO SCH (08:31)
[2018-08-30] MEDS: POTASSIUM CHLORIDE (SR) 20 MEQ TAB PO SCH (08:31)
--- NOTE | 2018-08-30 09:34 | NUR ---
PT reported pt has episode of orthostatic hypotension. Per protocol, QASIM stockings & abdominal binder ordered.
--- NOTE | 2018-08-30 11:26 | NUR ---
Per Dr. West, may apply bilateral SCDs.
--- NOTE | 2018-08-30 11:49 | NUR ---
Pt able to tolerate his rehab evaluation today. Protocol for orthostatic hypotension done. IV line inserted on LFA G22, SL w/ good venous return, tolerated well. Safety precautions observed at all times. Bed kept low & in locked pos. Call light w/in reach. Endorsed to [facility] for DC.
--- NOTE | 2018-08-30 12:27 | NUR ---
Took over patient care from Nelli. Patient sitting in WC eating lunch without complaint Chair alarm on, tray in front of patient and call light in reach.
[2018-08-30] MEDS: DIGOXIN 0.25 MG TAB PO SCH (13:00)
--- NOTE | 2018-08-30 13:42 | CONS ---
DATE OF ADMISSION: 08/29/2018 DATE OF CONSULTATION: 08/30/2018 TYPE OF CONSULTATION: Rehabilitation postadmission physician evaluation. 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 ACTIVE COMORBIDITIES: 1. Urinary tract infection. 2. History of CHF. 3. History of AICD. 4. Hypothyroidism. 5. Hypertension. 6. Impairments in self-care, mobility and cognition. HISTORY OF PRESENT ILLNESS: The patient is a pleasant, right-handed 83-year-old gentleman with a history of CHF, AICD placement, atrial fibrillation, coronary artery disease, hypothyroidism, hypertension and gout who was noted to have altered mental status and generalized weakness. A head CT was performed and did demonstrate left posterior cerebral artery territory involving left temporal lobe and left occipital lobe infarcts. The patient's hospital course was also notable for acute metabolic encephalopathy in addition to urinary tract infection. The patient with significant impairments in self-care, mobility, and cognition as compared to baseline. The patient has been cleared to transfer to the rehabilitation unit for comprehensive interdisciplinary rehab care. FUNCTIONAL HISTORY: Prior to recent events, the patient was independent in self-care tasks and mobility. CURRENT FUNCTIONAL STATUS: Minimal assist for self-care and mobility tasks. I have reviewed the preadmission screen and the patient's current functional status is consistent with the preadmission screen. FAMILY AND SOCIAL HISTORY: The patient lives with family and hopes to return there upon discharge. He does live in an apartment with stairs. PAST MEDICAL HISTORY: 1. Hypertension. 2. Coronary artery disease. 3. Congestive heart failure. 4. Atrial fibrillation. 5. Hypothyroidism. 6. Hypertension. 7. Gout. CURRENT MEDICATIONS: 1. Pradaxa 150 p.o. b.i.d. 2. Carvedilol 12.5 mg p.o. b.i.d. 3. Allopurinol 300 mg p.o. daily. 4. Lisinopril 2.5 mg p.o. daily. 5. Levothyroxine 25 mcg p.o. daily. 6. Ferrous sulfate 325 p.o. b.i.d. 7. Lanoxin 0.25 mg p.o. daily. ALLERGIES: THE PATIENT WITH NO KNOWN DRUG ALLERGIES. PHYSICAL EXAMINATION: VITAL SIGNS: The patient is currently afebrile. Stable vital signs. HEENT: Extraocular motion intact. Oropharynx clear. NECK: Supple. LUNGS: Clear anteriorly. CARDIAC: S1, S2. ABDOMEN: Soft, nontender, positive bowel sounds. NEUROLOGIC: He is awake and alert. He is oriented to person. He will follow simple 1-step commands. He demonstrates 4/5, right upper extremity and lower extremity strength, 4+ left upper and left lower extremity. The patient does have impaired static and dynamic balance. PLAN: The patient has been admitted for comprehensive interdisciplinary acute rehab and anticipated to tolerate 3 hours a day therapy in divided doses for at least 5 out of 7 days a week. Treatment plan will include: 1. Physical therapy to focus on bed mobility, transfers, household ambulation, with the goal of having the patient reach standby assist level. 2. Occupational therapy to focus on hygiene, grooming, dressing, bathing, toileting activities, with the goal of having the patient reach standby assist level. 3. Speech therapy for full cognitive assessment and retraining , with the goal of having the patient return to baseline cognition. 4. Rehabilitation nursing carryover of therapeutic interventions in addition to goal of continent of bowel and bladder, and the patient education with regard to the aforementioned issues. 5. Neuropsychology for full cognitive assessment and retraining. ESTIMATED LENGTH OF STAY: 14 days. DISPOSITION GOAL: Home. REHABILITATION BARRIER: Cognition. INTERVENTION FOR BARRIER: Speech therapy in addition to neuropsychology. I acknowledge that I performed a full physical examination on this patient within 24 hours of admission to the rehabilitation unit. I believe the patient is a good candidate for comprehensive interdisciplinary rehab care and is anticipated to make reasonable goals in a reasonable period of time as outlined above. Dictated By: TATUM ROLLINS/MALIKA Conf#: [id number] DID#: [id number] MTDD
[2018-08-30 14:00] VITALS: BP 104/61; PULSE 60; RESP 16
--- NOTE | 2018-08-30 15:34 | CONS ---
Date/Time of Note Date/Time of Note DATE: 08/30/18 TIME: 15:31 Consultation Date/Type/Reason Admit Date/Time Aug 29, 2018 at 18:59 Initial Consult Date SUBJECTIVE: Patient is awake, alert, resting in bed. No fevers. VS: stable. LABS: reviewed. WBC- MICROBIOLOGY: Blood culture repeated negative, initial culture grew coag negative staph species 2D echo revealed no vegetations, repeat blood cultures negative Antimicrobials: Tobramycin Physical examination: GEN: Well-nourished obese elderly man who is alert in no distress. Head atraumatic normocephalic. Neck is supple Chest rise symmetrical breath sounds diminished bases. Heart: S1-S2. Abdomen soft bowel sounds present. Extremities without cyanosis. Assessment: 1. Sepsis, present on admission 2. E. coli UTI 3. Gram-positive cocci bacteremia consistent with contaminant 4. Sub-acute CVA 5. Coronary artery disease with mild aortic stenosis 6. Diastolic dysfunction with ejection fraction of 45% 7. Atrial fibrillation, status post AICD Plan: Patient is clinically stable. Continue with tobramycin. Exam/Review of Systems Vital Signs Vitals Vital Signs Date Temp Pulse Resp B/P (MAP) Pulse Ox O2 O2 Flow FiO2 Time Delivery Rate 08/30/18 97.5 60 16 104/61 97 Room Air 14:00 (75) Intake and Output 08/29/18 08/29/18 08/30/18 1515:00 23:00 07:00 IntakeIntake Total 170 ml OutputOutput Total 150 ml BalanceBalance 20 ml CECILIA JONES Aug 30, 2018 15:34
[2018-08-30] MEDS ORDERED: VANCOMYCIN 1.25 GM in SOD CHLORIDE 0.9% 250 ML IVPB SCH (16:00)
--- NOTE | 2018-08-30 16:16 | HP ---
Date/Time of Note Date/Time of Note DATE: 08/30/18 TIME: 16:09 Assessment/Plan VTE Prophylaxis Risk score (from Nsg)>0 risk: 6 Pharmacological prophylaxis: other Lines/Catheters IV Catheter Type (from Nrsg): Saline Lock Urinary Cath still in place: No Assessment/Plan Hospital Course 1. Acute metabolic encephalopathy secondary to sepsis and CVA-improved CT head shows a subacute infarct within the left posterior cerebral artery territory CTA of the head and neck normal except for left V4 segments which correlates with area of infarction MRI unable to be done secondary to history of AICD Continue statin and Pradaxa Continue rehab 2. CVA Pradaxa and statin Neurology consultation appreciated, CT findings as above Echo shows no thrombus Continue rehab 3. Bacteremia Blood cultures grew coag negative staph x2 and repeat cultures are negative, positive cultures were a likely contaminant Status post vancomycin IV, ID has discontinued vancomycin Echo with no vegetations 4. UTI Urine culture growing MDR E. coli Culture shows sensitivities only to amikacin and tobramycin Tobramycin started by ID 5. History of CHF status post AICD Patient euvolemic Continue home meds Echo shows an EF of 45% 6. Hypothyroidism Continue home meds 7. Hypertension Continue home meds Prophylaxis: Patient on Pradaxa HPI/ROS Admit Date/Time Admit Date/Time Aug 29, 2018 at 18:59 Hx of Present Illness Patient is an 83-year-old male with likely chronic encephalopathy, history of CHF status post AICD, hypertension, hypothyroidism who was recently hospitalized for acute metabolic encephalopathy secondary to sepsis and CVA. Patient did have a CT head that showed a subacute infarct within the left posterior cerebral artery territory, MRI was unable to be done secondary to AICD. Patient did have 2 blood cultures are positive for coag negative staph likely secondary to contamination and repeat blood cultures were negative. Patient did receive vancomycin IV but has since been discontinued by ID. Patient also was noted to have a UTI secondary to a multidrug-resistant E. coli strain. Patient has been started on tobramycin before the UTI. Of note echo showed no evidence of vegetations and an EF of 45%. Patient was seen by neurology during recent hospitalization patient was continued on his statin and Pradaxa. Patient was transferred to acute rehab to undergo physical therapy and speech therapy. Patient has no acute complaints at this time. ROS Constitutional: no complaints, improved Eyes: no complaints ENT: no complaints Respiratory: no complaints Cardiovascular: no complaints Gastrointestinal: no complaints Genitourinary: no complaints Musculoskeletal: no complaints Skin: no complaints Neurologic: no complaints Endocrine: no complaints Lymphatic: no complaints Psychological: no complaints, nl mood/affect Immunologic: no complaints PMH/Family/Social Past Medical History As per HPI Coded Allergies: No Known Allergy (Unverified , 10/21/17) Past Surgical History Past Surgical Hx: other Family History Significant Family History: no pertinent family hx Social History Alcohol Use: rarely Smoking Status: Former smoker Drug Use: none Exam/Review of Systems Vital Signs Vitals Vital Signs Date Temp Pulse Resp B/P (MAP) Pulse Ox O2 O2 Flow FiO2 Time Delivery Rate 08/30/18 97.5 60 16 104/61 97 Room Air 14:00 (75) Intake and Output 08/29/18 08/29/18 08/30/18 1515:00 23:00 07:00 IntakeIntake Total 170 ml OutputOutput Total 150 ml BalanceBalance 20 ml Exam Constitutional: alert Respiratory: clear to auscultation Cardiovascular: regular rate and rhythm Gastrointestinal: soft; No distended Musculoskeletal: nl extremities to inspection Medications Medications Current Medications Docusate Sodium (Colace) 100 mg BID PO ; Start 08/29/18 at 21:00; Status Hold Senna (Senokot) 1 tab HS PO ; Start 08/29/18 at 21:00; Status Hold Magnesium Hydroxide (Milk Of Mag) 30 ml BID PRN PO CONSTIPATION; Start at 20:30 Lactulose (Enulose) 20 gm DAILY PRN PO CONSTIPATION; Start 08/29/18 at 20:30 Bisacodyl (Dulcolax Supp) 10 mg DAILY PRN [place] CONSTIPATION; Start 08/29/18 at 20:30 Acetaminophen (Tylenol Tab) 650 mg Q4H PRN PO PAIN; Start 08/29/18 at 20:30 Ondansetron HCl (Zofran Inj) 4 mg Q6H PRN IV NAUSEA AND/OR VOMITING; Start 08/29/18 at 22:00 Tobramycin 300 mg/ Dextrose 107.5 ml @ 107.5 mls/ hr Q36H IVPB Last administered on 08/30/18at 00:22; Admin Dose 107.5 MLS/HR; Start 08/29/18 at 23:00 Spironolactone (Aldactone) 25 mg DAILY PO Last administered on 08/30/18 08:31; Admin Dose 25 MG; Start 08/30/18 at 09:00 Zolpidem Tartrate (Ambien) 5 mg HS PRN PO INSOMNIA; Start 08/29/18 at 22:00 Carvedilol (Coreg) 12.5 mg BID PO Last administered on 08/30/18at 08:32; Admin Dose 12.5 MG; Start 08/29/18 at 23:00 Digoxin (Digoxin) 0.25 mg DAILY@13 PO ; Start 08/30/18 at 13:00 Potassium Chloride (Klor-Con 20) 20 meq DAILY PO Last administered on 08/30/18 08:31; Admin Dose 20 MEQ; Start 08/30/18 at 09:00 Furosemide (Lasix) 20 mg BID DIURETICS PO Last administered on 08/30/18 06:06; Admin Dose 20 MG; Start 08/30/18 at 06:00 Atorvastatin Calcium (Lipitor) 80 mg HS PO Last administered on 08/30/18 00:18; Admin Dose 80 MG; Start 08/29/18 at 22:00 Morphine Sulfate (morphine) 6 mg Q4H PRN PO SEVERE PAIN LEVEL 7-10; Start 08/29/18 at 22:00 Acetaminophen/ Hydrocodone Bitart ([place] (5/325)) 1 tab Q6H PRN PO MODERATE PAIN LEVEL 4-6; Start 08/29/18 at 22:00 Dabigatran (PRADaxa) 150 mg BID PO Last administered on 08/30/18 08:31; Admin Dose 150 MG; Start 08/29/18 at 23:30 Levothyroxine Sodium (Synthroid) 25 mcg AC BREAKFAST PO Last administered on 08/30/18 06:06; Admin Dose 25 MCG; Start 08/30/18 at 07:00 Lisinopril (Zestril) 2.5 mg DAILY PO Last administered on 08/30/18 08:31; Admin Dose 2.5 MG; Start 08/30/18 at 09:00 Allopurinol (Zyloprim) 300 mg DAILY PO Last administered on 08/30/18 08:31; Admin Dose 300 MG; Start 08/30/18 at 09:00 Tobramycin (Tobramycin Iv Per Pharmacy) PER PHARMACY DOSING NOTE XX ; Start 08/29/18 at 23:00 Results Result Diagram: 08/30/18 0638 08/30/18 0638 Results 24 hrs Laboratory Tests Test 08/30/18 04:00 08/30/18 06:36 08/30/18 06:38 Urine Color YELLOW Urine Clarity CLEAR Urine pH 6.0 Urine Specific [place] 1.012 Urine Ketones NEGATIVE Urine Nitrite NEGATIVE Urine Bilirubin NEGATIVE Urine Urobilinogen NEGATIVE Urine Leukocyte Esterase NEGATIVE Urine Microscopic RBC 2 Urine Microscopic WBC 2 Urine Hemoglobin 1+ H Urine Glucose NEGATIVE Urine Total Protein NEGATIVE Random Tobramycin Level 6.1 White Blood Count 7.6 Red Blood Count 4.56 L Hemoglobin 14.2 Hematocrit 41.3 L Mean Corpuscular Volume 90.6 Mean Corpuscular Hemoglobin 31.1 Mean Corpuscular 34.4 Hemoglobin Concent Red Cell Distribution Width 13.2 Platelet Count 129 L Mean Platelet Volume 11.4 H Immature Granulocytes % 0.300 Neutrophils % 61.9 Lymphocytes % 18.7 Monocytes % 8.0 Eosinophils % 10.3 H Basophils % 0.8 Nucleated Red Blood Cells % 0.0 Immature Granulocytes # 0.020 Neutrophils # 4.7 Lymphocytes # 1.4 Monocytes # 0.6 Eosinophils # 0.8 H Basophils # 0.1 Nucleated Red Blood Cells # 0.0 Sodium Level 140 Potassium Level 3.9 Chloride Level 101 Carbon Dioxide Level 29 Anion Gap 10 Blood Urea Nitrogen 15 Creatinine 1.11 Est Glomerular Filtrat Rate mL/min Glucose Level 96 Calcium Level 9.1 Total Bilirubin 0.9 Direct Bilirubin 0.00 Indirect Bilirubin 0.9 Aspartate Amino 27 Transf (AST/SGOT) Alanine 17 Aminotransferase (ALT/SGPT) Alkaline Phosphatase 67 Total Protein 7.2 Albumin 3.9 Globulin 3.30 H Albumin/Globulin Ratio 1.18 ROSA MAN Aug 30, 2018 16:15
[2018-08-30 19:06] VITALS: BP 132/64; PULSE 68; RESP 18
[2018-08-31 02:00] VITALS: BP 118/67; PULSE 65; RESP 18
--- NOTE | 2018-08-31 05:27 | NUR ---
Pt resting in bed with eyes close. No acute distress noted. Pt remains stable and vitals noted WNL. Pt is alert & oriented x2-3, with episodes of forgetfulness. He is impulsive and requires redirection at times. Continent both bowel and bladder and goes to the toilet with the use of a FWW. All due medications given and all needs attended. Hourly roundings done. Bed alarm activated. Both side rails up. Call light within pt's reach. Addendum: 08/31/18 at 0545 by NIKHIL DE LA FUENTE RN ADDENDUM: Will endorse to AM nurse to educate patient regarding supervised outing, if possible when family is present.
[2018-08-31] MEDS: LEVOTHYROXINE 25 MCG TAB PO SCH (06:34)
[2018-08-31] MEDS: FUROSEMIDE 20 MG TAB PO SCH ×2 (06:34→17:22)
[2018-08-31 07:00] VITALS: BP 141/80; PULSE 70; RESP 18
[2018-08-31] MEDS: DABIGATRAN 150 MG CAP PO SCH ×2 (08:42→20:47)
[2018-08-31] MEDS: SPIRONOLACTONE 25 MG TAB PO SCH (08:42)
[2018-08-31] MEDS: LISINOPRIL 5 MG TAB PO SCH (08:42)
[2018-08-31] MEDS: POTASSIUM CHLORIDE (SR) 20 MEQ TAB PO SCH (08:42)
[2018-08-31] MEDS: ALLOPURINOL 300 MG TAB PO SCH (08:43)
--- NOTE | 2018-08-31 10:50 | PN ---
Date/Time of Note Date/Time of Note DATE: 08/31/18 TIME: 10:49 Assessment/Plan VTE Prophylaxis Risk score (from Ns)>0 risk: 5 SCD applied (from Ns): Yes Pharmacological prophylaxis: other Lines/Catheters IV Catheter Type (from Nrsg): Saline Lock Urinary Cath still in place: No Assessment/Plan Hospital Course 1. Acute metabolic encephalopathy secondary to sepsis and CVA-improved CT head shows a subacute infarct within the left posterior cerebral artery territory CTA of the head and neck normal except for left V4 segments which correlates with area of infarction MRI unable to be done secondary to history of AICD Continue statin and Pradaxa Continue rehab 2. CVA Pradaxa and statin Neurology consultation appreciated, CT findings as above Echo shows no thrombus Continue rehab 3. Bacteremia Blood cultures grew coag negative staph x2 and repeat cultures are negative, positive cultures were a likely contaminant Status post vancomycin IV, ID has discontinued vancomycin Echo with no vegetations 4. UTI Urine culture growing MDR E. coli Culture shows sensitivities only to amikacin and tobramycin Tobramycin started by ID 5. History of CHF status post AICD Patient euvolemic Continue home meds Echo shows an EF of 45% 6. Hypothyroidism Continue home meds 7. Hypertension Continue home meds Prophylaxis: Patient on Pradaxa Subjective 24 Hr Interval Summary Constitutional: no complaints Exam/Review of Systems Vital Signs Vitals Vital Signs Date Temp Pulse Resp B/P (MAP) Pulse Ox O2 O2 Flow FiO2 Time Delivery Rate 08/31/18 98.0 70 18 141/80 96 Room Air 07:00 (100) Intake and Output 08/30/18 08/30/18 08/31/18 1515:00 23:00 07:00 IntakeIntake Total 750 ml 820 ml OutputOutput Total 450 ml BalanceBalance 750 ml 370 ml Exam Constitutional: alert Respiratory: clear to auscultation Cardiovascular: regular rate and rhythm Gastrointestinal: soft; No distended Musculoskeletal: nl extremities to inspection ROSA MAN Aug 31, 2018 10:50
[2018-08-31 11:07] VITALS: BP 104/63; PULSE 60
[2018-08-31] MEDS: TOBRAMYCIN 300 MG in DEXTROSE 5% 100 ML IVPB SCH (11:07)
[2018-08-31] MEDS: DIGOXIN 0.25 MG TAB PO SCH (13:00)
--- NOTE | 2018-08-31 13:08 | CONS ---
Date/Time of Note Date/Time of Note DATE: 08/31/18 TIME: 13:07 Assessment/Plan Assessment/Plan Chief Complaint/Hosp Course Looks comfortable no fevers overnight Antimicrobials: Tobramycin Physical examination: Well-nourished obese elderly man who is alert in no distress. Head atraumatic normocephalic. Neck is supple chest rise symmetrical breath sounds diminished bases. Heart: S1-S2. Abdomen soft bowel sounds present. Extremities without cyanosis. Assessment: 1. S/p sepsis, present on admission 2. E. coli UTI 3. Gram-positive cocci bacteremia consistent with contaminant 4. Sub-acute CVA 5. Coronary artery disease with mild aortic stenosis 6. Diastolic dysfunction with ejection fraction of 45% 7. Atrial fibrillation, status post AICD Plan: Patient is clinically stable, completing abx Consultation Date/Type/Reason Admit Date/Time Aug 29, 2018 at 18:59 Initial Consult Date Type of Consult id Exam/Review of Systems Vital Signs Vitals Vital Signs Date Temp Pulse Resp B/P (MAP) Pulse Ox O2 O2 Flow FiO2 Time Delivery Rate 08/31/18 60 104/63 11:07 (77) 08/31/18 98.0 18 96 Room Air 07:00 Intake and Output 08/30/18 08/30/18 08/31/18 1515:00 23:00 07:00 IntakeIntake Total 750 ml 820 ml OutputOutput Total 450 ml BalanceBalance 750 ml 370 ml ANNABEL WILKINSON NP Aug 31, 2018 13:08
[2018-08-31 14:00] VITALS: BP 138/78; PULSE 68; RESP 18
--- NOTE | 2018-08-31 15:33 | NUR ---
No acute changes noted w/in shift. Pt was able to participate w/ his therapy however, had episode of orthostatic hypotension per therapist. Pt reassessed, BP went WNL, not in any distress, no c/o discomfort. IV line access kept patent & intact w/ no s/sx of infection/infiltration noted. Pt had BM x2. Safety precaution observed at all times. Bed kept low & in locked pos. Call light w/in reach. Endorsed to [facility] for DC.
--- NOTE | 2018-08-31 15:53 | NUR ---
Report received from RN, assumed care of patient for remainder of shift. Patient resting in bed at this time in no acute distress. Denies needs currently. Has call light within reach and bed alarm on.
--- NOTE | 2018-08-31 18:08 | NUR ---
EOSS-Has done well since taking over care. Family at bedside visiting. Up at edge of bed. Bed alarm on, hourly rounding completed. Continue to monitor.
[2018-08-31 20:00] VITALS: BP 126/63; PULSE 63; RESP 18
[2018-08-31] MEDS: ATORVASTATIN 80 MG TAB PO SCH (20:47)
[2018-09-01 02:22] VITALS: BP 98/57; PULSE 71; RESP 18
--- NOTE | 2018-09-01 05:41 | NUR ---
EOSS Pt sleep at this time. No s/s of distress. No complaints of pain at this time. Due meds given. Needs attended to. Kept comfortable. Safety precautions in place. Frequent checks done. Encouraged to call fro help whenever necessary. Will endorse accordingly.
[2018-09-01] MEDS: FUROSEMIDE 20 MG TAB PO SCH ×2 (05:58→17:35)
[2018-09-01] MEDS: LEVOTHYROXINE 25 MCG TAB PO SCH (05:58)
[2018-09-01 07:00] VITALS: BP 124/73; PULSE 60; RESP 18
--- NOTE | 2018-09-01 08:33 | PN ---
Date/Time of Note Date/Time of Note DATE: 09/01/18 TIME: 08:26 Assessment/Plan VTE Prophylaxis Risk score (from Ns)>0 risk: 5 SCD applied (from Ns): No SCD contraindicated: other (pradaxa) Pharmacological prophylaxis: other (pradaxa) Lines/Catheters IV [facility]from [facility] Saline Lock Urinary Cath still in place: No Assessment/Plan Hospital Course SUBJECTIVE: Lying in bed comfortably. Denies any acute discomfort. OBJECTIVE: Vital signs-see below PHYSICAL EXAM: Constitutional: Well-developed, adequately built, lying in bed comfortably. Psych: nl mood/affect, no complaints Head: atraumatic, normocephalic Eyes: nl conjunctiva, nl sclera ENMT: mucosa pink and moist, nl external ears & nose Neck: non-tender, supple Respiratory: clear to auscultation, normal air movement Cardiovascular: nl pulses, regular rate and rhythm Gastrointestinal: non-tender, soft, bowel sounds active in all 4 quadrants. Musculoskeletal/extremities: Mild weakness to bilateral upper and lower extremities. Nl extremities to inspection, motor strength 4/5 bilaterally, no focal deficit. Normal pulses,no cyanosis, no edema. Neurological: Alert oriented 3,nl speech, nl strength Skin: nl turgor ASSESSMENT/PLAN: 1. CVA.CT head shows a subacute infarct within the left posterior cerebral artery territory,MRI unable to be done secondary to history of AICD Pradaxa and statin Neurology consultation appreciated, CT findings as above Echo shows no thrombus Continue rehab 2. Status post sepsis with UTI. -Approaching antibiotic completion. 3. UTI Repeat urine culture negative. ID following. Consider de-escalation/antibiotic discontinuation. 4.chronic CHF status post AICD. TTE with EF 45%. Patient euvolemic Continue diuretics, NICHOLAS inhibitors, beta-blockers, Aldactone 5. Hypothyroidism on synthroid 7. Hypertension Stable Continue antihypertensives. Prophylaxis: Pradaxa Patient was seen in collaboration with Exam/Review of Systems Vital Signs Vitals Vital Signs Date Temp Pulse Resp B/P (MAP) Pulse Ox O2 O2 Flow FiO2 Time Delivery Rate 09/01/18 98.1 60 18 124/73 99 Room Air 07:00 (90) Intake and Output 08/31/18 08/31/18 09/01/18 1515:00 23:00 07:00 IntakeIntake Total 107.5 ml 1200 ml OutputOutput Total 800 ml 950 ml BalanceBalance 107.5 ml 400 ml -950 ml RITA SUGGS NP Sep 01, 2018 08:33
[2018-09-01] MEDS: SPIRONOLACTONE 25 MG TAB PO SCH (08:55)
[2018-09-01] MEDS: LISINOPRIL 5 MG TAB PO SCH (08:55)
[2018-09-01] MEDS: POTASSIUM CHLORIDE (SR) 20 MEQ TAB PO SCH (08:55)
[2018-09-01] MEDS: DABIGATRAN 150 MG CAP PO SCH ×2 (08:55→20:17)
[2018-09-01] MEDS: ALLOPURINOL 300 MG TAB PO SCH (08:59)
--- NOTE | 2018-09-01 11:53 | PN ---
Date/Time of Note Date/Time of Note DATE: 09/01/18 TIME: 11:51 Objective Vital Signs Date Temp Pulse Resp B/P (MAP) Pulse Ox O2 O2 Flow FiO2 Time Delivery Rate 09/01/18 98.1 60 18 124/73 99 Room Air 07:00 (90) Intake and Output 08/31/18 08/31/18 09/01/18 1414:59 22:59 06:59 IntakeIntake Total 107.5 ml 1200 ml OutputOutput Total 800 ml 950 ml BalanceBalance 107.5 ml 400 ml -950 ml Exam INTERDISCIPLINARY TEAM CONFERENCE EXAM PULM- cta ABD- soft, bs BOWEL- Cont BLADDER-Cont SKIN- improving OT- DRESSING-min BATHING-min TOILETING-min PT- BED MOBILITY-min TRANSFERS-min AMBULATION-min/mod 75 feet SPEECH- COGNITION-mod A/P- Interdisciplinary team conference held today. Please see interdisciplinary sheet. Working toward d.cEctor on 09/12 with post discharge follow up of physical therapy, occupational therapy and speech therapy. Results/Medications Result Diagram: 08/30/18 0638 08/30/18 0638 Medications Current Medications Docusate Sodium (Colace) 100 mg BID PO ; Start 08/29/18 at 21:00; Status Hold Senna (Senokot) 1 tab HS PO ; Start 08/29/18 at 21:00; Status Hold Magnesium Hydroxide (Milk Of Mag) 30 ml BID PRN PO CONSTIPATION; Start 08/29/18 at 20:30 Lactulose (Enulose) 20 gm DAILY PRN PO CONSTIPATION; Start 08/29/18 at 20:30 Bisacodyl (Dulcolax Supp) 10 mg DAILY PRN [place] CONSTIPATION; Start 08/29/18 at 20:30 Acetaminophen (Tylenol Tab) 650 mg Q4H PRN PO PAIN; Start 08/29/18 at 20:30 Ondansetron HCl (Zofran Inj) 4 mg Q6H PRN IV NAUSEA AND/OR VOMITING; Start 08/29/18 at 22:00 Tobramycin 300 mg/ Dextrose 107.5 ml @ 107.5 mls/ hr Q36H IVPB Last administer ed on 08/31/18at 11:07; Admin Dose 107.5 MLS/HR; Start 08/29/18 at 23:00 Spironolactone (Aldactone) 25 mg DAILY PO Last administered on 09/01/18 08:55; Admin Dose 25 MG; Start 08/30/18 at 09:00 Zolpidem Tartrate (Ambien) 5 mg HS PRN PO INSOMNIA Last administered on 08/30/18 20:59; Admin Dose 5 MG; Start 08/29/18 at 22:00 Carvedilol (Coreg) 12.5 mg BID PO Last administered on 09/01/18 08:55; Admin Dose 12.5 MG; Start 08/29/18 at 23:00 Digoxin (Digoxin) 0.25 mg DAILY@13 PO ; Start 08/30/18 at 13:00 Potassium Chloride (Klor-Con 20) 20 meq DAILY PO Last administered on 09/01/18 08:55; Admin Dose 20 MEQ; Start 08/30/18 at 09:00 Furosemide (Lasix) 20 mg BID DIURETICS PO Last administered on 09/01/18 05:58; Admin Dose 20 MG; Start 08/30/18 at 06:00 Atorvastatin Calcium (Lipitor) 80 mg HS PO Last administered on 08/31/18at 20:47; Admin Dose 80 MG; Start 08/29/18 at 22:00 Morphine Sulfate (morphine) 6 mg Q4H PRN PO SEVERE PAIN LEVEL 7-10; Start 08/29/18 at 22:00 Acetaminophen/ Hydrocodone Bitart ([place] (5/325)) 1 tab Q6H PRN PO MODERATE PAIN LEVEL 4-6; Start 08/29/18 at 22:00 Dabigatran (PRADaxa) 150 mg BID PO Last administered on 09/01/18 08:55; Admin Dose 150 MG; Start 08/29/18 at 23:30 Levothyroxine Sodium (Synthroid) 25 mcg AC BREAKFAST PO Last administered on 09/01/18 05:58; Admin Dose 25 MCG; Start 08/30/18 at 07:00 Lisinopril (Zestril) 2.5 mg DAILY PO Last administered on 09/01/18 08:55; Admin Dose 2.5 MG; Start 08/30/18 at 09:00 Allopurinol (Zyloprim) 300 mg DAILY PO Last administered on 09/01/18 08:59; Admin Dose 300 MG; Start 08/30/18 at 09:00 Tobramycin (Tobramycin Iv Per Pharmacy) PER PHARMACY DOSING NOTE XX ; Start 08/29/18 at 23:00 TATUM TRACEY MD Sep 01, 2018 11:53
--- NOTE | 2018-09-01 12:48 | CONS ---
Assessment/Plan Assessment/Plan Assessment/Plan 83 M c/ multiple comorbidities, including afib and cardiomyopathy s/p AICD...now in [facility] for acute rehab. CT head was notable for a subacute posterior circulation infarction...for which neurology is consulted... CTA is without evidence of multifocal stenoses.. Echo demonstrates mild LV systolic dysfunction and an EF of 45%, but is otherwise unrevealing P: OK to continue Pradaxa for now given subacute appearance of infarction.. Agree w/ lipitor daily (goal LDL <70) BP, glucose control and other medical management per primary PT/OT/ST per cat hooker Will follow clinically Result Diagram: 08/30/1838 08/30/1838 Consultation Date/Type/Reason Admit Date/Time Aug 29, 2018 at 18:59 Type of Consult Neurology Requesting Provider: ROSA MAN Date/Time of Note DATE: 09/01/18 TIME: 12:48 24 HR Interval Summary Free Text/Dictation Continues VR. No acute events reported. Pt states he's doing well with physical therapy. Exam Vital Signs Vitals Vital Signs Date Temp Pulse Resp B/P (MAP) Pulse Ox O2 O2 Flow FiO2 Time Delivery Rate 09/01/18 98.1 60 18 124/73 99 Room Air 07:00 (90) Intake and Output 08/31/18 08/31/18 09/01/18 1515:00 23:00 07:00 IntakeIntake Total 107.5 ml 1200 ml OutputOutput Total 800 ml 950 ml BalanceBalance 107.5 ml 400 ml -950 ml Exam PE: Gen Appearance: No Apparent Distress HEENT: Normocephalic Cardiovascular: Regular rate Lungs: Clear bilaterally Abdomen: Soft Extremities: Dry NE: The patient was alert and oriented to person, hospital, month, and year.... Language was normal. Fund of knowledge was adequate. Pupils were equal and reactive to light. There was no afferent pupillary defect. Peripheral/lateral visual dunlap were diminished in R eye. Funduscopic examination was limited. Extra-ocular movements were full. Ptosis was absent. There was no nystagmus. Facial sensation was normal. Face was symmetric with normal strength. Hearing was intact. Palate movements were normal. Neck strength was normal. There was normal tongue bulk and speed of movement. Tone was normal. Muscle bulk was normal. I did not see fasciculations. Arms and legs were strong. Vibration sensation was normal. Temperature and pinprick sensation was normal. Rapid alternating movements were normal. There was no dysmetria. There was no intention tremor. Gait was cautious.. Arm and leg reflexes were symmetric. Baker's sign was absent. Plantar responses were flexor. GIOVANNI LLAMAS NP Sep 01, 2018 12:48 GABINO STANFORD Sep 02, 2018 08:04
[2018-09-01] MEDS: DIGOXIN 0.25 MG TAB PO SCH (13:17)
[2018-09-01 14:15] VITALS: BP 123/77; PULSE 67; RESP 18
--- NOTE | 2018-09-01 15:58 | CONS ---
Date/Time of Note Date/Time of Note DATE: 09/01/18 TIME: 15:57 Assessment/Plan Assessment/Plan Chief Complaint/Hosp Course Awake, looks comfortable no fevers overnight Antimicrobials: Tobramycin Physical examination: Well-nourished obese elderly man who is alert in no distress. Head atraumatic normocephalic. Neck is supple chest rise symmetrical breath sounds diminished bases. Heart: S1-S2. Abdomen soft bowel sounds pres ent. Extremities without cyanosis. Assessment: 1. S/p sepsis, present on admission 2. E. coli UTI 3. Gram-positive cocci bacteremia consistent with contaminant 4. Sub-acute CVA 5. Coronary artery disease with mild aortic stenosis 6. Diastolic dysfunction with ejection fraction of 45% 7. Atrial fibrillation, status post AICD Plan: Stable, repeat urine culture negative, DC antibiotics Consultation Date/Type/Reason Admit Date/Time Aug 29, 2018 at 18:59 Initial Consult Date Type of Consult id Requesting Provider: ROSA MAN Exam/Review of Systems Vital Signs Vitals Vital Signs Date Temp Pulse Resp B/P (MAP) Pulse Ox O2 O2 Flow FiO2 Time Delivery Rate 09/01/18 97.7 67 18 123/77 95 Room Air 14:15 (92) Intake and Output 08/31/18 08/31/18 09/01/18 1515:00 23:00 07:00 IntakeIntake Total 107.5 ml 1200 ml OutputOutput Total 800 ml 950 ml BalanceBalance 107.5 ml 400 ml -950 ml Medications Medications Current Medications Docusate Sodium (Colace) 100 mg BID PO ; Start 08/29/18 at 21:00; Status Hold Senna (Senokot) 1 tab HS PO ; Start 08/29/18 at 21:00; Status Hold Magnesium Hydroxide (Milk Of Mag) 30 ml BID PRN PO CONSTIPATION; Start 08/29/18 at 20:30 Lactulose (Enulose) 20 gm DAILY PRN PO CONSTIPATION; Start 08/29/18 at 20:30 Bisacodyl (Dulcolax Supp) 10 mg DAILY PRN [place] CONSTIPATION; Start 08/29/18 at 20:30 Acetaminophen (Tylenol Tab) 650 mg Q4H PRN PO PAIN; Start 08/29/18 at 20:30 Ondansetron HCl (Zofran Inj) 4 mg Q6H PRN IV NAUSEA AND/OR VOMITING; Start 08/29/18 at 22:00 Tobramycin 300 mg/ Dextrose 107.5 ml @ 107.5 mls/ hr Q36H IVPB Last administered on 08/31/18at 11:07; Admin Dose 107.5 MLS/HR; Start 08/29/18 at 23:00 Spironolactone (Aldactone) 25 mg DAILY PO Last administered on 09/01/18 08:55; Admin Dose 25 MG; Start 08/30/18 at 09:00 Zolpidem Tartrate (Ambien) 5 mg HS PRN PO INSOMNIA Last administered on 08/30/18 20:59; Admin Dose 5 MG; Start 08/29/18 at 22:00 Carvedilol (Coreg) 12.5 mg BID PO Last administered on 09/01/18 08:55; Admin Dose 12.5 MG; Start 08/29/18 at 23:00 Digoxin (Digoxin) 0.25 mg DAILY@13 PO Last administered on 09/01/18 13:17; Admin Dose 0.25 MG; Start 08/30/18 at 13:00 Potassium Chloride (Klor-Con 20) 20 meq DAILY PO Last administered on 09/01/18 08:55; Admin Dose 20 MEQ; Start 08/30/18 at 09:00 Furosemide (Lasix) 20 mg BID DIURETICS PO Last administered on 09/01/18 05:58; Admin Dose 20 MG; Start 08/30/18 at 06:00 Atorvastatin Calcium (Lipitor) 80 mg HS PO Last administered on 08/31/18at 20:47; Admin Dose 80 MG; Start 08/29/18 at 22:00 Morphine Sulfate (morphine) 6 mg Q4H PRN PO SEVERE PAIN LEVEL 7-10; Start 08/29/18 at 22:00 Acetaminophen/ Hydrocodone Bitart ([place] (5/325)) 1 tab Q6H PRN PO MODERATE PAIN LEVEL 4-6; Start 08/29/18 at 22:00 Dabigatran (PRADaxa) 150 mg BID PO Last administered on 09/01/18 08:55; Admin Dose 150 MG; Start 08/29/18 at 23:30 Levothyroxine Sodium (Synthroid) 25 mcg AC BREAKFAST PO Last administered on 09/01/18 05:58; Admin Dose 25 MCG; Start 08/30/18 at 07:00 Lisinopril (Zestril) 2.5 mg DAILY PO Last administered on 09/01/18at 08:55; Admin Dose 2.5 MG; Start 08/30/18 at 09:00 Allopurinol (Zyloprim) 300 mg DAILY PO Last administered on 09/01/18at 08:59; Admin Dose 300 MG; Start 08/30/18 at 09:00 Tobramycin (Tobramycin Iv Per Pharmacy) PER PHARMACY DOSING NOTE XX ; Start 08/29/18 at 23:00 ANNABEL WILKINSON NP Sep 01, 2018 15:58
--- NOTE | 2018-09-01 18:31 | NUR ---
Pt sitting at the edge of the bed w/ family at bedside. No c/o pain w/in shift. IV line access kept patent & intact w/ no s/sx of infection/infiltration noted. Pt had BM. Needs attended. Hourly rounding done. Safety precaution observed at all times. Bed kept low & in locked pos. Call light w/in reach. Will endorse to PM RN for DC.
[2018-09-01 20:15] VITALS: BP 106/60; PULSE 69; RESP 18
[2018-09-01] MEDS: ATORVASTATIN 80 MG TAB PO SCH (20:16)
[2018-09-02 02:00] VITALS: BP 119/60; PULSE 67; RESP 17
[2018-09-02] MEDS: FUROSEMIDE 20 MG TAB PO SCH ×2 (06:17→17:13)
[2018-09-02] MEDS: LEVOTHYROXINE 25 MCG TAB PO SCH (06:17)
--- NOTE | 2018-09-02 06:21 | NUR ---
PATIENT SLEPT WELL. NO C/O PAIN OR DISCOMFORT. RECREATIONAL ACTIVITIES PROVIDED TO PATIENT;WATCHING TV. CALL LIGHT WITHIN REACH
[2018-09-02 07:25] VITALS: BP 112/60; PULSE 68; RESP 17
[2018-09-02] MEDS: POTASSIUM CHLORIDE (SR) 20 MEQ TAB PO SCH (08:05)
[2018-09-02] MEDS: ALLOPURINOL 300 MG TAB PO SCH (08:05)
[2018-09-02] MEDS: DABIGATRAN 150 MG CAP PO SCH ×2 (08:05→20:13)
[2018-09-02] MEDS: LISINOPRIL 5 MG TAB PO SCH (08:07)
[2018-09-02] MEDS: SPIRONOLACTONE 25 MG TAB PO SCH (08:07)
--- NOTE | 2018-09-02 09:40 | PN ---
Date/Time of Note Date/Time of Note DATE: 09/02/18 TIME: 09:39 Subjective Comfortable. STm impairments Objective Vital Signs Date Temp Pulse Resp B/P (MAP) Pulse Ox O2 O2 Flow FiO2 Time Delivery Rate 09/02/18 98.8 68 17 112/60 94 Room Air 07:25 (77) Intake and Output 09/01/18 09/01/18 09/02/18 1515:00 23:00 07:00 IntakeIntake Total 800 ml 740 ml OutputOutput Total 400 ml 100 ml 280 ml BalanceBalance 400 ml 640 ml -280 ml Exam pulm-cta abd-soft min assist transfer and ambulation Results/Medications Result Diagram: 08/30/1863708/30/18637 Medications Current Medications Docusate Sodium (Colace) 100 mg BID PO ; Start 08/29/18 at 21:00; Status Hold Senna (Senokot) 1 tab HS PO ; Start 08/29/18 at 21:00; Status Hold Magnesium Hydroxide (Milk Of Mag) 30 ml BID PRN PO CONSTIPATION; Start 08/29/18 at 20:30 Lactulose (Enulose) 20 gm DAILY PRN PO CONSTIPATION; Start 08/29/18 at 20:30 Bisacodyl (Dulcolax Supp) 10 mg DAILY PRN [place] CONSTIPATION; Start 08/29/18 at 20:30 Acetaminophen (Tylenol Tab) 650 mg Q4H PRN PO PAIN; Start 08/29/18 at 20:30 Ondansetron HCl (Zofran Inj) 4 mg Q6H PRN IV NAUSEA AND/OR VOMITING; Start 08/29/18 at 22:00 Spironolactone (Aldactone) 25 mg DAILY PO Last administered on 09/02/18at 08:07; Admin Dose 25 MG; Start 08/30/18 at 09:00 Zolpidem Tartrate (Ambien) 5 mg HS PRN PO INSOMNIA Last administered on 08/30/18at 20:59; Admin Dose 5 MG; Start 08/29/18 at 22:00 Carvedilol (Coreg) 12.5 mg BID PO Last administered on 09/02/18at 08:06; Admin Dose 12.5 MG; Start 08/29/18 at 23:00 Digoxin (Digoxin) 0.25 mg DAILY@13 PO Last administered on 09/01/18 13:17; Admin Dose 0.25 MG; Start 08/30/18 at 13:00 Potassium Chloride (Klor-Con 20) 20 meq DAILY PO Last administered on 09/02/18 08:05; Admin Dose 20 MEQ; Start 08/30/18 at 09:00 Furosemide (Lasix) 20 mg BID DIURETICS PO Last administered on 09/02/18 06:17; Admin Dose 20 MG; Start 08/30/18 at 06:00 Atorvastatin Calcium (Lipitor) 80 mg HS PO Last administered on 09/01/18 20:16; Admin Dose 80 MG; Start 08/29/18 at 22:00 Morphine Sulfate (morphine) 6 mg Q4H PRN PO SEVERE PAIN LEVEL 7-10; Start 08/29/18 at 22:00 Acetaminophen/ Hydrocodone Bitart ([place] (5/325)) 1 tab Q6H PRN PO MODERATE PAIN LEVEL 4-6; Start 08/29/18 at 22:00 Dabigatran (PRADaxa) 150 mg BID PO Last administered on 09/02/18 08:05; Admin Dose 150 MG; Start 08/29/18 at 23:30 Levothyroxine Sodium (Synthroid) 25 mcg AC BREAKFAST PO Last administered on 09/02/18 06:17; Admin Dose 25 MCG; Start 08/30/18 at 07:00 Lisinopril (Zestril) 2.5 mg DAILY PO Last administered on 09/02/18 08:07; Admin Dose 2.5 MG; Start 08/30/18 at 09:00 Allopurinol (Zyloprim) 300 mg DAILY PO Last administered on 09/02/18 08:05; Admin Dose 300 MG; Start 08/30/18 at 09:00 Assessment/Plan Additional Assessment/Plan Rehab- 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 Toleratingrehab program well. Patient with cognitive impairments and benefits from speech therapy Urinary tract infection. History of CHF. History of AICD. Hypothyroidism. Hypertension. TATUM TRACEY MD Sep 02, 2018 09:40
--- NOTE | 2018-09-02 10:13 | PN ---
Date/Time of Note Date/Time of Note DATE: 09/02/18 TIME: 10:11 Assessment/Plan VTE Prophylaxis Risk score (from Ns)>0 risk: 4 SCD applied (from Ns): Yes Pharmacological prophylaxis: other (pradaxa) Lines/Catheters IV [facility]from [facility] Urinary Cath still in place: No Assessment/Plan Hospital Course SUBJECTIVE: Sitting up in chair. No acute distress. OBJECTIVE: Vital signs-see below PHYSICAL EXAM: Constitutional: Well-developed, adequately built, lying in bed comfortably. Psych: nl mood/affect, no complaints Head: atraumatic, normocephalic Eyes: nl conjunctiva, nl sclera ENMT: mucosa pink and moist, nl external ears & nose Neck: non-tender, supple Respiratory: clear to auscultation, normal air movement Cardiovascular: nl pulses, regular rate and rhythm Gastrointestinal: non-tender, soft, bowel sounds active in all 4 quadrants. Musculoskeletal/extremities: Mild weakness to bilateral upper and lower extremities. Nl extremities to inspection, motor strength 4/5 bilaterally, no focal deficit. Normal pulses,no cyanosis, no edema. Neurological: Alert oriented 3,nl speech, nl strength Skin: nl turgor ASSESSMENT/PLAN: 1. CVA.CT head shows a subacute infarct within the left posterior cerebral artery territory,MRI unable to be done secondary to history of AICD -Pradaxa and statin -Continue rehab 2. S/P UTI/Sepsis -ABX course completed. 3.chronic CHF status post AICD. TTE with EF 45%. Patient euvolemic Continue diuretics, NICHOLAS inhibitors, beta-blockers, Aldactone 4. Hypothyroidism on Synthroid 5. Hypertension Stable Continue antihypertensives. Prophylaxis: Pradaxa Patient was seen in collaboration with Result Diagram: 08/30/18 0638 08/30/18 0638 Exam/Review of Systems Vital Signs Vitals Vital Signs Date Temp Pulse Resp B/P (MAP) Pulse Ox O2 O2 Flow FiO2 Time Delivery Rate 09/02/18 98.8 68 17 112/60 94 Room Air 07:25 (77) Intake and Output 09/01/18 09/01/18 09/02/18 1515:00 23:00 07:00 IntakeIntake Total 800 ml 740 ml OutputOutput Total 400 ml 100 ml 280 ml BalanceBalance 400 ml 640 ml -280 ml Medications Medications Current Medications Docusate Sodium (Colace) 100 mg BID PO ; Start 08/29/18 at 21:00; Status Hold Senna (Senokot) 1 tab HS PO ; Start 08/29/18 at 21:00; Status Hold Magnesium Hydroxide (Milk Of Mag) 30 ml BID PRN PO CONSTIPATION; Start 08/29/18 at 20:30 Lactulose (Enulose) 20 gm DAILY PRN PO CONSTIPATION; Start 08/29/18 at 20:30 Bisacodyl (Dulcolax Supp) 10 mg DAILY PRN [place] CONSTIPATION; Start 08/29/18 at 20:30 Acetaminophen (Tylenol Tab) 650 mg Q4H PRN PO PAIN; Start 08/29/18 at 20:30 Ondansetron HCl (Zofran Inj) 4 mg Q6H PRN IV NAUSEA AND/OR VOMITING; Start 08/29/18 at 22:00 Spironolactone (Aldactone) 25 mg DAILY PO Last administered on 09/02/18at 08:07; Admin Dose 25 MG; Start 08/30/18 at 09:00 Zolpidem Tartrate (Ambien) 5 mg HS PRN PO INSOMNIA Last administered on 08/30/18at 20:59; Admin Dose 5 MG; Start 08/29/18 at 22:00 Carvedilol (Coreg) 12.5 mg BID PO Last administered on 09/02/18at 08:06; Admin Dose 12.5 MG; Start 08/29/18 at 23:00 Digoxin (Digoxin) 0.25 mg DAILY@13 PO Last administered on 09/01/18at 13:17; Admin Dose 0.25 MG; Start 08/30/18 at 13:00 Potassium Chloride (Klor-Con 20) 20 meq DAILY PO Last administered on 09/02/18at 08:05; Admin Dose 20 MEQ; Start 08/30/18 at 09:00 Furosemide (Lasix) 20 mg BID DIURETICS PO Last administered on 09/02/18at 06:17; Admin Dose 20 MG; Start 08/30/18 at 06:00 Atorvastatin Calcium (Lipitor) 80 mg HS PO Last administered on 09/01/18at 20:16; Admin Dose 80 MG; Start 08/29/18 at 22:00 Morphine Sulfate (morphine) 6 mg Q4H PRN PO SEVERE PAIN LEVEL 7-10; Start 08/29/18 at 22:00 Acetaminophen/ Hydrocodone Bitart ([place] (5/325)) 1 tab Q6H PRN PO MODERATE PAIN LEVEL 4-6; Start 08/29/18 at 22:00 Dabigatran (PRADaxa) 150 mg BID PO Last administered on 09/02/18 08:05; Admin Dose 150 MG; Start 08/29/18 at 23:30 Levothyroxine Sodium (Synthroid) 25 mcg AC BREAKFAST PO Last administered on 09/02/18at 06:17; Admin Dose 25 MCG; Start 08/30/18 at 07:00 Lisinopril (Zestril) 2.5 mg DAILY PO Last administered on 09/02/18 08:07; Admin Dose 2.5 MG; Start 08/30/18 at 09:00 Allopurinol (Zyloprim) 300 mg DAILY PO Last administered on 09/02/18at 08:05; Admin Dose 300 MG; Start 08/30/18 at 09:00 RITA SUGGS NP Sep 02, 2018 10:13
[2018-09-02] MEDS: DIGOXIN 0.25 MG TAB PO SCH (12:00)
[2018-09-02 14:20] VITALS: BP 98/46; PULSE 63; RESP 16
--- NOTE | 2018-09-02 18:37 | NUR ---
End of shift summary note Patient alert and able to make needs without complaints of pain this time. All due medications given. Recreational activity provided like watching TV. Encouraged to increase fluid intake. Call light and bedside table placed within reach. Bed alarm activated and bed placed on lowest position for safety. Needs attended and anticipated. Will endorse to next shift.
[2018-09-02 20:00] VITALS: BP 122/62; PULSE 73; RESP 16
[2018-09-02] MEDS: ATORVASTATIN 80 MG TAB PO SCH (20:13)
[2018-09-03 02:00] VITALS: BP 98/54; PULSE 65; RESP 16
[2018-09-03] MEDS: FUROSEMIDE 20 MG TAB PO SCH ×2 (06:00→17:15)
--- NOTE | 2018-09-03 06:10 | NUR ---
PATIENT SLEPT WELL. NO C/O PAIN OR DISCOMFORT. RECREATIONAL ACTIVITIES PROVIDED TO PATIENT;TV. CALL LIGHT WITHIN REACH
[2018-09-03] MEDS: LEVOTHYROXINE 25 MCG TAB PO SCH (06:24)
[2018-09-03 07:30] VITALS: BP 127/58; PULSE 62; RESP 16
[2018-09-03] MEDS: SPIRONOLACTONE 25 MG TAB PO SCH (07:37)
[2018-09-03] MEDS: ALLOPURINOL 300 MG TAB PO SCH (07:37)
[2018-09-03] MEDS: POTASSIUM CHLORIDE (SR) 20 MEQ TAB PO SCH (07:37)
[2018-09-03] MEDS: DABIGATRAN 150 MG CAP PO SCH ×2 (07:38→20:09)
[2018-09-03] MEDS: LISINOPRIL 5 MG TAB PO SCH (07:38)
--- NOTE | 2018-09-03 10:04 | PN ---
Date/Time of Note Date/Time of Note DATE: 09/03/18 TIME: 10:03 Subjective Comfortable, denies complaints Objective Vital Signs Date Temp Pulse Resp B/P (MAP) Pulse Ox O2 O2 Flow FiO2 Time Delivery Rate 09/03/18 98.1 62 16 127/58 95 Room Air 07:30 (81) Intake and Output 09/02/18 09/02/18 09/03/18 1515:00 23:00 07:00 IntakeIntake Total 440 ml 480 ml 100 ml OutputOutput Total 240 ml 400 ml 360 ml BalanceBalance 200 ml 80 ml -260 ml Exam pulm-cta abd-soft min assist ambulation Results/Medications Result Diagram: 08/30/1863708/30/18637 Medications Current Medications Docusate Sodium (Colace) 100 mg BID PO ; Start 08/29/18 at 21:00; Status Hold Senna (Senokot) 1 tab HS PO ; Start 08/29/18 at 21:00; Status Hold Magnesium Hydroxide (Milk Of Mag) 30 ml BID PRN PO CONSTIPATION; Start 08/29/18 at 20:30 Lactulose (Enulose) 20 gm DAILY PRN PO CONSTIPATION; Start 08/29/18 at 20:30 Bisacodyl (Dulcolax Supp) 10 mg DAILY PRN [place] CONSTIPATION; Start 08/29/18 at 20:30 Acetaminophen (Tylenol Tab) 650 mg Q4H PRN PO PAIN; Start 08/29/18 at 20:30 Ondansetron HCl (Zofran Inj) 4 mg Q6H PRN IV NAUSEA AND/OR VOMITING; Start 08/29/18 at 22:00 Spironolactone (Aldactone) 25 mg DAILY PO Last administered on 09/03/18at 07:37; Admin Dose 25 MG; Start 08/30/18 at 09:00 Zolpidem Tartrate (Ambien) 5 mg HS PRN PO INSOMNIA Last administered on 08/30/18at 20:59; Admin Dose 5 MG; Start 08/29/18 at 22:00 Carvedilol (Coreg) 12.5 mg BID PO Last administered on 09/03/18at 07:37; Admin Dose 12.5 MG; Start 08/29/18 at 23:00 Digoxin (Digoxin) 0.25 mg DAILY@13 PO Last administered on 09/02/18 12:00; Admin Dose 0.25 MG; Start 08/30/18 at 13:00 Potassium Chloride (Klor-Con 20) 20 meq DAILY PO Last administered on 09/03/18 07:37; Admin Dose 20 MEQ; Start 08/30/18 at 09:00 Furosemide (Lasix) 20 mg BID DIURETICS PO Last administered on 09/02/18 17:13; Admin Dose 20 MG; Start 08/30/18 at 06:00 Atorvastatin Calcium (Lipitor) 80 mg HS PO Last administered on 09/02/18 20:13; Admin Dose 80 MG; Start 08/29/18 at 22:00 Morphine Sulfate (morphine) 6 mg Q4H PRN PO SEVERE PAIN LEVEL 7-10; Start 08/29/18 at 22:00 Acetaminophen/ Hydrocodone Bitart ([place] (5/325)) 1 tab Q6H PRN PO MODERATE PAIN LEVEL 4-6; Start 08/29/18 at 22:00 Dabigatran (PRADaxa) 150 mg BID PO Last administered on 09/03/18 07:38; Admin Dose 150 MG; Start 08/29/18 at 23:30 Levothyroxine Sodium (Synthroid) 25 mcg AC BREAKFAST PO Last administered on 09/03/18 06:24; Admin Dose 25 MCG; Start 08/30/18 at 07:00 Lisinopril (Zestril) 2.5 mg DAILY PO Last administered on 09/03/18 07:38; Admin Dose 2.5 MG; Start 08/30/18 at 09:00 Allopurinol (Zyloprim) 300 mg DAILY PO Last administered on 09/03/18 07:37; Admin Dose 300 MG; Start 08/30/18 at 09:00 Assessment/Plan Additional Assessment/Plan Rehab- 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 He has been making steady progress, but does have difficulty with some cognitive functional carryover. Continue treatmnet plan. Urinary tract infection. History of CHF. History of AICD. Hypothyroidism. Hypertension. TATUM TRACEY MD Sep 03, 2018 10:04
--- NOTE | 2018-09-03 12:13 | PN ---
Date/Time of Note Date/Time of Note DATE: 09/03/18 TIME: 12:12 Assessment/Plan VTE Prophylaxis Risk score (from Ns)>0 risk: 4 SCD applied (from Ns): Yes Pharmacological prophylaxis: other (pradaxa) Lines/Catheters IV [facility]from [facility] Urinary Cath still in place: No Assessment/Plan Hospital Course SUBJECTIVE: Sitting up in chair. No acute distress. OBJECTIVE: Vital signs-see below PHYSICAL EXAM: Constitutional: Well-developed, adequately built, lying in bed comfortably. Psych: nl mood/affect, no complaints Head: atraumatic, normocephalic Eyes: nl conjunctiva, nl sclera ENMT: mucosa pink and moist, nl external ears & nose Neck: non-tender, supple Respiratory: clear to auscultation, normal air movement Cardiovascular: nl pulses, regular rate and rhythm Gastrointestinal: non-tender, soft, bowel sounds active in all 4 quadrants. Musculoskeletal/extremities: Mild weakness to bilateral upper and lower extremities. Nl extremities to inspection, motor strength 4/5 bilaterally, no focal deficit. Normal pulses,no cyanosis, no edema. Neurological: Alert oriented 3,nl speech, nl strength Skin: nl turgor ASSESSMENT/PLAN: 1. CVA.CT head shows a subacute infarct within the left posterior cerebral artery territory,MRI unable to be done secondary to history of AICD -Pradaxa and statin -Continue rehab 2. S/P UTI/Sepsis -ABX course completed. 3.chronic CHF status post AICD. TTE with EF 45%. Patient euvolemic Continue diuretics, NICHOLAS inhibitors, beta-blockers, Aldactone 4. Hypothyroidism on Synthroid 5. Hypertension Stable Continue antihypertensives. Prophylaxis: Pradaxa Patient was seen in collaboration with Result Diagram: 08/30/18 0638 08/30/18 0638 Exam/Review of Systems Vital Signs Vitals Vital Signs Date Temp Pulse Resp B/P (MAP) Pulse Ox O2 O2 Flow FiO2 Time Delivery Rate 09/03/18 98.1 62 16 127/58 95 Room Air 07:30 (81) Intake and Output 09/02/18 09/02/18 09/03/18 1515:00 23:00 07:00 IntakeIntake Total 440 ml 480 ml 100 ml OutputOutput Total 240 ml 400 ml 360 ml BalanceBalance 200 ml 80 ml -260 ml Medications Medications Current Medications Docusate Sodium (Colace) 100 mg BID PO ; Start 08/29/18 at 21:00; Status Hold Senna (Senokot) 1 tab HS PO ; Start 08/29/18 at 21:00; Status Hold Magnesium Hydroxide (Milk Of Mag) 30 ml BID PRN PO CONSTIPATION; Start 08/29/18 at 20:30 Lactulose (Enulose) 20 gm DAILY PRN PO CONSTIPATION; Start 08/29/18 at 20:30 Bisacodyl (Dulcolax Supp) 10 mg DAILY PRN [place] CONSTIPATION; Start 08/29/18 at 20:30 Acetaminophen (Tylenol Tab) 650 mg Q4H PRN PO PAIN; Start 08/29/18 at 20:30 Ondansetron HCl (Zofran Inj) 4 mg Q6H PRN IV NAUSEA AND/OR VOMITING; Start 08/29/18 at 22:00 Spironolactone (Aldactone) 25 mg DAILY PO Last administered on 09/03/18at 07:37; Admin Dose 25 MG; Start 08/30/18 at 09:00 Zolpidem Tartrate (Ambien) 5 mg HS PRN PO INSOMNIA Last administered on 08/30/18at 20:59; Admin Dose 5 MG; Start 08/29/18 at 22:00 Carvedilol (Coreg) 12.5 mg BID PO Last administered on 09/03/18at 07:37; Admin Dose 12.5 MG; Start 08/29/18 at 23:00 Digoxin (Digoxin) 0.25 mg DAILY@13 PO Last administered on 09/02/18at 12:00; Admin Dose 0.25 MG; Start 08/30/18 at 13:00 Potassium Chloride (Klor-Con 20) 20 meq DAILY PO Last administered on 09/03/18at 07:37; Admin Dose 20 MEQ; Start 08/30/18 at 09:00 Furosemide (Lasix) 20 mg BID DIURETICS PO Last administered on 09/02/18at 17:13; Admin Dose 20 MG; Start 08/30/18 at 06:00 Atorvastatin Calcium (Lipitor) 80 mg HS PO Last administered on 09/02/18at 20:13; Admin Dose 80 MG; Start 08/29/18 at 22:00 Morphine Sulfate (morphine) 6 mg Q4H PRN PO SEVERE PAIN LEVEL 7-10; Start 08/29/18 at 22:00 Acetaminophen/ Hydrocodone Bitart ([place] (5/325)) 1 tab Q6H PRN PO MODERATE PAIN LEVEL 4-6; Start 08/29/18 at 22:00 Dabigatran (PRADaxa) 150 mg BID PO Last administered on 09/03/18at 07:38; Admin Dose 150 MG; Start 08/29/18 at 23:30 Levothyroxine Sodium (Synthroid) 25 mcg AC BREAKFAST PO Last administered on 09/03/18at 06:24; Admin Dose 25 MCG; Start 08/30/18 at 07:00 Lisinopril (Zestril) 2.5 mg DAILY PO Last administered on 09/03/18at 07:38; Admin Dose 2.5 MG; Start 08/30/18 at 09:00 Allopurinol (Zyloprim) 300 mg DAILY PO Last administered on 09/03/18at 07:37; Admin Dose 300 MG; Start 08/30/18 at 09:00 RITA SUGGS NP Sep 03, 2018 12:13
[2018-09-03] MEDS: DIGOXIN 0.25 MG TAB PO SCH ×2 (13:00→15:55)
[2018-09-03 13:15] VITALS: BP 109/59; PULSE 58; RESP 18
--- NOTE | 2018-09-03 15:16 | CONS ---
Assessment/Plan Assessment/Plan Hospital Course A: 83 M c/ multiple comorbidities, including afib and cardiomyopathy s/p AICD...now in [facility] for acute rehab. CT head was notable for a subacute posterior circulation infarction...for which neurology is consulted... CTA is without evidence of multifocal stenoses.. Echo demonstrates mild LV systolic dysfunction and an EF of 45%, but is otherwise unrevealing P: OK to continue Pradaxa for now given subacute appearance of infarction.. 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 No acute events reported. Pt is without complaints at this time. Exam Vital Signs Vitals Vital Signs Date Temp Pulse Resp B/P (MAP) Pulse Ox O2 O2 Flow FiO2 Time Delivery Rate 09/03/18 98.0 58 18 109/59 96 Room Air 13:15 (76) Intake and Output 09/02/18 09/02/18 09/03/18 1515:00 23:00 07:00 IntakeIntake Total 440 ml 480 ml 100 ml OutputOutput Total 240 ml 400 ml 360 ml BalanceBalance 200 ml 80 ml -260 ml Exam PE: Gen Appearance: No Apparent Distress HEENT: Normocephalic Cardiovascular: Regular rate Lungs: Clear bilaterally Abdomen: Soft Extremities: Dry NE: The patient was alert and oriented to person, hospital, month, and year.... Language was normal. Fund of knowledge was adequate. Pupils were equal and reactive to light. There was no afferent pupillary defect. Peripheral/lateral visual dunlap were diminished in R eye. Funduscopic examination was limited. Extra-ocular movements were full. Ptosis was absent. There was no nystagmus. Facial sensation was normal. Face was symmetric with normal strength. Hearing was intact. Palate movements were normal. Neck strength was normal. There was normal tongue bulk and speed of movement. Tone was normal. Muscle bulk was normal. I did not see fasciculations. Arms and legs were strong. Vibration sensation was normal. Temperature and pinprick sensation was normal. Rapid alternating movements were normal. There was no dysmetria. There was no intention tremor. Gait was cautious.. Arm and leg reflexes were symmetric. Baker's sign was absent. Plantar responses were flexor. GIOVANNI LLAMAS NP Sep 03, 2018 15:16 GABINO STANFORD Sep 04, 2018 06:02
--- NOTE | 2018-09-03 18:17 | NUR ---
Pt participated in therapies. Needs to be reminded of task at hand for safety. VSS. at bedside tonight; provided support. Continue use of bed alarm for safety.
[2018-09-03 19:55] VITALS: BP 113/72; PULSE 64; RESP 18
[2018-09-03] MEDS: ATORVASTATIN 80 MG TAB PO SCH (20:08)
--- NOTE | 2018-09-03 20:46 | CONS ---
DATE OF ADMISSION: 08/29/2018 DATE OF CONSULTATION: 09/03/2018 TYPE OF CONSULTATION: Psychological REFERRING PHYSICIAN: Tatum Larios MD CONSULTING PSYCHOLOGIST: Elvira Booth, PhD REASON FOR CONSULTATION: This consultation was requested by Dr. Larios in order to evaluate the cognitive and emotional functioning of this patient related to his present medical condition. HISTORY OF PRESENT ILLNESS: The patient is an 83-year-old male. The patient was admitted with a recent stroke. The patient was cleared medically and sent to the acute rehabilitation unit for acute multidisciplinary rehabilitation. The patient is Slovenian speaking and even though this oracle application consultant speaks some Slovenian, this consultation was done with the assistance of Rosa from the translation service for the hospital because of the patient's level of confusion. It was needed to make sure that everything was as clear as it could be. The patient was very confused and had difficulty even answering questions presented to him by the parasitology teacher. The patient is motivated to get better and does want to leave the hospital as soon as possible. FAMILY AND SOCIAL HISTORY: The information says that the patient lives with the family and hopes to return there upon discharge. The patient does live in an apartment with stairs. The patient himself could not tell me where he lives. MEDICATIONS: The patient is currently not on any psychotropic medication. SUBSTANCE USE: The patient does deny any use of alcohol or other drugs. The patient reports he does not smoke. MENTAL STATUS EXAMINATION: APPEARANCE: The patient was seen in bed. He appeared to be of average height and weight. He is right-handed. BEHAVIOR: The patient was cooperative during the consultation. He did try to answer all questions presented to him by the interviewer, but the patient was confused and had difficulty with questions provided by the parasitology teacher or the interviewer as well. MOOD AND AFFECT: The patient's mood appears to be somewhat depressed. Affect does appear to be somewhat anxious. PERCEPTION: The patient reports no hallucinations or delusions. The patient was not alert to person, place, situation and time. MEMORY AND COGNITION: The patient's memory and cognition appear to be significantly impaired at this time. He was not able to say the name of the hospital. The patient was unable to say where he lives. The patient was able to say the month and the year. The patient could not do any serial 7 subtractions from 100. Overall, the patient's cognition appears to be presently impaired, likely resulting from his recent stroke. INTELLIGENCE: Intelligence would appear to fall probably in the average range when he was functioning well. INSIGHT: Poor. JUDGMENT: Poor. THOUGHT CONTENT: The patient is concerned about his present medical condition. The patient is very confused and having difficulty understanding what is happening to him at the present time. All he could say during the interview was that he was confused and that he could not work his phone. DISCUSSION: The patient may be able to benefit from some cognitive/behavioral psychotherapy while he is on the unit as he starts to clear. If the patient is still on the unit when this interviewer returns, a followup session will be attempted. At this point, even trying to work on his memory is not going to be effective at the present time. DIAGNOSTIC IMPRESSION: 1. 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 2. 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 Thank you very much, Dr. Larios, for referring this individual. Please do not hesitate to call if you have additional questions. Dictated By: ELVIRA BOOTH PHD RK/MALIKA Conf#: [id number] DID#: [id number] CC: TATUM TRACEY MD;*EndCC* MTDD
--- NOTE | 2018-09-04 06:15 | NUR ---
Pt resting in bed with eyes close. No acute distress noted. No complaints of pain or discomfort during my shift. Pt remains stable and vitals noted WNL.All due medications given and all needs attended. Hourly roundings done. Bed alarm activated. Both side rails up. Call light within pt's reach.
[2018-09-04] MEDS: LEVOTHYROXINE 25 MCG TAB PO SCH (06:37)
[2018-09-04] MEDS: FUROSEMIDE 20 MG TAB PO SCH ×2 (06:38→18:27)
[2018-09-04 07:59] VITALS: BP 128/57; PULSE 89; RESP 18
[2018-09-04] MEDS: DABIGATRAN 150 MG CAP PO SCH ×2 (08:06→20:15)
[2018-09-04] MEDS: LISINOPRIL 5 MG TAB PO SCH (08:07)
[2018-09-04] MEDS: POTASSIUM CHLORIDE (SR) 20 MEQ TAB PO SCH (08:07)
[2018-09-04] MEDS: ALLOPURINOL 300 MG TAB PO SCH (08:07)
[2018-09-04] MEDS: SPIRONOLACTONE 25 MG TAB PO SCH (08:07)
[2018-09-04] MEDS: DIGOXIN 0.25 MG TAB PO SCH (12:49)
[2018-09-04 12:50] VITALS: PULSE 57
[2018-09-04 14:00] VITALS: BP 99/64; PULSE 60; RESP 18
--- NOTE | 2018-09-04 14:13 | PN ---
Date/Time of Note Date/Time of Note DATE: 09/04/18 TIME: 14:12 Assessment/Plan VTE Prophylaxis Risk score (from Ns)>0 risk: 4 SCD applied (from Ns): Yes Pharmacological prophylaxis: other (PRADAXA) Lines/Catheters IV [facility] Type [facility]from [email or web address] Saline Lock Urinary Cath still in place: No Assessment/Plan Hospital Course SUBJECTIVE: Sitting up in chair. No acute distress. OBJECTIVE: Vital signs-see below PHYSICAL EXAM: Constitutional: Well-developed, adequately built, lying in bed comfortably. Psych: nl mood/affect, no complaints Head: atraumatic, normocephalic Eyes: nl conjunctiva, nl sclera ENMT: mucosa pink and moist, nl external ears & nose Neck: non-tender, supple Respiratory: clear to auscultation, normal air movement Cardiovascular: nl pulses, regular rate and rhythm Gastrointestinal: non-tender, soft, bowel sounds active in all 4 quadrants. Musculoskeletal/extremities: Mild weakness to bilateral upper and lower extremities. Nl extremities to inspection, motor strength 4/5 bilaterally, no focal deficit. Normal pulses,no cyanosis, no edema. Neurological: Alert oriented 3,nl speech, nl strength Skin: nl turgor ASSESSMENT/PLAN: 1. CVA.CT head shows a subacute infarct within the left posterior cerebral artery territory,MRI unable to be done secondary to history of AICD -Pradaxa and statin -Continue rehab 2. S/P UTI/Sepsis -ABX course completed. 3.chronic CHF status post AICD. TTE with EF 45%. Patient euvolemic Continue diuretics, NICHOLAS inhibitors, beta-blockers, Aldactone 4. Hypothyroidism on Synthroid 5. Hypertension Stable Continue antihypertensives. Prophylaxis: Pradaxa Patient was seen in collaboration with Exam/Review of Systems Vital Signs Vitals Vital Signs Date Temp Pulse Resp B/P (MAP) Pulse Ox O2 O2 Flow FiO2 Time Delivery Rate 09/04/18 57 12:50 09/04/18 97.8 18 128/57 96 Room Air 07:59 (80) Intake and Output 09/03/18 09/03/18 09/04/18 1515:00 23:00 07:00 IntakeIntake Total 400 ml OutputOutput Total 300 ml 300 ml BalanceBalance 100 ml -300 ml Medications Medications Current Medications Docusate Sodium (Colace) 100 mg BID PO ; Start 08/29/18 at 21:00; Status Hold Senna (Senokot) 1 tab HS PO ; Start 08/29/18 at 21:00; Status Hold Magnesium Hydroxide (Milk Of Mag) 30 ml BID PRN PO CONSTIPATION; Start 08/29/18 at 20:30 Lactulose (Enulose) 20 gm DAILY PRN PO CONSTIPATION; Start 08/29/18 at 20:30 Bisacodyl (Dulcolax Supp) 10 mg DAILY PRN [place] CONSTIPATION; Start 08/29/18 at 20:30 Acetaminophen (Tylenol Tab) 650 mg Q4H PRN PO PAIN; Start 08/29/18 at 20:30 Ondansetron HCl (Zofran Inj) 4 mg Q6H PRN IV NAUSEA AND/OR VOMITING; Start 08/29/18 at 22:00 Spironolactone (Aldactone) 25 mg DAILY PO Last administered on 09/04/18at 08:07; Admin Dose 25 MG; Start 08/30/18 at 09:00 Zolpidem Tartrate (Ambien) 5 mg HS PRN PO INSOMNIA Last administered on 08/30/18at 20:59; Admin Dose 5 MG; Start 08/29/18 at 22:00 Carvedilol (Coreg) 12.5 mg BID PO Last administered on 09/04/18at 08:07; Admin Dose 12.5 MG; Start 08/29/18 at 23:00 Digoxin (Digoxin) 0.25 mg DAILY@13 PO Last administered on 09/03/18at 15:55; Admin Dose 0.25 MG; Start 08/30/18 at 13:00 Potassium Chloride (Klor-Con 20) 20 meq DAILY PO Last administered on 09/04/18at 08:07; Admin Dose 20 MEQ; Start 08/30/18 at 09:00 Furosemide (Lasix) 20 mg BID DIURETICS PO Last administered on 09/04/18at 06:38; Admin Dose 20 MG; Start 08/30/18 at 06:00 Atorvastatin Calcium (Lipitor) 80 mg HS PO Last administered on 09/03/18at 20:08; Admin Dose 80 MG; Start 08/29/18 at 22:00 Morphine Sulfate (morphine) 6 mg Q4H PRN PO SEVERE PAIN LEVEL 7-10; Start 08/29/18 at 22:00 Acetaminophen/ Hydrocodone Bitart ([place] (5/325)) 1 tab Q6H PRN PO MODERATE PAIN LEVEL 4-6; Start 08/29/18 at 22:00 Dabigatran (PRADaxa) 150 mg BID PO Last administered on 09/04/18 08:06; Admin Dose 150 MG; Start 08/29/18 at 23:30 Levothyroxine Sodium (Synthroid) 25 mcg AC BREAKFAST PO Last administered on 09/04/18at 06:37; Admin Dose 25 MCG; Start 08/30/18 at 07:00 Lisinopril (Zestril) 2.5 mg DAILY PO Last administered on 09/04/18 08:07; Admin Dose 2.5 MG; Start 08/30/18 at 09:00 Allopurinol (Zyloprim) 300 mg DAILY PO Last administered on 09/04/18 08:07; Admin Dose 300 MG; Start 08/30/18 at 09:00 RITA SUGGS NP Sep 04, 2018 14:13
--- NOTE | 2018-09-04 14:46 | CONS ---
Assessment/Plan Assessment/Plan Assessment/Plan A: 83 M c/ multiple comorbidities, including afib and cardiomyopathy s/p AICD...now in [facility] for acute rehab. CT head was notable for a subacute posterior circulation infarction...for which neurology is consulted... CTA is without evidence of multifocal stenoses.. Echo demonstrates mild LV systolic dysfunction and an EF of 45%, but is otherwise unrevealing P: OK to continue Pradaxa for now given subacute appearance of infarction.. Agree w/ lipitor daily (goal LDL <70) BP, glucose control and other medical management per primary PT/OT/ST per central office equipment installer Will follow clinically Consultation Date/Type/Reason Admit Date/Time Aug 29, 2018 at 18:59 Type of Consult Neurology Requesting Provider: ROSA MAN Date/Time of Note DATE: 09/04/18 TIME: 14:46 24 HR Interval Summary Free Text/Dictation Continues VR. No acute events reported. Pt states that his therapy is going well. Exam Vital Signs Vitals Vital Signs Date Temp Pulse Resp B/P (MAP) Pulse Ox O2 O2 Flow FiO2 Time Delivery Rate 09/04/18 97.6 60 18 99/64 (76) 96 Room Air 14:00 Intake and Output 09/03/18 09/03/18 09/04/18 1414:59 22:59 06:59 IntakeIntake Total 400 ml OutputOutput Total 300 ml 300 ml BalanceBalance 100 ml -300 ml Exam PE: Gen Appearance: No Apparent Distress HEENT: Normocephalic Cardiovascular: Regular rate Lungs: Clear bilaterally Abdomen: Soft Extremities: Dry NE: The patient was alert and oriented to person, hospital, month, and year.... Lang uage was normal. Fund of knowledge was adequate. Pupils were equal and reactive to light. There was no afferent pupillary defect. Peripheral/lateral visual dunlap were diminished in R eye. Funduscopic examination was limited. Extra-ocular movements were full. Ptosis was absent. There was no nystagmus. Facial sensation was normal. Face was symmetric with normal strength. Hearing was intact. Palate movements were normal. Neck strength was normal. There was normal tongue bulk and speed of movement. Tone was normal. Muscle bulk was normal. I did not see fasciculations. Arms and legs were strong. Vibration sensation was normal. Temperature and pinprick sensation was normal. Rapid alternating movements were normal. There was no dysmetria. There was no intention tremor. Gait was cautious.. Arm and leg reflexes were symmetric. Baker's sign was absent. Plantar responses were flexor. GIOVANNI LLAMAS NP Sep 04, 2018 14:46 GABINO STANFORD Sep 05, 2018 06:20
--- NOTE | 2018-09-04 17:28 | NUR ---
Patient is alert and breathing even. no SOB. no c/o pain. patient is ambulatory with assistive device. tolerated well. meds and diet given as ordered. patient with episode of getting up unassisted. speak to in a calm manner and reminded patient to call when needed help. Applied ABD binder to patient when OOB.
[2018-09-04 20:00] VITALS: BP 126/68; PULSE 62; RESP 18
[2018-09-04] MEDS: ATORVASTATIN 80 MG TAB PO SCH (20:15)
[2018-09-05 02:00] VITALS: BP 118/56; PULSE 64; RESP 18
[2018-09-05] MEDS: LEVOTHYROXINE 25 MCG TAB PO SCH (06:24)
[2018-09-05] MEDS: FUROSEMIDE 20 MG TAB PO SCH ×2 (06:24→18:34)
--- NOTE | 2018-09-05 06:31 | NUR ---
Pt slept well throughout the night. No acute distress noted. Pt is forgetful and impulsive, with episode of getting up in bed unassisted. No complaints of pain or discomfort during my shift. Pt remains stable and vitals noted WNL. Pt continent both bowel and bladder and goes to the toilet using FWW. All due medications given and all needs attended. Hourly roundings done. Bed alarm activated. Both side rails up. Call light within pt's reach.
[2018-09-05] MEDS: ALLOPURINOL 300 MG TAB PO SCH (08:13)
[2018-09-05] MEDS: POTASSIUM CHLORIDE (SR) 20 MEQ TAB PO SCH (08:13)
[2018-09-05] MEDS: SPIRONOLACTONE 25 MG TAB PO SCH (08:13)
[2018-09-05] MEDS: DABIGATRAN 150 MG CAP PO SCH ×2 (08:13→20:35)
[2018-09-05] MEDS: LISINOPRIL 5 MG TAB PO SCH (08:14)
[2018-09-05 08:18] VITALS: BP 112/67; PULSE 60; RESP 18
--- NOTE | 2018-09-05 11:39 | PN ---
Date/Time of Note Date/Time of Note DATE: 09/05/18 TIME: 11:38 Assessment/Plan VTE Prophylaxis Risk score (from Ns)>0 risk: 4 SCD applied (from Ns): Yes Pharmacological prophylaxis: other (pradaxa) Lines/Catheters IV [facility] Saline Lock Urinary Cath still in place: No Assessment/Plan Hospital Course SUBJECTIVE: Sitting up in chair. No acute distress. OBJECTIVE: Vital signs-see below PHYSICAL EXAM: Constitutional: Well-developed, adequately built, lying in bed comfortably. Psych: nl mood/affect, no complaints Head: atraumatic, normocephalic Eyes: nl conjunctiva, nl sclera ENMT: mucosa pink and moist, nl external ears & nose Neck: non-tender, supple Respiratory: clear to auscultation, normal air movement Cardiovascular: nl pulses, regular rate and rhythm Gastrointestinal: non-tender, soft, bowel sounds active in all 4 quadrants. Musculoskeletal/extremities: Mild weakness to bilateral upper and lower extremities. Nl extremities to inspection, motor strength 4/5 bilaterally, no focal deficit. Normal pulses,no cyanosis, no edema. Neurological: Alert oriented 3,nl speech, nl strength Skin: nl turgor ASSESSMENT/PLAN: 1. CVA.CT head shows a subacute infarct within the left posterior cerebral artery territory,MRI unable to be done secondary to history of AICD -Pradaxa and statin -Continue rehab 2. S/P UTI/Sepsis -ABX course completed. 3.chronic CHF status post AICD. TTE with EF 45%. Patient euvolemic Continue diuretics, NICHOLAS inhibitors, beta-blockers, Aldactone 4. Hypothyroidism on Synthroid 5. Hypertension Stable Continue antihypertensives. Prophylaxis: Pradaxa Patient was seen in collaboration with Exam/Review of Systems Vital Signs Vitals Vital Signs Date Temp Pulse Resp B/P (MAP) Pulse Ox O2 O2 Flow FiO2 Time Delivery Rate 09/05/18 98.6 60 18 112/67 97 Room Air 08:18 (82) Intake and Output 09/04/18 09/04/18 09/05/18 1515:00 23:00 07:00 IntakeIntake Total 720 ml OutputOutput Total 800 ml BalanceBalance 720 ml -800 ml Medications Medications Current Medications Docusate Sodium (Colace) 100 mg BID PO ; Start 08/29/18 at 21:00; Status Hold Senna (Senokot) 1 tab HS PO ; Start 08/29/18 at 21:00; Status Hold Magnesium Hydroxide (Milk Of Mag) 30 ml BID PRN PO CONSTIPATION; Start 08/29/18 at 20:30 Lactulose (Enulose) 20 gm DAILY PRN PO CONSTIPATION; Start 08/29/18 at 20:30 Bisacodyl (Dulcolax Supp) 10 mg DAILY PRN [place] CONSTIPATION; Start 08/29/18 at 20:30 Acetaminophen (Tylenol Tab) 650 mg Q4H PRN PO PAIN; Start 08/29/18 at 20:30 Ondansetron HCl (Zofran Inj) 4 mg Q6H PRN IV NAUSEA AND/OR VOMITING; Start 08/29/18 at 22:00 Spironolactone (Aldactone) 25 mg DAILY PO Last administered on 09/05/18at 08:13; Admin Dose 25 MG; Start 08/30/18 at 09:00 Zolpidem Tartrate (Ambien) 5 mg HS PRN PO INSOMNIA Last administered on at 20:59; Admin Dose 5 MG; Start 08/29/18 at 22:00 Carvedilol (Coreg) 12.5 mg BID PO Last administered on 09/05/18at 08:16; Admin Dose 12.5 MG; Start 08/29/18 at 23:00 Digoxin (Digoxin) 0.25 mg DAILY@13 PO Last administered on 09/03/18at 15:55; A dmin Dose 0.25 MG; Start 08/30/18 at 13:00 Potassium Chloride (Klor-Con 20) 20 meq DAILY PO Last administered on 09/05/18at 08:13; Admin Dose 20 MEQ; Start 08/30/18 at 09:00 Furosemide (Lasix) 20 mg BID DIURETICS PO Last administered on 09/05/18at 06: 24; Admin Dose 20 MG; Start 08/30/18 at 06:00 Atorvastatin Calcium (Lipitor) 80 mg HS PO Last administered on 09/04/18at 20:15; Admin Dose 80 MG; Start 08/29/18 at 22:00 Morphine Sulfate (morphine) 6 mg Q4H PRN PO SEVERE PAIN LEVEL 7-10; Start 08/29/18 at 22:00 Acetaminophen/ Hydrocodone Bitart ([place] (5/325)) 1 tab Q6H PRN PO MODERATE PAIN LEVEL 4-6; Start 08/29/18 at 22:00 Dabigatran (PRADaxa) 150 mg BID PO Last administered on 09/05/18 08:13; Admin Dose 150 MG; Start 08/29/18 at 23:30 Levothyroxine Sodium (Synthroid) 25 mcg AC BREAKFAST PO Last administered on 09/05/18at 06:24; Admin Dose 25 MCG; Start 08/30/18 at 07:00 Lisinopril (Zestril) 2.5 mg DAILY PO Last administered on 09/05/18at 08:14; Admin Dose 2.5 MG; Start 08/30/18 at 09:00 Allopurinol (Zyloprim) 300 mg DAILY PO Last administered on 09/05/18at 08:13; Admin Dose 300 MG; Start 08/30/18 at 09:00 RITA SUGGS NP Sep 05, 2018 11:39
[2018-09-05] MEDS: DIGOXIN 0.25 MG TAB PO SCH (13:00)
--- NOTE | 2018-09-05 13:50 | PN ---
Date/Time of Note Date/Time of Note DATE: 09/05/18 TIME: 13:49 Subjective He reports feeling much better Objective Vital Signs Date Temp Pulse Resp B/P (MAP) Pulse Ox O2 O2 Flow FiO2 Time Delivery Rate 09/05/18 98.6 60 18 112/67 97 Room Air 08:18 (82) Intake and Output 09/04/18 09/04/18 09/05/18 1515:00 23:00 07:00 IntakeIntake Total 720 ml OutputOutput Total 800 ml BalanceBalance 720 ml -800 ml Exam pulm-cta abd-soft sba transfer sba ambulation Results/Medications Medications Current Medications Docusate Sodium (Colace) 100 mg BID PO ; Start 08/29/18 at 21:00; Status Hold Senna (Senokot) 1 tab HS PO ; Start 08/29/18 at 21:00; Status Hold Magnesium Hydroxide (Milk Of Mag) 30 ml BID PRN PO CONSTIPATION; Start 08/29/18 at 20:30 Lactulose (Enulose) 20 gm DAILY PRN PO CONSTIPATION; Start 08/29/18 at 20:30 Bisacodyl (Dulcolax Supp) 10 mg DAILY PRN [place] CONSTIPATION; Start 08/29/18 at 20:30 Acetaminophen (Tylenol Tab) 650 mg Q4H PRN PO PAIN; Start 08/29/18 at 20:30 Ondansetron HCl (Zofran Inj) 4 mg Q6H PRN IV NAUSEA AND/OR VOMITING; Start 08/29/18 at 22:00 Spironolactone (Aldactone) 25 mg DAILY PO Last administered on 09/05/18at 08:13; Admin Dose 25 MG; Start 08/30/18 at 09:00 Zolpidem Tartrate (Ambien) 5 mg HS PRN PO INSOMNIA Last administered on 08/30/18at 20:59; Admin Dose 5 MG; Start 08/29/18 at 22:00 Carvedilol (Coreg) 12.5 mg BID PO Last administered on 09/05/18at 08:16; Admin Dose 12.5 MG; Start 08/29/18 at 23:00 Digoxin (Digoxin) 0.25 mg DAILY@13 PO Last administered on 09/03/18at 15:55; Admin Dose 0.25 MG; Start 08/30/18 at 13:00 Potassium Chloride (Klor-Con 20) 20 meq DAILY PO Last administered on 09/05/18 08:13; Admin Dose 20 MEQ; Start 08/30/18 at 09:00 Furosemide (Lasix) 20 mg BID DIURETICS PO Last administered on 09/05/18 06:24; Admin Dose 20 MG; Start 08/30/18 at 06:00 Atorvastatin Calcium (Lipitor) 80 mg HS PO Last administered on 09/04/18 20:15; Admin Dose 80 MG; Start 08/29/18 at 22:00 Morphine Sulfate (morphine) 6 mg Q4H PRN PO SEVERE PAIN LEVEL 7-10; Start 08/29/18 at 22:00 Acetaminophen/ Hydrocodone Bitart ([place] (5/325)) 1 tab Q6H PRN PO MODERATE PAIN LEVEL 4-6; Start 08/29/18 at 22:00 Dabigatran (PRADaxa) 150 mg BID PO Last administered on 09/05/18 08:13; Admin Dose 150 MG; Start 08/29/18 at 23:30 Levothyroxine Sodium (Synthroid) 25 mcg AC BREAKFAST PO Last administered on 09/05/18 06:24; Admin Dose 25 MCG; Start 08/30/18 at 07:00 Lisinopril (Zestril) 2.5 mg DAILY PO Last administered on 09/05/18 08:14; Admin Dose 2.5 MG; Start 08/30/18 at 09:00 Allopurinol (Zyloprim) 300 mg DAILY PO Last administered on 09/05/18 08:13; Admin Dose 300 MG; Start 08/30/18 at 09:00 Assessment/Plan Additional Assessment/Plan Rehab- Left posterior cerebral artery infarct CVA with left temporal lobe and left occipital lobe infarct and right-sided weakness. Overall excellent progress with rehab program. He remains motivated. Still with some cognitive impairments, but continues to improve cognitively also. History of CHF. History of AICD. Hypothyroidism. Hypertension. TATUM TRACEY MD Sep 05, 2018 13:50
[2018-09-05 14:00] VITALS: BP 102/65; PULSE 60; RESP 18
--- NOTE | 2018-09-05 15:09 | CONS ---
Assessment/Plan Assessment/Plan Hospital Course A: 83 M c/ multiple comorbidities, including afib and cardiomyopathy s/p AICD...now in [facility] for acute rehab. CT head was notable for a subacute posterior circulation infarction...for which neurology is consulted... CTA is without evidence of multifocal stenoses.. Echo demonstrates mild LV systolic dysfunction and an EF of 45%, but is otherwise unrevealing P: OK to continue Pradaxa for now given subacute appearance of infarction.. Agree w/ lipitor daily (goal LDL <70) BP, glucose control and other medical management per primary PT/OT/ST per counter stitcher Will follow clinically Consultation Date/Type/Reason Admit Date/Time Aug 29, 2018 at 18:59 Type of Consult Neurology Requesting Provider: ROSA MAN Date/Time of Note DATE: 09/05/18 TIME: 15:07 24 HR Interval Summary Free Text/Dictation Continues [facility]. Pt states that he feels like his strength is overall getting better. Exam Vital Signs Vitals Vital Signs Date Temp Pulse Resp B/P (MAP) Pulse Ox O2 O2 Flow FiO2 Time Delivery Rate 09/05/18 98.0 60 18 102/65 97 Room Air 14:00 (77) Intake and Output 09/04/18 09/04/18 09/05/18 1414:59 22:59 06:59 IntakeIntake Total 720 ml OutputOutput Total 800 ml BalanceBalance 720 ml -800 ml Exam PE: Gen Appearance: No Apparent Distress HEENT: Normocephalic Cardiovascular: Regular rate Lungs: Clear bilaterally Abdomen: Soft Extremities: Dry NE: The patient was alert and oriented to person, hospital, month, and year.... Language was normal. Fund of knowledge was adequate. Pupils were equal and reactive to light. There was no afferent pupillary defect. Peripheral/lateral visual dunlap were diminished in R eye. Funduscopic examination was limited. Extra-ocular movements were full. Ptosis was absent. There was no nystagmus. Facial sensation was normal. Face was symmetric with normal strength. Hearing was intact. Palate movements were normal. Neck strength was normal. There was normal tongue bulk and speed of movement. Tone was normal. Muscle bulk was normal. I did not see fasciculations. Arms and legs were strong. Vibration sensation was normal. Temperature and pinprick sensation was normal. Rapid alternating movements were normal. There was no dysmetria. There was no intention tremor. Gait was cautious.. Arm and leg reflexes were symmetric. Baker's sign was absent. Plantar responses were flexor. GIOVANNI LLAMAS NP Sep 05, 2018 15:09 GABINO STANFORD Sep 05, 2018 18:55
--- NOTE | 2018-09-05 17:23 | NUR ---
Patient is alert and breathing even. no SOB. no c/o pain. patient is cooperative during care. patient is ambulatory with assistive device. meds and diet given as ordered. no difficulty swallowing. lung sounds clear bilaterally. Reminded patient to call when needed help.
[2018-09-05 20:00] VITALS: BP 109/60; PULSE 62; RESP 18
[2018-09-05] MEDS: ATORVASTATIN 80 MG TAB PO SCH (20:35)
[2018-09-06 02:00] VITALS: BP 110/66; PULSE 60; RESP 16
--- NOTE | 2018-09-06 05:53 | NUR ---
Pt got admitted from [facility] on 09/05/18 around 5 hours. Around [address] Aviles exchange and left message regarding admission of the patient in the unit. Admission assessment done around 2200 hours. Pt was restless and anxious, try to pull out tracheostomy tube (capped) and G-tube and trying to get out of bed. Pt is Alert, awake to name only, confused most of the time, not able to follow direction and instruction. Pt's daughter Macey was at bedside till 2230 hours, then around 2300 hours pt's sister came to sit with patient, her sister was at bedside last night. Around 0100am, pt went to sleep. She slept on and off during night hours, no complaints noted, vital signs stable. Position turned Q2hrs as per pt's comfort. Gtube feeding Isosource HN @50ml/hr is started and free water 100 ml Q6hrs flushed via feeding pump. HOB elevated >30 degree while on G tubed feeding. Pt kept under aspiration, fall and seizure precaution. Incontinent for bladder and bowel, had BM last night changed and cleaned her. Hourly rounds done and patient care needs met. Bed alarm activated for safety, call light and bedside table within reach. Addendum: 09/06/18 at 0606 by CAROLEE LEGGETT RN This above notes belongs to different patient, please disregard the above notes.
--- NOTE | 2018-09-06 06:05 | NUR ---
Pt slept well during night hours, no complaints noted, vital signs stable. Able to turn position by self, continent for bladder and bowel, voids in the urinal, had BM last night. Hourly rounds done and patient care needs met. Bed alarm activated for safety, call light and bedside table within reach.
[2018-09-06] MEDS: LEVOTHYROXINE 25 MCG TAB PO SCH (06:22)
[2018-09-06] MEDS: FUROSEMIDE 20 MG TAB PO SCH ×2 (06:22→17:07)
[2018-09-06 08:00] VITALS: BP 107/53; PULSE 81; RESP 18
[2018-09-06] MEDS: DABIGATRAN 150 MG CAP PO SCH ×2 (09:16→20:51)
[2018-09-06] MEDS: ALLOPURINOL 300 MG TAB PO SCH (09:16)
[2018-09-06 09:20] VITALS: BP 98/62; PULSE 60; RESP 18
[2018-09-06 10:00] VITALS: BP 112/61; PULSE 66; RESP 18
--- NOTE | 2018-09-06 10:49 | PN ---
Date/Time of Note Date/Time of Note DATE: 09/06/18 TIME: 10:48 Subjective RN reports patient with poor po intake Objective Vital Signs Date Temp Pulse Resp B/P (MAP) Pulse Ox O2 O2 Flow FiO2 Time Delivery Rate 09/06/18 60 18 98/62 (74) 97 Room Air 09:20 09/06/18 98.0 08:00 Intake and Output 09/05/18 09/05/18 09/06/18 1515:00 23:00 07:00 IntakeIntake Total 720 ml 240 ml OutputOutput Total 750 ml BalanceBalance 720 ml -510 ml Exam pulm-cta abd-soft cga/sba ambulation Results/Medications Medications Current Medications Docusate Sodium (Colace) 100 mg BID PO ; Start 08/29/18 at 21:00; Status Hold Senna (Senokot) 1 tab HS PO ; Start 08/29/18 at 21:00; Status Hold Magnesium Hydroxide (Milk Of Mag) 30 ml BID PRN PO CONSTIPATION; Start 08/29/18 at 20:30 Lactulose (Enulose) 20 gm DAILY PRN PO CONSTIPATION; Start 08/29/18 at 20:30 Bisacodyl (Dulcolax Supp) 10 mg DAILY PRN [place] CONSTIPATION; Start 08/29/18 at 20:30 Acetaminophen (Tylenol Tab) 650 mg Q4H PRN PO PAIN; Start 08/29/18 at 20:30 Ondansetron HCl (Zofran Inj) 4 mg Q6H PRN IV NAUSEA AND/OR VOMITING; Start 08/29/18 at 22:00 Spironolactone (Aldactone) 25 mg DAILY PO Last administered on 09/05/18at 08:13 ; Admin Dose 25 MG; Start 08/30/18 at 09:00 Zolpidem Tartrate (Ambien) 5 mg HS PRN PO INSOMNIA Last administered on 08/30/18at 20:59; Admin Dose 5 MG; Start 08/29/18 at 22:00 Carvedilol (Coreg) 12.5 mg BID PO Last administered on 09/05/18at 20:36; Admin Dose 12.5 MG; Start 08/29/18 at 23:00 Digoxin (Digoxin) 0.25 mg DAILY@13 PO Last administered on 09/03/18at 15:55; Admin Dose 0.25 MG; Start 08/30/18 at 13:00 Potassium Chloride (Klor-Con 20) 20 meq DAILY PO Last administered on 09/05/18at 08:13; Admin Dose 20 MEQ; Start 08/30/18 at 09:00 Furosemide (Lasix) 20 mg BID DIURETICS PO Last administered on 09/06/18 06:22; Admin Dose 20 MG; Start 08/30/18 at 06:00 Atorvastatin Calcium (Lipitor) 80 mg HS PO Last administered on 09/05/18at 20:35; Admin Dose 80 MG; Start 08/29/18 at 22:00 Morphine Sulfate (morphine) 6 mg Q4H PRN PO SEVERE PAIN LEVEL 7-10; Start 08/29/18 at 22:00 Acetaminophen/ Hydrocodone Bitart ([place] (5/325)) 1 tab Q6H PRN PO MODERATE PAIN LEVEL 4-6; Start 08/29/18 at 22:00 Dabigatran (PRADaxa) 150 mg BID PO Last administered on 09/06/18at 09:16; Admin Dose 150 MG; Start 08/29/18 at 23:30 Levothyroxine Sodium (Synthroid) 25 mcg AC BREAKFAST PO Last administered on 09/06/18 06:22; Admin Dose 25 MCG; Start 08/30/18 at 07:00 Lisinopril (Zestril) 2.5 mg DAILY PO Last administered on 09/05/18at 08:14; Admin Dose 2.5 MG; Start 08/30/18 at 09:00 Allopurinol (Zyloprim) 300 mg DAILY PO Last administered on 09/06/18 09:16; Admin Dose 300 MG; Start 08/30/18 at 09:00 Assessment/Plan Additional Assessment/Plan Rehab- 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 Steady progress, continue treatment plan FEN- encourage PO intake. Nutritional supplement ordered History of CHF. History of AICD. Hypothyroidism. Hypertension. TATUM TRACEY MD Sep 06, 2018 10:49
[2018-09-06 13:43] VITALS: BP 113/58; PULSE 72; RESP 18
[2018-09-06] MEDS: SPIRONOLACTONE 25 MG TAB PO SCH (13:48)
[2018-09-06] MEDS: POTASSIUM CHLORIDE (SR) 20 MEQ TAB PO SCH (13:48)
[2018-09-06] MEDS: DIGOXIN 0.25 MG TAB PO SCH (13:49)
[2018-09-06] MEDS: LISINOPRIL 5 MG TAB PO SCH (13:49)
--- NOTE | 2018-09-06 15:28 | PN ---
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 Status: Acute Comment: Progressing with rehabilitation therapy (2) Essential hypertension Status: Chronic Comment: Adequate control using medicines beneficial for CHF (3) Hyperlipidemia Status: Chronic Comment: On statin therapy Qualifiers: Hyperlipidemia type: pure hypercholesterolemia Qualified Codes: E78.00 - Pure hypercholesterolemia, unspecified (4) Acquired hypothyroidism Status: Chronic Comment: On replacement therapy with normal TSH (5) Systolic CHF Status: Chronic Comment: Compensated on therapeutic Qualifiers: Heart failure chronicity: chronic Qualified Codes: I50.22 - Chronic systolic (congestive) heart failure (6) Atrial fibrillation, chronic Status: Chronic Comment: Rate controlled (7) AICD (automatic cardioverter/defibrillator) present Status: Chronic Comment: Noted. Subjective 24 Hr Interval Summary Free Text/Dictation Patient sleeping but easily awakened Constitutional: no complaints Respiratory: no complaints Cardiovascular: no complaints Exam/Review of Systems Vital Signs Vitals Vital Signs Date Temp Pulse Resp B/P (MAP) Pulse Ox O2 O2 Flow FiO2 Time Delivery Rate 09/06/18 97.5 72 18 113/58 97 Room Air 13:43 (76) Intake and Output 09/05/18 09/05/18 09/06/18 1515:00 23:00 07:00 IntakeIntake Total 720 ml 240 ml OutputOutput Total 750 ml BalanceBalance 720 ml -510 ml Exam Constitutional: alert Neck: supple, non-tender Respiratory: clear to auscultation, normal air movement Cardiovascular: nl pulses, irregular rhythm Medications Medications Current Medications Docusate Sodium (Colace) 100 mg BID PO ; Start 08/29/18 at 21:00; Status Hold Senna (Senokot) 1 tab HS PO ; Start 08/29/18 at 21:00; Status Hold Magnesium Hydroxide (Milk Of Mag) 30 ml BID PRN PO CONSTIPATION; Start 08/29/18 at 20:30 Lactulose (Enulose) 20 gm DAILY PRN PO CONSTIPATION; Start 08/29/18 at 20:30 Bisacodyl (Dulcolax Supp) 10 mg DAILY PRN [place] CONSTIPATION; Start 08/29/18 at 20:30 Acetaminophen (Tylenol Tab) 650 mg Q4H PRN PO PAIN; Start 08/29/18 at 20:30 Ondansetron HCl (Zofran Inj) 4 mg Q6H PRN IV NAUSEA AND/OR VOMITING; Start 08/29/18 at 22:00 Spironolactone (Aldactone) 25 mg DAILY PO Last administered on 09/06/18 13:48; Admin Dose 25 MG; Start 08/30/18 at 09:00 Zolpidem Tartrate (Ambien) 5 mg HS PRN PO INSOMNIA Last administered on 08/30/18 20:59; Admin Dose 5 MG; Start 08/29/18 at 22:00 Carvedilol (Coreg) 12.5 mg BID PO Last administered on 09/06/18 13:48; Admin Dose 12.5 MG; Start 08/29/18 at 23:00 Digoxin (Digoxin) 0.25 mg DAILY@13 PO Last administered on 09/06/18 13:49; Admin Dose 0.25 MG; Start 08/30/18 at 13:00 Potassium Chloride (Klor-Con 20) 20 meq DAILY PO Last administered on 09/06/18 13:48; Admin Dose 20 MEQ; Start 08/30/18 at 09:00 Furosemide (Lasix) 20 mg BID DIURETICS PO Last administered on 09/06/18 06:22; Admin Dose 20 MG; Start 08/30/18 at 06:00 Atorvastatin Calcium (Lipitor) 80 mg HS PO Last administered on 09/05/18at 20:35; Admin Dose 80 MG; Start 08/29/18 at 22:00 Morphine Sulfate (morphine) 6 mg Q4H PRN PO SEVERE PAIN LEVEL 7-10; Start 08/29/18 at 22:00 Acetaminophen/ Hydrocodone Bitart ([place] (5/325)) 1 tab Q6H PRN PO MODERATE PAIN LEVEL 4-6; Start 08/29/18 at 22:00 Dabigatran (PRADaxa) 150 mg BID PO Last administered on 09/06/18 09:16; Admin Dose 150 MG; Start 08/29/18 at 23:30 Levothyroxine Sodium (Synthroid) 25 mcg AC BREAKFAST PO Last administered on 09/06/18at 06:22; Admin Dose 25 MCG; Start 08/30/18 at 07:00 Lisinopril (Zestril) 2.5 mg DAILY PO Last administered on 09/06/18at 13:49; Admin Dose 2.5 MG; Start 08/30/18 at 09:00 Allopurinol (Zyloprim) 300 mg DAILY PO Last administered on 09/06/18at 09:16; Admin Dose 300 MG; Start 08/30/18 at 09:00 GUSTAVO TORIBIO MD Sep 06, 2018 15:28
[2018-09-06 20:00] VITALS: BP 104/62; PULSE 60; RESP 18
[2018-09-06] MEDS: ATORVASTATIN 80 MG TAB PO SCH (20:51)
--- NOTE | 2018-09-06 23:51 | NUR ---
[facility] RN Weekly Summary Dates From: 08/29/18 to 09/07/18 Patient Name: MIGUEL CACERES MR#: [id number] Height: 5 ft 4 in Weight: 154 lbs 5.177 oz 70.000 kg Reason for Visit: STROKE Precautions: Standard/fall/aspiration/pressure injury/VTE Date: 09/06/18 Time: 2351 User: MARIZAANDRZEJPABLITO BETSEY Short-term Goals: 1.Pt will be free from aspiration. 2.Pt will be free from fall or injury. 3.Pt's pain level will be controlled. 4.Pt will have regular pattern of bladder and bowel. 5.Pt's skin integrity will be maintained. Patient's progress:Good Short-term goals not met and reason/barriers: on going Bladder - level of function and accidents: 5 Bowel - level of function and accidents:6 Skin: Intact Status: Rectal redness Treatment: Changes: Pain: No Level: Location: Management: Changes: Functional levels: Self Care:4 Transfers:4 Locomotion:5 Assistance requirements: Communication:3 Social Cognition:4 Safety awareness: Yes, high risk for fall and aspiration, bed alarm activated for safety, call light within reach. Interdisciplinary interactions: Co-ordinating care with PT,OT,ST,SW,MD,RN Patient education:Given regarding medication, fall and aspiration precautions. Discharge needs: Plan to d/c on 09/12/17 Comorbid conditions: Acute metabolic encephalopathy secondary to UTI, CVA, CHF s/p AICD, hypothyroidism, HTN Plan of Care continuation: Yes, continue current POC.
[2018-09-07 02:00] VITALS: BP 109/64; PULSE 60; RESP 16
[2018-09-07] MEDS: FUROSEMIDE 20 MG TAB PO SCH ×2 (06:15→18:21)
[2018-09-07] MEDS: LEVOTHYROXINE 25 MCG TAB PO SCH (06:15)
--- NOTE | 2018-09-07 06:19 | NUR ---
Pt slept well during night hours, no complaints noted. Vital signs stable. Pt able to turn position by self. Ambulates with FWW. Continent for bladder and bowel, voids in the urinal, no BM noted. Hourly rounds done and patient care needs met. Bed alarm activated for safety, call light and bedside table within reach.
[2018-09-07 08:00] VITALS: BP 111/59; PULSE 62; RESP 16
[2018-09-07] MEDS: SPIRONOLACTONE 25 MG TAB PO SCH (08:39)
[2018-09-07] MEDS: POTASSIUM CHLORIDE (SR) 20 MEQ TAB PO SCH (08:39)
[2018-09-07] MEDS: DABIGATRAN 150 MG CAP PO SCH ×2 (08:39→20:33)
[2018-09-07] MEDS: LISINOPRIL 5 MG TAB PO SCH (08:40)
[2018-09-07] MEDS: ALLOPURINOL 300 MG TAB PO SCH (08:40)
--- NOTE | 2018-09-07 10:16 | PN ---
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 Approaching time for discharge (2) Systolic CHF Status: Chronic Comment: Well compensated. Check baseline labs to make sure about her potassium levels etc. Qualifiers: Heart failure chronicity: chronic Qualified Codes: I50.22 - Chronic systolic (congestive) heart failure (3) Atrial fibrillation, chronic Status: Chronic Comment: Adequate rate control using combination of beta-blockade and digoxin (4) Acquired hypothyroidism Status: Chronic Comment: Stable on replacement therapy recheck thyroid functions as last time they were checked was October (5) Essential hypertension Status: Chronic Comment: Excellent control (6) Hyperlipidemia Status: Chronic Comment: Stable on treatment Qualifiers: Hyperlipidemia type: pure hypercholesterolemia Qualified Codes: E78.00 - Pure hypercholesterolemia, unspecified Subjective 24 Hr Interval Summary Free Text/Dictation Cheerful gentleman ambulating with a front wheeled walker with the assistance of the staff Constitutional: no complaints Exam/Review of Systems Vital Signs Vitals Vital Signs Date Temp Pulse Resp B/P (MAP) Pulse Ox O2 O2 Flow FiO2 Time Delivery Rate 09/07/18 97.4 62 16 111/59 95 Room Air 08:00 (76) Intake and Output 09/06/18 09/06/18 09/07/18 1515:00 23:00 07:00 IntakeIntake Total 1040 ml 350 ml OutputOutput Total 650 ml BalanceBalance 1040 ml -300 ml Exam Constitutional: alert, oriented Respiratory: clear to auscultation, normal air movement Cardiovascular: nl pulses, irregular rhythm Medications Medications Current Medications Docusate Sodium (Colace) 100 mg BID PO ; Start 08/29/18 at 21:00; Status Hold Senna (Senokot) 1 tab HS PO ; Start 08/29/18 at 21:00; Status Hold Magnesium Hydroxide (Milk Of Mag) 30 ml BID PRN PO CONSTIPATION; Start 08/29/18 at 20:30 Lactulose (Enulose) 20 gm DAILY PRN PO CONSTIPATION; Start 08/29/18 at 20:30 Bisacodyl (Dulcolax Supp) 10 mg DAILY PRN [place] CONSTIPATION; Start 08/29/18 at 20:30 Acetaminophen (Tylenol Tab) 650 mg Q4H PRN PO PAIN; Start 08/29/18 at 20:30 Ondansetron HCl (Zofran Inj) 4 mg Q6H PRN IV NAUSEA AND/OR VOMITING; Start 08/29/18 at 22:00 Spironolactone (Aldactone) 25 mg DAILY PO Last administered on 09/07/18 08:39; Admin Dose 25 MG; Start 08/30/18 at 09:00 Zolpidem Tartrate (Ambien) 5 mg HS PRN PO INSOMNIA Last administered on 08/30/18 20:59; Admin Dose 5 MG; Start 08/29/18 at 22:00 Carvedilol (Coreg) 12.5 mg BID PO Last administered on 09/07/18 08:39; Admin Dose 12.5 MG; Start 08/29/18 at 23:00 Digoxin (Digoxin) 0.25 mg DAILY@13 PO Last administered on 09/06/18 13:49; Admin Dose 0.25 MG; Start 08/30/18 at 13:00 Potassium Chloride (Klor-Con 20) 20 meq DAILY PO Last administered on 09/07/18 08:39; Admin Dose 20 MEQ; Start 08/30/18 at 09:00 Furosemide (Lasix) 20 mg BID DIURETICS PO Last administered on 09/07/18 06:15; Admin Dose 20 MG; Start 08/30/18 at 06:00 Atorvastatin Calcium (Lipitor) 80 mg HS PO Last administered on 09/06/18 20:51; Admin Dose 80 MG; Start 08/29/18 at 22:00 Morphine Sulfate (morphine) 6 mg Q4H PRN PO SEVERE PAIN LEVEL 7-10; Start 08/29/18 at 22:00 Acetaminophen/ Hydrocodone Bitart ([place] (5/325)) 1 tab Q6H PRN PO MODERATE PAIN LEVEL 4-6; Start 08/29/18 at 22:00 Dabigatran (PRADaxa) 150 mg BID PO Last administered on 09/07/18 08:39; Admin Dose 150 MG; Start 08/29/18 at 23:30 Levothyroxine Sodium (Synthroid) 25 mcg AC BREAKFAST PO Last administered on 09/07/18at 06:15; Admin Dose 25 MCG; Start 08/30/18 at 07:00 Lisinopril (Zestril) 2.5 mg DAILY PO Last administered on 09/07/18at 08:40; Admin Dose 2.5 MG; Start 08/30/18 at 09:00 Allopurinol (Zyloprim) 300 mg DAILY PO Last administered on 09/07/18at 08:40; Admin Dose 300 MG; Start 08/30/18 at 09:00 GUSTAVO TORIBIO MD Sep 07, 2018 10:15
[2018-09-07] MEDS: DIGOXIN 0.25 MG TAB PO SCH (12:40)
[2018-09-07 14:00] VITALS: BP 104/52; PULSE 60; RESP 18
--- NOTE | 2018-09-07 17:13 | NUR ---
Patient is alert and breathing even. no SOB. no c/o pain. patient is cooperative during care. ambulatory with assistive device. tolerated well. patient visited by family. med and diet given as ordered. reminded patient to call when needed help.
[2018-09-07 20:00] VITALS: BP 116/62; PULSE 62; RESP 18
[2018-09-07] MEDS: ATORVASTATIN 80 MG TAB PO SCH (20:33)
[2018-09-08 02:00] VITALS: BP 110/64; PULSE 62; RESP 16
--- NOTE | 2018-09-08 05:49 | NUR ---
Pt slept well during night hours, no complaints noted. Vital signs stable. Able to turn position by self, continent for bladder and bowel, voids in the urinal, no BM noted. Hourly round done and patient care needs met. Bed alarm activated for safety, call light and bedside table within reach.
[2018-09-08] MEDS: FUROSEMIDE 20 MG TAB PO SCH ×2 (06:34→18:00)
[2018-09-08] MEDS: LEVOTHYROXINE 25 MCG TAB PO SCH (06:34)
[2018-09-08 07:49] VITALS: BP 118/67; PULSE 62; RESP 17
[2018-09-08] MEDS: ALLOPURINOL 300 MG TAB PO SCH (08:04)
[2018-09-08] MEDS: DABIGATRAN 150 MG CAP PO SCH ×2 (08:05→19:55)
[2018-09-08] MEDS: SPIRONOLACTONE 25 MG TAB PO SCH (08:05)
[2018-09-08] MEDS: POTASSIUM CHLORIDE (SR) 20 MEQ TAB PO SCH (08:06)
[2018-09-08] MEDS: LISINOPRIL 5 MG TAB PO SCH (08:06)
--- NOTE | 2018-09-08 09:06 | PN ---
Date/Time of Note Date/Time of Note DATE: 09/08/18 TIME: 09:05 Assessment/Plan VTE Prophylaxis Risk score (from Ns)>0 risk: 4 SCD applied (from Ns): Yes (pradaxa) Pharmacological prophylaxis: other Lines/Catheters [facility]from [facility] Saline Lock Urinary Cath still in place: No Assessment/Plan Hospital Course SUBJECTIVE: No acute distress. OBJECTIVE: Vital signs-see below PHYSICAL EXAM: Constitutional: Well-developed, adequately built, lying in bed comfortably. Psych: nl mood/affect, no complaints Head: atraumatic, normocephalic Eyes: nl conjunctiva, nl sclera ENMT: mucosa pink and moist, nl external ears & nose Neck: non-tender, supple Respiratory: clear to auscultation, normal air movement Cardiovascular: nl pulses, regular rate and rhythm Gastrointestinal: non-tender, soft, bowel sounds active in all 4 quadrants. Musculoskeletal/extremities: Mild weakness to bilateral upper and lower extremities. Nl extremities to inspection, motor strength 4/5 bilaterally, no focal deficit. Normal pulses,no cyanosis, no edema. Neurological: Alert oriented 3,nl speech, nl strength Skin: nl turgor ASSESSMENT/PLAN: 1. CVA.CT head shows a subacute infarct within the left posterior cerebral artery territory,MRI unable to be done secondary to history of AICD -Pradaxa and statin -Continue rehab 2. S/P UTI/Sepsis -ABX course completed. 3.chronic CHF status post AICD. TTE with EF 45%. Patient euvolemic Continue diuretics, NICHOLAS inhibitors, beta-blockers, Aldactone 4. Hypothyroidism on Synthroid 5. Hypertension Stable Continue antihypertensives. Prophylaxis: Pradaxa Patient was seen in collaboration with Result Diagram: 09/08/1862509/08/1826 Results 24hrs Laboratory Tests Test 09/08/18 06:26 09/08/18 06:27 White Blood Count 7.4 Red Blood Count 4.48 L Hemoglobin 13.9 L Hematocrit 40.8 L Mean Corpuscular Volume 91.1 Mean Corpuscular Hemoglobin 31.0 Mean Corpuscular Hemoglobin Concent 34.1 Red Cell Distribution Width 12.9 Platelet Count 130 L Mean Platelet Volume 11.5 H Immature Granulocytes % 0.300 Neutrophils % 60.1 Lymphocytes % 21.2 Monocytes % 10.6 Eosinophils % 7.0 Basophils % 0.8 Nucleated Red Blood Cells % 0.0 Immature Granulocytes # 0.020 Neutrophils # 4.5 Lymphocytes # 1.6 Monocytes # 0.8 Eosinophils # 0.5 Basophils # 0.1 Nucleated Red Blood Cells # 0.0 Sodium Level 138 Potassium Level 4.6 Chloride Level 98 Carbon Dioxide Level 32 H Anion Gap 8 Blood Urea Nitrogen 21 H Creatinine 1.04 Est Glomerular Filtrat Rate mL/min Glucose Level 107 Calcium Level 9.2 Magnesium Level 2.0 Total Bilirubin 0.5 Direct Bilirubin 0.00 Indirect Bilirubin 0.5 Aspartate Amino Transf (AST/SGOT) 31 Alanine Aminotransferase (ALT/SGPT) 19 Alkaline Phosphatase 81 Total Protein 7.4 Albumin 3.8 Globulin 3.60 H Albumin/Globulin Ratio 1.05 Thyroid Stimulating Hormone (TSH) 12.500 H Digoxin Level 0.8 L Free Thyroxine 0.94 Exam/Review of Systems Vital Signs Vitals Vital Signs Date Temp Pulse Resp B/P (MAP) Pulse Ox O2 O2 Flow FiO2 Time Delivery Rate 09/08/18 98.3 62 17 118/67 98 Room Air 07:49 (84) Intake and Output 09/07/18 09/07/18 09/08/18 1515:00 23:00 07:00 IntakeIntake Total 720 ml 350 ml OutputOutput Total 750 ml BalanceBalance 720 ml -400 ml Medications Medications Current Medications Docusate Sodium (Colace) 100 mg BID PO ; Start 08/29/18 at 21:00; Status Hold Senna (Senokot) 1 tab HS PO ; Start 08/29/18 at 21:00; Status Hold Magnesium Hydroxide (Milk Of Mag) 30 ml BID PRN PO CONSTIPATION; Start 08/29/18 at 20:30 Lactulose (Enulose) 20 gm DAILY PRN PO CONSTIPATION; Start 08/29/18 at 20:30 Bisacodyl (Dulcolax Supp) 10 mg DAILY PRN [place] CONSTIPATION; Start 08/29/18 at 20:30 Acetaminophen (Tylenol Tab) 650 mg Q4H PRN PO PAIN; Start 08/29/18 at 20:30 Ondansetron HCl (Zofran Inj) 4 mg Q6H PRN IV NAUSEA AND/OR VOMITING; Start 08/29/18 at 22:00 Spironolactone (Aldactone) 25 mg DAILY PO Last administered on 09/08/18 08:05; Admin Dose 25 MG; Start 08/30/18 at 09:00 Zolpidem Tartrate (Ambien) 5 mg HS PRN PO INSOMNIA Last administered on 08/30/18 20:59; Admin Dose 5 MG; Start 08/29/18 at 22:00 Carvedilol (Coreg) 12.5 mg BID PO Last administered on 09/08/18 08:05; Admin Dose 12.5 MG; Start 08/29/18 at 23:00 Digoxin (Digoxin) 0.25 mg DAILY@13 PO Last administered on 09/06/18 13:49; Admin Dose 0.25 MG; Start 08/30/18 at 13:00 Potassium Chloride (Klor-Con 20) 20 meq DAILY PO Last administered on 09/08/18 08:06; Admin Dose 20 MEQ; Start 08/30/18 at 09:00 Furosemide (Lasix) 20 mg BID DIURETICS PO Last administered on 09/08/18 06:34; Admin Dose 20 MG; Start 08/30/18 at 06:00 Atorvastatin Calcium (Lipitor) 80 mg HS PO Last administered on 09/07/18 20:33; Admin Dose 80 MG; Start 08/29/18 at 22:00 Morphine Sulfate (morphine) 6 mg Q4H PRN PO SEVERE PAIN LEVEL 7-10; Start 08/29/18 at 22:00 Acetaminophen/ Hydrocodone Bitart ([place] (5/325)) 1 tab Q6H PRN PO MODERATE PAIN LEVEL 4-6; Start 08/29/18 at 22:00 Dabigatran (PRADaxa) 150 mg BID PO Last administered on 09/08/18 08:05; Admin Dose 150 MG; Start 08/29/18 at 23:30 Levothyroxine Sodium (Synthroid) 25 mcg AC BREAKFAST PO Last administered on 09/08/18 06:34; Admin Dose 25 MCG; Start 08/30/18 at 07:00 Lisinopril (Zestril) 2.5 mg DAILY PO Last administered on 09/08/18 08:06; Admin Dose 2.5 MG; Start 08/30/18 at 09:00 Allopurinol (Zyloprim) 300 mg DAILY PO Last administered on 09/08/18 08:04; Admin Dose 300 MG; Start 08/30/18 at 09:00 RITA SUGGS NP Sep 08, 2018 09:06
--- NOTE | 2018-09-08 09:46 | PN ---
Date/Time of Note Date/Time of Note DATE: 09/08/18 TIME: 09:45 Subjective Patient comfortable, no complaints Objective Vital Signs Date Temp Pulse Resp B/P (MAP) Pulse Ox O2 O2 Flow FiO2 Time Delivery Rate 09/08/18 98.3 62 17 118/67 98 Room Air 07:49 (84) Intake and Output 09/07/18 09/07/18 09/08/18 1515:00 23:00 07:00 IntakeIntake Total 720 ml 350 ml OutputOutput Total 750 ml BalanceBalance 720 ml -400 ml Exam INTERDISCIPLINARY TEAM CONFERENCE EXAM PULM- CTA ABD- Soft, BS BOWEL- Cont BLADDER-Cont SKIN- intact OT- DRESSING-S BATHING-S TOILETING-S PT- BED MOBILITY-SBA TRANSFERS-SBA AMBULATION-SBA 150 feet SPEECH- COGNITION-mod Dysphagia-improved A/P- Interdisciplinary team conference held today. Please see interdisciplinary sheet. Working toward d.cEctor on 09/12 with post discharge follow up of physical the rapy, occupational therapy, and speech therapy. Results/Medications Result Diagram: 09/08/18 0609/08/18 0626 Results 24 hrs Laboratory Tests Test 09/08/18 06:26 09/08/18 06:27 White Blood Count 7.4 Red Blood Count 4.48 L Hemoglobin 13.9 L Hematocrit 40.8 L Mean Corpuscular Volume 91.1 Mean Corpuscular Hemoglobin 31.0 Mean Corpuscular Hemoglobin Concent 34.1 Red Cell Distribution Width 12.9 Platelet Count 130 L Mean Platelet Volume 11.5 H Immature Granulocytes % 0.300 Neutrophils % 60.1 Lymphocytes % 21.2 Monocytes % 10.6 Eosinophils % 7.0 Basophils % 0.8 Nucleated Red Blood Cells % 0.0 Immature Granulocytes # 0.020 Neutrophils # 4.5 Lymphocytes # 1.6 Monocytes # 0.8 Eosinophils # 0.5 Basophils # 0.1 Nucleated Red Blood Cells # 0.0 Sodium Level 138 Potassium Level 4.6 Chloride Level 98 Carbon Dioxide Level 32 H Anion Gap 8 Blood Urea Nitrogen 21 H Creatinine 1.04 Est Glomerular Filtrat Rate mL/min Glucose Level 107 Calcium Level 9.2 Magnesium Level 2.0 Total Bilirubin 0.5 Direct Bilirubin 0.00 Indirect Bilirubin 0.5 Aspartate Amino Transf (AST/SGOT) 31 Alanine Aminotransferase (ALT/SGPT) 19 Alkaline Phosphatase 81 Total Protein 7.4 Albumin 3.8 Globulin 3.60 H Albumin/Globulin Ratio 1.05 Thyroid Stimulating Hormone (TSH) 12.500 H Digoxin Level 0.8 L Free Thyroxine 0.94 Medications Current Medications Docusate Sodium (Colace) 100 mg BID PO ; Start 08/29/18 at 21:00; Status Hold Senna (Senokot) 1 tab HS PO ; Start 08/29/18 at 21:00; Status Hold Magnesium Hydroxide (Milk Of Mag) 30 ml BID PRN PO CONSTIPATION; Start 08/29/18 at 20:30 Lactulose (Enulose) 20 gm DAILY PRN PO CONSTIPATION; Start 08/29/18 at 20:30 Bisacodyl (Dulcolax Supp) 10 mg DAILY PRN [place] CONSTIPATION; Start 08/29/18 at 20:30 Acetaminophen (Tylenol Tab) 650 mg Q4H PRN PO PAIN; Start 08/29/18 at 20:30 Ondansetron HCl (Zofran Inj) 4 mg Q6H PRN IV NAUSEA AND/OR VOMITING; Start 08/29/18 at 22:00 Spironolactone (Aldactone) 25 mg DAILY PO Last administered on 09/08/18at 08:05; Admin Dose 25 MG; Start 08/30/18 at 09:00 Zolpidem Tartrate (Ambien) 5 mg HS PRN PO INSOMNIA Last administered on 08/30/18at 20:59; Admin Dose 5 MG; Start 08/29/18 at 22:00 Carvedilol (Coreg) 12.5 mg BID PO Last administered on 09/08/18at 08:05; Admin Dose 12.5 MG; Start 08/29/18 at 23:00 Digoxin (Digoxin) 0.25 mg DAILY@13 PO Last administered on 09/06/18at 13:49; Admin Dose 0.25 MG; Start 08/30/18 at 13:00 Potassium Chloride (Klor-Con 20) 20 meq DAILY PO Last administered on 09/08/18at 08:06; Admin Dose 20 MEQ; Start 08/30/18 at 09:00 Furosemide (Lasix) 20 mg BID DIURETICS PO Last administered on 09/08/18 06:34; Admin Dose 20 MG; Start 08/30/18 at 06:00 Atorvastatin Calcium (Lipitor) 80 mg HS PO Last administered on 12/30/18at 20:33; Admin Dose 80 MG; Start 08/29/18 at 22:00 Morphine Sulfate (morphine) 6 mg Q4H PRN PO SEVERE PAIN LEVEL 7-10; Start 08/29/18 at 22:00 Acetaminophen/ Hydrocodone Bitart ([place] (5/325)) 1 tab Q6H PRN PO MODERATE PAIN LEVEL 4-6; Start 08/29/18 at 22:00 Dabigatran (PRADaxa) 150 mg BID PO Last administered on 09/08/18at 08:05; Admin Dose 150 MG; Start 08/29/18 at 23:30 Levothyroxine Sodium (Synthroid) 25 mcg AC BREAKFAST PO Last administered on 09/08/18at 06:34; Admin Dose 25 MCG; Start 08/30/18 at 07:00 Lisinopril (Zestril) 2.5 mg DAILY PO Last administered on 09/08/18at 08:06; Admin Dose 2.5 MG; Start 08/30/18 at 09:00 Allopurinol (Zyloprim) 300 mg DAILY PO Last administered on 09/08/18at 08:04; Admin Dose 300 MG; Start 08/30/18 at 09:00 TATUM TRACEY MD Sep 08, 2018 09:45
--- NOTE | 2018-09-08 09:47 | NUR ---
[facility] PT Weekly Summary Dates From: 08/30/18 to 09/07/18 Patient Name: MIGUEL CACERES MR#: [id number] Height: 5 ft 4 in Weight: 154 lbs 5.177 oz 70.000 kg Reason for Visit: STROKE Precautions: fall risk, confused Date: 09/07/18 Time: 0947 User: NASIR MARIEE Short-term Goals: 1. Bed mobility SBA 2. All transfers SBA 3. Gait training 150ft SBA with FWW Pt making good progress during his stay at [facility]. Pt demonstrates SBA for bed mobility, CGA for transfers, SBA for WC mobility 150ft, CGA for gait 150ft using FWW, Min A for stairs 10steps using B rails. Pt met STG's for bed mobility and transfers. Barriers: confused, dec problem solving, dec sequencing. Recommend FWW, manual WC with swing away leg rests, BSC, home with HHPT and 24hr assistance. Cont POC and progress as deepali.
--- NOTE | 2018-09-08 12:08 | NUR ---
PT NOTE: Called pt's spouse Araly to schedule caregiver training. Spouse reported that she's unable to come before 3pm this week. Was able to set up caregiver training with spouse on 09/11 at 6pm.
--- NOTE | 2018-09-08 13:12 | CONS ---
Assessment/Plan Assessment/Plan Hospital Course A: 83 M c/ multiple comorbidities, including afib and cardiomyopathy s/p AICD...now in [facility] for acute rehab. CT head was notable for a subacute posterior circulation infarction...for which neurology is consulted... CTA is without evidence of multifocal stenoses.. Echo demonstrates mild LV systolic dysfunction and an EF of 45%, but is otherwise unrevealing P: OK to continue Pradaxa for now given subacute appearance of infarction.. Agree w/ lipitor daily (goal LDL <70) BP, glucose control and other medical management per primary PT/OT/ST per funeral home attendant Will follow clinically Result Diagram: 09/08/18 0626 09/08/18 0626 Results 24hrs Laboratory Tests Test 09/08/18 06:26 09/08/18 06:27 White Blood Count 7.4 Red Blood Count 4.48 L Hemoglobin 13.9 L Hematocrit 40.8 L Mean Corpuscular Volume 91.1 Mean Corpuscular Hemoglobin 31.0 Mean Corpuscular Hemoglobin Concent 34.1 Red Cell Distribution Width 12.9 Platelet Count 130 L Mean Platelet Volume 11.5 H Immature Granulocytes % 0.300 Neutrophils % 60.1 Lymphocytes % 21.2 Monocytes % 10.6 Eosinophils % 7.0 Basophils % 0.8 Nucleated Red Blood Cells % 0.0 Immature Granulocytes # 0.020 Neutrophils # 4.5 Lymphocytes # 1.6 Monocytes # 0.8 Eosinophils # 0.5 Basophils # 0.1 Nucleated Red Blood Cells # 0.0 Sodium Level 138 Potassium Level 4.6 Chloride Level 98 Carbon Dioxide Level 32 H Anion Gap 8 Blood Urea Nitrogen 21 H Creatinine 1.04 Est Glomerular Filtrat Rate mL/min Glucose Level 107 Calcium Level 9.2 Magnesium Level 2.0 Total Bilirubin 0.5 Direct Bilirubin 0.00 Indirect Bilirubin 0.5 Aspartate Amino Transf (AST/SGOT) 31 Alanine Aminotransferase (ALT/SGPT) 19 Alkaline Phosphatase 81 Total Protein 7.4 Albumin 3.8 Globulin 3.60 H Albumin/Globulin Ratio 1.05 Thyroid Stimulating Hormone (TSH) 12.500 H Digoxin Level 0.8 L Free Thyroxine 0.94 Consultation Date/Type/Reason Admit Date/Time Aug 29, 2018 at 18:59 Type of Consult Neurology Requesting Provider: ROSA MAN Date/Time of Note DATE: 12/31/18 TIME: 13:11 24 HR Interval Summary Free Text/Dictation Continues VRC. Pt states that he is doing well and is without complaints at this time. Exam Vital Signs Vitals Vital Signs Date Temp Pulse Resp B/P (MAP) Pulse Ox O2 O2 Flow FiO2 Time Delivery Rate 09/08/18 98.3 62 17 118/67 98 Room Air 07:49 (84) Intake and Output 09/07/18 09/07/18 09/08/18 1515:00 23:00 07:00 IntakeIntake Total 720 ml 350 ml OutputOutput Total 750 ml BalanceBalance 720 ml -400 ml Exam PE: Gen Appearance: No Apparent Distress HEENT: Normocephalic Cardiovascular: Regular rate Lungs: Clear bilaterally Abdomen: Soft Extremities: Dry NE: The patient was alert and oriented to person, hospital, month, and year.... Language was normal. Fund of knowledge was adequate. Pupils were equal and reactive to light. There was no afferent pupillary defect. Peripheral/lateral visual dunlap were diminished in R eye. Funduscopic examination was limited. Extra-ocular movements were full. Ptosis was absent. There was no nystagmus. Facial sensation was normal. Face was symmetric with normal strength. Hearing was intact. Palate movements were normal. Neck strength was normal. There was normal tongue bulk and speed of movement. Tone was normal. Muscle bulk was normal. I did not see fasciculations. Arms and legs were strong. Vibration sensation was normal. Temperature and pinprick sensation was normal. Rapid alternating movements were normal. There was no dysmetria. There was no intention tremor. Gait was cautious.. Arm and leg reflexes were symmetric. Baker's sign was absent. Plantar responses were flexor. GIOVANNI LLAMAS NP Sep 08, 2018 13:12 GABINO STANFORD Sep 08, 2018 20:41
[2018-09-08] MEDS: DIGOXIN 0.25 MG TAB PO SCH (14:55)
[2018-09-08 14:56] VITALS: BP 110/64; PULSE 62; RESP 18
[2018-09-08 18:16] VITALS: BP 101/62; PULSE 62; RESP 18
[2018-09-08 19:46] VITALS: BP 104/52; PULSE 71; RESP 18
[2018-09-08] MEDS: ATORVASTATIN 80 MG TAB PO SCH (19:55)
[2018-09-09 02:15] VITALS: BP 110/57; PULSE 74; RESP 16
--- NOTE | 2018-09-09 05:52 | NUR ---
PT IS CALM AND COOPERATIVE, SLEEPING ON OFF DURING THE SHIFT. DENIES PAIN. NO DISTRESS NOTED. ABLE TO USE CALL LIGHT FOR HELP. MEDS GIVEN. NEEDS ATTENDED. HOURLY ROUNDING MADE.
[2018-09-09] MEDS: FUROSEMIDE 20 MG TAB PO SCH ×2 (06:50→17:18)
[2018-09-09] MEDS: LEVOTHYROXINE 25 MCG TAB PO SCH (06:50)
[2018-09-09 08:00] VITALS: BP 101/65; PULSE 70; RESP 18
[2018-09-09] MEDS: DABIGATRAN 150 MG CAP PO SCH ×2 (08:21→20:12)
[2018-09-09] MEDS: SPIRONOLACTONE 25 MG TAB PO SCH (08:21)
[2018-09-09] MEDS: POTASSIUM CHLORIDE (SR) 20 MEQ TAB PO SCH (08:21)
[2018-09-09] MEDS: ALLOPURINOL 300 MG TAB PO SCH (08:21)
[2018-09-09] MEDS: LISINOPRIL 5 MG TAB PO SCH (08:30)
--- NOTE | 2018-09-09 10:49 | PN ---
Date/Time of Note Date/Time of Note DATE: 09/09/18 TIME: 10:49 Subjective Comfortable, no new complaints Objective Vital Signs Date Temp Pulse Resp B/P (MAP) Pulse Ox O2 O2 Flow FiO2 Time Delivery Rate 09/09/18 98.9 70 18 101/65 98 Room Air 08:00 (77) Intake and Output 09/08/18 09/08/18 09/09/18 1515:00 23:00 07:00 IntakeIntake Total 400 ml 200 ml OutputOutput Total 500 ml 200 ml BalanceBalance -100 ml 0 ml Exam pulm-cta abd-soft sba ambulation Results/Medications Result Diagram: 09/08/1862509/08/18625 Medications Current Medications Docusate Sodium (Colace) 100 mg BID PO ; Start 08/29/18 at 21:00; Status Hold Senna (Senokot) 1 tab HS PO ; Start 08/29/18 at 21:00; Status Hold Magnesium Hydroxide (Milk Of Mag) 30 ml BID PRN PO CONSTIPATION; Start 08/29/18 at 20:30 Lactulose (Enulose) 20 gm DAILY PRN PO CONSTIPATION; Start 08/29/18 at 20:30 Bisacodyl (Dulcolax Supp) 10 mg DAILY PRN [place] CONSTIPATION; Start 08/29/18 at 20:30 Acetaminophen (Tylenol Tab) 650 mg Q4H PRN PO PAIN; Start 08/29/18 at 20:30 Ondansetron HCl (Zofran Inj) 4 mg Q6H PRN IV NAUSEA AND/OR VOMITING; Start 08/29/18 at 22:00 Spironolactone (Aldactone) 25 mg DAILY PO Last administered on 09/09/18at 08:21; Admin Dose 25 MG; Start 08/30/18 at 09:00 Zolpidem Tartrate (Ambien) 5 mg HS PRN PO INSOMNIA Last administered on 08/30/18at 20:59; Admin Dose 5 MG; Start 08/29/18 at 22:00 Carvedilol (Coreg) 12.5 mg BID PO Last administered on 09/09/18at 08:29; Admin Dose 12.5 MG; Start 08/29/18 at 23:00 Digoxin (Digoxin) 0.25 mg DAILY@13 PO Last administered on 09/08/18at 14:55; Admin Dose 0.25 MG; Start 08/30/18 at 13:00 Potassium Chloride (Klor-Con 20) 20 meq DAILY PO Last administered on 09/09/18 08:21; Admin Dose 20 MEQ; Start 08/30/18 at 09:00 Furosemide (Lasix) 20 mg BID DIURETICS PO Last administered on 09/09/18 06:50; Admin Dose 20 MG; Start 08/30/18 at 06:00 Atorvastatin Calcium (Lipitor) 80 mg HS PO Last administered on 09/08/18 19:55; Admin Dose 80 MG; Start 08/29/18 at 22:00 Morphine Sulfate (morphine) 6 mg Q4H PRN PO SEVERE PAIN LEVEL 7-10; Start 08/29/18 at 22:00 Acetaminophen/ Hydrocodone Bitart ([place] (5/325)) 1 tab Q6H PRN PO MODERATE PAIN LEVEL 4-6; Start 08/29/18 at 22:00 Dabigatran (PRADaxa) 150 mg BID PO Last administered on 09/09/18 08:21; Admin Dose 150 MG; Start 08/29/18 at 23:30 Levothyroxine Sodium (Synthroid) 25 mcg AC BREAKFAST PO Last administered on 09/09/18 06:50; Admin Dose 25 MCG; Start 08/30/18 at 07:00 Lisinopril (Zestril) 2.5 mg DAILY PO Last administered on 09/09/18 08:30; Admin Dose 2.5 MG; Start 08/30/18 at 09:00 Allopurinol (Zyloprim) 300 mg DAILY PO Last administered on 09/09/18 08:21; Admin Dose 300 MG; Start 08/30/18 at 09:00 Assessment/Plan Additional Assessment/Plan Rehab- 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 Overall making good progress. Working on caregiver training for safe discharge home with family. FEN- encourage PO intake. Nutritional supplement ordered History of CHF. History of AICD. Hypothyroidism. Hypertension. TATUM TRACEY MD Sep 09, 2018 10:49
--- NOTE | 2018-09-09 12:29 | PN ---
Date/Time of Note Date/Time of Note DATE: 09/09/18 TIME: 12:28 Assessment/Plan VTE Prophylaxis Risk score (from Ns)>0 risk: 4 SCD applied (from Ns): Yes Pharmacological prophylaxis: other (PRADAXA) Lines/Catheters IV C[facility]ter Type [facility]from [facility] Saline Lock Urinary Cath still in place: No Assessment/Plan Hospital Course SUBJECTIVE: No acute distress. OBJECTIVE: Vital signs-see below PHYSICAL EXAM: Constitutional: Well-developed, adequately built, lying in bed comfortably. Psych: nl mood/affect, no complaints Head: atraumatic, normocephalic Eyes: nl conjunctiva, nl sclera ENMT: mucosa pink and moist, nl external ears & nose Neck: non-tender, supple Respiratory: clear to auscultation, normal air movement Cardiovascular: nl pulses, regular rate and rhythm Gastrointestinal: non-tender, soft, bowel sounds active in all 4 quadrants. Musculoskeletal/extremities: Mild weakness to bilateral upper and lower extremities. Nl extremities to inspection, motor strength 4/5 bilaterally, no focal deficit. Normal pulses,no cyanosis, no edema. Neurological: Alert oriented 3,nl speech, nl strength Skin: nl turgor ASSESSMENT/PLAN: 1. CVA.CT head shows a subacute infarct within the left posterior cerebral artery territory,MRI unable to be done secondary to history of AICD -Pradaxa and statin -Continue rehab 2. S/P UTI/Sepsis -ABX course completed. 3.chronic CHF status post AICD. TTE with EF 45%. Patient euvolemic Continue diuretics, NICHOLAS inhibitors, beta-blockers, Aldactone 4. Hypothyroidism on Synthroid 5. Hypertension Stable Continue antihypertensives. Prophylaxis: Pradaxa Patient was seen in collaboration with Result Diagram: 09/08/1862509/08/18625 Exam/Review of Systems Vital Signs Vitals Vital Signs Date Temp Pulse Resp B/P (MAP) Pulse Ox O2 O2 Flow FiO2 Time Delivery Rate 09/09/18 98.9 70 18 101/65 98 Room Air 08:00 (77) Intake and Output 09/08/18 09/08/18 09/09/18 1515:00 23:00 07:00 IntakeIntake Total 400 ml 200 ml OutputOutput Total 500 ml 200 ml BalanceBalance -100 ml 0 ml Medications Medications Current Medications Docusate Sodium (Colace) 100 mg BID PO ; Start 08/29/18 at 21:00; Status Hold Senna (Senokot) 1 tab HS PO ; Start 08/29/18 at 21:00; Status Hold Magnesium Hydroxide (Milk Of Mag) 30 ml BID PRN PO CONSTIPATION; Start 08/29/18 at 20:30 Lactulose (Enulose) 20 gm DAILY PRN PO CONSTIPATION; Start 08/29/18 at 20:30 Bisacodyl (Dulcolax Supp) 10 mg DAILY PRN [place] CONSTIPATION; Start 08/29/18 at 20:30 Acetaminophen (Tylenol Tab) 650 mg Q4H PRN PO PAIN; Start 08/29/18 at 20:30 Ondansetron HCl (Zofran Inj) 4 mg Q6H PRN IV NAUSEA AND/OR VOMITING; Start 08/29/18 at 22:00 Spironolactone (Aldactone) 25 mg DAILY PO Last administered on 09/09/18 08:21; Admin Dose 25 MG; Start 08/30/18 at 09:00 Zolpidem Tartrate (Ambien) 5 mg HS PRN PO INSOMNIA Last administered on 08/30/18at 20:59; Admin Dose 5 MG; Start 08/29/18 at 22:00 Carvedilol (Coreg) 12.5 mg BID PO Last administered on 09/09/18 08:29; Admin Dose 12.5 MG; Start 08/29/18 at 23:00 Digoxin (Digoxin) 0.25 mg DAILY@13 PO Last administered on 09/08/18at 14:55; Admin Dose 0.25 MG; Start 08/30/18 at 13:00 Potassium Chloride (Klor-Con 20) 20 meq DAILY PO Last administered on 09/09/18 08:21; Admin Dose 20 MEQ; Start 08/30/18 at 09:00 Furosemide (Lasix) 20 mg BID DIURETICS PO Last administered on 09/09/18 06:50; Admin Dose 20 MG; Start 08/30/18 at 06:00 Atorvastatin Calcium (Lipitor) 80 mg HS PO Last administered on 09/08/18at 19:55; Admin Dose 80 MG; Start 08/29/18 at 22:00 Morphine Sulfate (morphine) 6 mg Q4H PRN PO SEVERE PAIN LEVEL 7-10; Start 08/29/18 at 22:00 Acetaminophen/ Hydrocodone Bitart ([place] (5/325)) 1 tab Q6H PRN PO MODERATE PAIN LEVEL 4-6; Start 08/29/18 at 22:00 Dabigatran (PRADaxa) 150 mg BID PO Last administered on 09/09/18 08:21; Admin Dose 150 MG; Start 08/29/18 at 23:30 Levothyroxine Sodium (Synthroid) 25 mcg AC BREAKFAST PO Last administered on 09/09/18 06:50; Admin Dose 25 MCG; Start 08/30/18 at 07:00 Lisinopril (Zestril) 2.5 mg DAILY PO Last administered on 09/09/18 08:30; Admin Dose 2.5 MG; Start 08/30/18 at 09:00 Allopurinol (Zyloprim) 300 mg DAILY PO Last administered on 09/09/18 08:21; Admin Dose 300 MG; Start 08/30/18 at 09:00 RITA SUGGS NP Sep 09, 2018 12:29
[2018-09-09] MEDS: DIGOXIN 0.25 MG TAB PO SCH (13:33)
[2018-09-09 14:00] VITALS: BP 128/78; RESP 18
--- NOTE | 2018-09-09 17:52 | NUR ---
Nursing Notes: patient walked 2 times around the unit using FWW
[2018-09-09 19:41] VITALS: BP 130/69; PULSE 70; RESP 18
[2018-09-09] MEDS: ATORVASTATIN 80 MG TAB PO SCH (20:12)
[2018-09-10 02:00] VITALS: BP 114/60; PULSE 78; RESP 18
--- NOTE | 2018-09-10 05:22 | NUR ---
PT SLEEPS WELL DURING THE SHIFT. DENIES PAIN. NO ACUTE DISTRESS NOTED. VSS. ALL MEDS GIVEN. RN WALKED WITH PATIENT X 2 AROUND THE UNIT. FALL PRECAUTION. NEEDS ATTENDED. BM X1 IN TOILET. HOURLY ROUNDING MADE. CALL LIGHT AND TABLE ARE WITHIN REACH.
[2018-09-10] MEDS: LEVOTHYROXINE 25 MCG TAB PO SCH (06:24)
[2018-09-10] MEDS: FUROSEMIDE 20 MG TAB PO SCH ×2 (06:24→18:41)
[2018-09-10 08:00] VITALS: BP 105/63; PULSE 63; RESP 18
[2018-09-10] MEDS: SPIRONOLACTONE 25 MG TAB PO SCH (08:44)
[2018-09-10] MEDS: POTASSIUM CHLORIDE (SR) 20 MEQ TAB PO SCH (08:44)
[2018-09-10] MEDS: DABIGATRAN 150 MG CAP PO SCH ×2 (08:44→21:09)
[2018-09-10] MEDS: LISINOPRIL 5 MG TAB PO SCH (08:44)
[2018-09-10] MEDS: ALLOPURINOL 300 MG TAB PO SCH (08:46)
--- NOTE | 2018-09-10 11:11 | PN ---
Date/Time of Note Date/Time of Note DATE: 09/10/18 TIME: 11:07 Subjective Doing well, no complaints Objective Vital Signs Date Temp Pulse Resp B/P (MAP) Pulse Ox O2 O2 Flow FiO2 Time Delivery Rate 09/10/18 97.6 63 18 105/63 98 Room Air 08:00 (77) Intake and Output 09/09/18 09/09/18 09/10/18 1515:00 23:00 07:00 IntakeIntake Total 710 ml 300 ml OutputOutput Total 450 ml 500 ml BalanceBalance 260 ml -200 ml Exam pulm-cta bd-soft sba ambulation Results/Medications Result Diagram: 09/08/1862509/08/18625 Medications Current Medications Docusate Sodium (Colace) 100 mg BID PO ; Start 08/29/18 at 21:00; Status Hold Senna (Senokot) 1 tab HS PO ; Start 08/29/18 at 21:00; Status Hold Magnesium Hydroxide (Milk Of Mag) 30 ml BID PRN PO CONSTIPATION; Start 08/29/18 at 20:30 Lactulose (Enulose) 20 gm DAILY PRN PO CONSTIPATION; Start 08/29/18 at 20:30 Bisacodyl (Dulcolax Supp) 10 mg DAILY PRN [place] CONSTIPATION; Start 08/29/18 at 20:30 Acetaminophen (Tylenol Tab) 650 mg Q4H PRN PO PAIN; Start 08/29/18 at 20:30 Ondansetron HCl (Zofran Inj) 4 mg Q6H PRN IV NAUSEA AND/OR VOMITING; Start 08/29/18 at 22:00 Spironolactone (Aldactone) 25 mg DAILY PO Last administered on 09/10/18at 08:44; Admin Dose 25 MG; Start 08/30/18 at 09:00 Zolpidem Tartrate (Ambien) 5 mg HS PRN PO INSOMNIA Last administered on 08/30/18at 20:59; Admin Dose 5 MG; Start 08/29/18 at 22:00 Carvedilol (Coreg) 12.5 mg BID PO Last administered on 09/10/18 08:44; Admin Dose 12.5 MG; Start 08/29/18 at 23:00 Digoxin (Digoxin) 0.25 mg DAILY@13 PO Last administered on 09/09/18at 13:33; Admin Dose 0.25 MG; Start 08/30/18 at 13:00 Potassium Chloride (Klor-Con 20) 20 meq DAILY PO Last administered on 09/10/18 08:44; Admin Dose 20 MEQ; Start 08/30/18 at 09:00 Furosemide (Lasix) 20 mg BID DIURETICS PO Last administered on 09/10/18 06:24; Admin Dose 20 MG; Start 08/30/18 at 06:00 Atorvastatin Calcium (Lipitor) 80 mg HS PO Last administered on 09/09/18 20:12; Admin Dose 80 MG; Start 08/29/18 at 22:00 Morphine Sulfate (morphine) 6 mg Q4H PRN PO SEVERE PAIN LEVEL 7-10; Start 08/29/18 at 22:00 Acetaminophen/ Hydrocodone Bitart ([place] (5/325)) 1 tab Q6H PRN PO MODERATE PAIN LEVEL 4-6; Start 08/29/18 at 22:00 Dabigatran (PRADaxa) 150 mg BID PO Last administered on 09/10/18 08:44; Admin Dose 150 MG; Start 08/29/18 at 23:30 Levothyroxine Sodium (Synthroid) 25 mcg AC BREAKFAST PO Last administered on 09/10/18 06:24; Admin Dose 25 MCG; Start 08/30/18 at 07:00 Lisinopril (Zestril) 2.5 mg DAILY PO Last administered on 09/10/18 08:44; Admin Dose 2.5 MG; Start 08/30/18 at 09:00 Allopurinol (Zyloprim) 300 mg DAILY PO Last administered on 09/10/18 08:46; Admin Dose 300 MG; Start 08/30/18 at 09:00 Assessment/Plan Additional Assessment/Plan Rehab- 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 Patient looking forward to home at end of the week after caregiver training. FEN- Improved oral intake History of CHF. History of AICD. Hypothyroidism. Hypertension. TATUM TRACEY MD Sep 10, 2018 11:11
--- NOTE | 2018-09-10 12:34 | PN ---
Date/Time of Note Date/Time of Note DATE: 09/10/18 TIME: 12:31 Assessment/Plan VTE Prophylaxis Risk score (from Ns)>0 risk: 4 SCD applied (from Ns): Yes Pharmacological prophylaxis: other (pradaxa) Lines/Catheters [facility] Saline Lock Urinary Cath still in place: No Assessment/Plan Hospital Course SUBJECTIVE: No acute distress. OBJECTIVE: Vital signs-see below PHYSICAL EXAM: Constitutional: Well-developed, adequately built, lying in bed comfortably. Psych: nl mood/affect, no complaints Head: atraumatic, normocephalic Eyes: nl conjunctiva, nl sclera ENMT: mucosa pink and moist, nl external ears & nose Neck: non-tender, supple Respiratory: clear to auscultation, normal air movement Cardiovascular: nl pulses, regular rate and rhythm Gastrointestinal: non-tender, soft, bowel sounds active in all 4 quadrants. Musculoskeletal/extremities: Mild weakness to bilateral upper and lower extremities. Nl extremities to inspection, motor strength 4/5 bilaterally, no focal deficit. Normal pulses,no cyanosis, no edema. Neurological: Alert oriented 3,nl speech, nl strength Skin: nl turgor ASSESSMENT/PLAN: 1. CVA.CT head shows a subacute infarct within the left posterior cerebral artery territory,MRI unable to be done secondary to history of AICD -Pradaxa and statin -Continue rehab 2. S/P UTI/Sepsis -ABX course completed. 3.chronic CHF status post AICD. TTE with EF 45%. Patient euvolemic Continue diuretics, NICHOLAS inhibitors, beta-blockers, Aldactone 4. Hypothyroidism on Synthroid 5. Hypertension Stable Continue antihypertensives. Prophylaxis: Pradaxa Patient was seen in collaboration with Result Diagram: 09/08/1862509/08/18625 Exam/Review of Systems Vital Signs Vitals Vital Signs Date Temp Pulse Resp B/P (MAP) Pulse Ox O2 O2 Flow FiO2 Time Delivery Rate 09/10/18 97.6 63 18 105/63 98 Room Air 08:00 (77) Intake and Output 09/09/18 09/09/18 09/10/18 1515:00 23:00 07:00 IntakeIntake Total 710 ml 300 ml OutputOutput Total 450 ml 500 ml BalanceBalance 260 ml -200 ml Medications Medications Current Medications Docusate Sodium (Colace) 100 mg BID PO ; Start 08/29/18 at 21:00; Status Hold Senna (Senokot) 1 tab HS PO ; Start 08/29/18 at 21:00; Status Hold Magnesium Hydroxide (Milk Of Mag) 30 ml BID PRN PO CONSTIPATION; Start 08/29/18 at 20:30 Lactulose (Enulose) 20 gm DAILY PRN PO CONSTIPATION; Start 08/29/18 at 20:30 Bisacodyl (Dulcolax Supp) 10 mg DAILY PRN [place] CONSTIPATION; Start 08/29/18 at 20:30 Acetaminophen (Tylenol Tab) 650 mg Q4H PRN PO PAIN; Start 08/29/18 at 20:30 Ondansetron HCl (Zofran Inj) 4 mg Q6H PRN IV NAUSEA AND/OR VOMITING; Start 08/29/18 at 22:00 Spironolactone (Aldactone) 25 mg DAILY PO Last administered on 09/10/18 08:44; Admin Dose 25 MG; Start 08/30/18 at 09:00 Zolpidem Tartrate (Ambien) 5 mg HS PRN PO INSOMNIA Last administered on 08/30/18at 20:59; Admin Dose 5 MG; Start 08/29/18 at 22:00 Carvedilol (Coreg) 12.5 mg BID PO Last administered on 09/10/18 08:44; Admin Dose 12.5 MG; Start 08/29/18 at 23:00 Digoxin (Digoxin) 0.25 mg DAILY@13 PO Last administered on 09/09/18 13:33; Admin Dose 0.25 MG; Start 08/30/18 at 13:00 Potassium Chloride (Klor-Con 20) 20 meq DAILY PO Last administered on 09/10/18 08:44; Admin Dose 20 MEQ; Start 08/30/18 at 09:00 Furosemide (Lasix) 20 mg BID DIURETICS PO Last administered on 09/10/18 06:24; Admin Dose 20 MG; Start 08/30/18 at 06:00 Atorvastatin Calcium (Lipitor) 80 mg HS PO Last administered on 09/09/18 20:12; Admin Dose 80 MG; Start 08/29/18 at 22:00 Morphine Sulfate (morphine) 6 mg Q4H PRN PO SEVERE PAIN LEVEL 7-10; Start 08/29/18 at 22:00 Acetaminophen/ Hydrocodone Bitart ([place] (5/325)) 1 tab Q6H PRN PO MODERATE PAIN LEVEL 4-6; Start 08/29/18 at 22:00 Dabigatran (PRADaxa) 150 mg BID PO Last administered on 09/10/18 08:44; Admin Dose 150 MG; Start 08/29/18 at 23:30 Levothyroxine Sodium (Synthroid) 25 mcg AC BREAKFAST PO Last administered on 09/10/18 06:24; Admin Dose 25 MCG; Start 08/30/18 at 07:00 Lisinopril (Zestril) 2.5 mg DAILY PO Last administered on 09/10/18 08:44; Admin Dose 2.5 MG; Start 08/30/18 at 09:00 Allopurinol (Zyloprim) 300 mg DAILY PO Last administered on 09/10/18 08:46; Admin Dose 300 MG; Start 08/30/18 at 09:00 RITA SUGGS NP Sep 10, 2018 12:34
[2018-09-10] MEDS: DIGOXIN 0.25 MG TAB PO SCH (12:48)
[2018-09-10 14:00] VITALS: BP 100/80; PULSE 60; RESP 18
--- NOTE | 2018-09-10 17:13 | NUR ---
Patient is alert and breathing even. no SOB. no c/o pain. patient is ambulatory with assistive device. tolerated well. meds and diet given as ordered. fluids encouraged. reminded patient to call when needed help.
[2018-09-10 19:26] VITALS: BP 104/57; PULSE 68; RESP 18
[2018-09-10] MEDS: ATORVASTATIN 80 MG TAB PO SCH (21:09)
[2018-09-11 01:07] VITALS: BP 104/68; PULSE 70; RESP 18
--- NOTE | 2018-09-11 06:10 | NUR ---
PT SLEEPS WELL, DENIES PAIN, NO ACUTE CHANGES NOTED. ABLE TO USE CALL LIGHT FOR HELP. HAD 1 BM, ASSISTED PT TO TOILET USING FWW. FALL PRECAUTION. MEDS GIVEN. VSS. HOURLY ROUNDING MADE. BED ALARM ON.
[2018-09-11] MEDS: LEVOTHYROXINE 25 MCG TAB PO SCH (06:31)
[2018-09-11] MEDS: FUROSEMIDE 20 MG TAB PO SCH ×2 (06:31→17:34)
[2018-09-11 08:00] VITALS: BP 104/64; PULSE 71; RESP 20
[2018-09-11] MEDS: DABIGATRAN 150 MG CAP PO SCH ×2 (09:20→20:53)
[2018-09-11] MEDS: POTASSIUM CHLORIDE (SR) 20 MEQ TAB PO SCH (09:20)
[2018-09-11] MEDS: ALLOPURINOL 300 MG TAB PO SCH (09:21)
[2018-09-11] MEDS: SPIRONOLACTONE 25 MG TAB PO SCH (09:21)
[2018-09-11] MEDS: LISINOPRIL 5 MG TAB PO SCH (09:24)
--- NOTE | 2018-09-11 11:06 | PN ---
Date/Time of Note Date/Time of Note DATE: 09/11/18 TIME: 11:04 Subjective Patient in good spirits, ready for discharge home Objective Vital Signs Date Temp Pulse Resp B/P (MAP) Pulse Ox O2 O2 Flow FiO2 Time Delivery Rate 09/11/18 97.9 70 18 104/68 95 Room Air 01:07 (80) Intake and Output 09/10/18 09/10/18 09/11/18 1515:00 23:00 07:00 IntakeIntake Total 720 ml 300 ml OutputOutput Total 600 ml BalanceBalance 120 ml 300 ml Exam pulm-cta abd-soft supervised ambulation 300 feet Results/Medications Result Diagram: 09/08/1862509/08/18625 Medications Current Medications Docusate Sodium (Colace) 100 mg BID PO ; Start 08/29/18 at 21:00; Status Hold Senna (Senokot) 1 tab HS PO ; Start 08/29/18 at 21:00; Status Hold Magnesium Hydroxide (Milk Of Mag) 30 ml BID PRN PO CONSTIPATION; Start 08/29/18 at 20:30 Lactulose (Enulose) 20 gm DAILY PRN PO CONSTIPATION; Start 08/29/18 at 20:30 Bisacodyl (Dulcolax Supp) 10 mg DAILY PRN [place] CONSTIPATION; Start 08/29/18 at 20:30 Acetaminophen (Tylenol Tab) 650 mg Q4H PRN PO PAIN; Start 08/29/18 at 20:30 Ondansetron HCl (Zofran Inj) 4 mg Q6H PRN IV NAUSEA AND/OR VOMITING; Start 08/29/18 at 22:00 Spironolactone (Aldactone) 25 mg DAILY PO Last administered on 09/11/18 09:21; Admin Dose 25 MG; Start 08/30/18 at 09:00 Zolpidem Tartrate (Ambien) 5 mg HS PRN PO INSOMNIA Last administered on 08/30/18at 20:59; Admin Dose 5 MG; Start 08/29/18 at 22:00 Carvedilol (Coreg) 12.5 mg BID PO Last administered on 09/11/18 09:24; Admin Dose 12.5 MG; Start 08/29/18 at 23:00 Digoxin (Digoxin) 0.25 mg DAILY@13 PO Last administered on 09/09/18 13:33; Admin Dose 0.25 MG; Start 08/30/18 at 13:00 Potassium Chloride (Klor-Con 20) 20 meq DAILY PO Last administered on 09/11/18 09:20; Admin Dose 20 MEQ; Start 08/30/18 at 09:00 Furosemide (Lasix) 20 mg BID DIURETICS PO Last administered on 09/11/18 06:31; Admin Dose 20 MG; Start 08/30/18 at 06:00 Atorvastatin Calcium (Lipitor) 80 mg HS PO Last administered on 09/10/18 21:09; Admin Dose 80 MG; Start 08/29/18 at 22:00 Morphine Sulfate (morphine) 6 mg Q4H PRN PO SEVERE PAIN LEVEL 7-10; Start 08/29/18 at 22:00 Acetaminophen/ Hydrocodone Bitart ([place] (5/325)) 1 tab Q6H PRN PO MODERATE PAIN LEVEL 4-6; Start 08/29/18 at 22:00 Dabigatran (PRADaxa) 150 mg BID PO Last administered on 09/11/18 09:20; Admin Dose 150 MG; Start 08/29/18 at 23:30 Levothyroxine Sodium (Synthroid) 25 mcg AC BREAKFAST PO Last administered on 09/11/18 06:31; Admin Dose 25 MCG; Start 08/30/18 at 07:00 Lisinopril (Zestril) 2.5 mg DAILY PO Last administered on 09/11/18 09:24; Admin Dose 2.5 MG; Start 08/30/18 at 09:00 Allopurinol (Zyloprim) 300 mg DAILY PO Last administered on 09/11/18 09:21; Admin Dose 300 MG; Start 08/30/18 at 09:00 Assessment/Plan Additional Assessment/Plan Rehab- Left posterior cerebral artery infarct CVA with left temporal lobe and le ft occipital lobe infarct and right-sided weakness. Exceleent progress. Family conference via phone with , she is looking forward to his return home. FEN- Improved oral intake History of CHF. History of AICD. Hypothyroidism. Hypertension. TATUM TRACEY MD Sep 11, 2018 11:06
[2018-09-11 13:00] VITALS: BP 111/61; PULSE 57; RESP 18
[2018-09-11] MEDS: DIGOXIN 0.25 MG TAB PO SCH (13:00)
--- NOTE | 2018-09-11 14:24 | PN ---
Date/Time of Note Date/Time of Note DATE: 09/11/18 TIME: 14:23 Assessment/Plan VTE Prophylaxis Risk score (from Ns)>0 risk: 3 SCD applied (from Ns): Yes Pharmacological prophylaxis: other (pradaxa) Lines/Catheters IV [facility]from [facility] Saline Lock Urinary Cath still in place: No Assessment/Plan Hospital Course SUBJECTIVE: No acute distress. OBJECTIVE: Vital signs-see below PHYSICAL EXAM: Constitutional: Well-developed, adequately built, lying in bed comfortably. Psych: nl mood/affect, no complaints Head: atraumatic, normocephalic Eyes: nl conjunctiva, nl sclera ENMT: mucosa pink and moist, nl external ears & nose Neck: non-tender, supple Respiratory: clear to auscultation, normal air movement Cardiovascular: nl pulses, regular rate and rhythm Gastrointestinal: non-tender, soft, bowel sounds active in all 4 quadrants. Musculoskeletal/extremities: Mild weakness to bilateral upper and lower extremities. Nl extremities to inspection, motor strength 4/5 bilaterally, no focal deficit. Normal pulses,no cyanosis, no edema. Neurological: Alert oriented 3,nl speech, nl strength Skin: nl turgor ASSESSMENT/PLAN: 1. CVA.CT head shows a subacute infarct within the left posterior cerebral artery territory,MRI unable to be done secondary to history of AICD -Pradaxa and statin -Continue rehab 2. S/P UTI/Sepsis -ABX course completed. 3.chronic CHF status post AICD. TTE with EF 45%. Patient euvolemic Continue diuretics, NICHOLAS inhibitors, beta-blockers, Aldactone 4. Hypothyroidism on Synthroid 5. Hypertension Stable Continue antihypertensives. Prophylaxis: Pradaxa Patient was seen in collaboration with Result Diagram: 09/08/1862509/08/18625 Exam/Review of Systems Vital Signs Vitals Vital Signs Date Temp Pulse Resp B/P (MAP) Pulse Ox O2 O2 Flow FiO2 Time Delivery Rate 09/11/18 99.8 71 20 104/64 93 Room Air 08:00 (77) Intake and Output 09/10/18 09/10/18 09/11/18 1515:00 23:00 07:00 IntakeIntake Total 720 ml 300 ml OutputOutput Total 600 ml BalanceBalance 120 ml 300 ml Medications Medications Current Medications Docusate Sodium (Colace) 100 mg BID PO ; Start 08/29/18 at 21:00; Status Hold Senna (Senokot) 1 tab HS PO ; Start 08/29/18 at 21:00; Status Hold Magnesium Hydroxide (Milk Of Mag) 30 ml BID PRN PO CONSTIPATION; Start 08/29/18 at 20:30 Lactulose (Enulose) 20 gm DAILY PRN PO CONSTIPATION; Start 08/29/18 at 20:30 Bisacodyl (Dulcolax Supp) 10 mg DAILY PRN [place] CONSTIPATION; Start 08/29/18 at 20:30 Acetaminophen (Tylenol Tab) 650 mg Q4H PRN PO PAIN; Start 08/29/18 at 20:30 Ondansetron HCl (Zofran Inj) 4 mg Q6H PRN IV NAUSEA AND/OR VOMITING; Start 08/29/18 at 22:00 Spironolactone (Aldactone) 25 mg DAILY PO Last administered on 09/11/18 09:21; Admin Dose 25 MG; Start 08/30/18 at 09:00 Zolpidem Tartrate (Ambien) 5 mg HS PRN PO INSOMNIA Last administered on 08/30/18at 20:59; Admin Dose 5 MG; Start 08/29/18 at 22:00 Carvedilol (Coreg) 12.5 mg BID PO Last administered on 09/11/18 09:24; Admin Dose 12.5 MG; Start 08/29/18 at 23:00 Digoxin (Digoxin) 0.25 mg DAILY@13 PO Last administered on 09/09/18 13:33; Admin Dose 0.25 MG; Start 08/30/18 at 13:00 Potassium Chloride (Klor-Con 20) 20 meq DAILY PO Last administered on 09/11/18 09:20; Admin Dose 20 MEQ; Start 08/30/18 at 09:00 Furosemide (Lasix) 20 mg BID DIURETICS PO Last administered on 09/11/18 06:31; Admin Dose 20 MG; Start 08/30/18 at 06:00 Atorvastatin Calcium (Lipitor) 80 mg HS PO Last administered on 09/10/18 21:09; Admin Dose 80 MG; Start 08/29/18 at 22:00 Morphine Sulfate (morphine) 6 mg Q4H PRN PO SEVERE PAIN LEVEL 7-10; Start 08/29/18 at 22:00 Acetaminophen/ Hydrocodone Bitart ([place] (5/325)) 1 tab Q6H PRN PO MODERATE PAIN LEVEL 4-6; Start 08/29/18 at 22:00 Dabigatran (PRADaxa) 150 mg BID PO Last administered on 09/11/18 09:20; Admin Dose 150 MG; Start 08/29/18 at 23:30 Levothyroxine Sodium (Synthroid) 25 mcg AC BREAKFAST PO Last administered on 09/11/18 06:31; Admin Dose 25 MCG; Start 08/30/18 at 07:00 Lisinopril (Zestril) 2.5 mg DAILY PO Last administered on 09/11/18 09:24; Admin Dose 2.5 MG; Start 08/30/18 at 09:00 Allopurinol (Zyloprim) 300 mg DAILY PO Last administered on 09/11/18 09:21; Admin Dose 300 MG; Start 08/30/18 at 09:00 RITA SUGGS NP Sep 11, 2018 14:24
--- NOTE | 2018-09-11 18:57 | NUR ---
No acute changes noted w/in shift. Pt was able to participate w/ his therapy w/o issues. Family visited the pt. Per , they will greens picker the pt around 3pm. Med recon & RX already done by Dr. West, reviewed & placed on pt's chart. No DME's noted at bedside yet. Pt had a shower this AM. Safety precaution observed at all times. Bed kept low & in locked pos. Call light w/in reach. Needs attended. Will endorse to PM RN for DC.
--- NOTE | 2018-09-11 19:12 | NUR ---
Pt caregiver was educated regarding patients safety at home. Caregiver was educated on importance of ensuring patient maintains locked w/c during transfers or beginning ambulation. Also urged caregiver to perform household activities such as cleaning and cooking as patient may pose danger to self, the home or others. Recommended door dial be placed in case pt attempts to leave the home unassisted or without supervision, to improve patients safety. Caregiver has good return demonstration of proper w/c safety, and proper sequencing and safety during transfer, ambulation, and stairs.
[2018-09-11 20:00] VITALS: BP 100/60; PULSE 64; RESP 18
[2018-09-11] MEDS: ATORVASTATIN 80 MG TAB PO SCH (20:53)
[2018-09-12 02:00] VITALS: BP 108/58; PULSE 60; RESP 16
--- NOTE | 2018-09-12 05:58 | NUR ---
Pt slept well during night hours, no complaints noted. Vital signs stable. Able to turn position by self, continent for bladder and bowel, had BM today morning. Hourly round done and patient care needs met. Bed alarm activated for safety, call light and bedside table within reach.
[2018-09-12] MEDS: FUROSEMIDE 20 MG TAB PO SCH (06:00)
[2018-09-12] MEDS: LEVOTHYROXINE 25 MCG TAB PO SCH (06:27)
[2018-09-12 07:30] VITALS: BP 103/56; PULSE 59; RESP 16
[2018-09-12] MEDS: POTASSIUM CHLORIDE (SR) 20 MEQ TAB PO SCH (08:38)
[2018-09-12] MEDS: SPIRONOLACTONE 25 MG TAB PO SCH (08:38)
[2018-09-12] MEDS: ALLOPURINOL 300 MG TAB PO SCH (08:38)
[2018-09-12] MEDS: LISINOPRIL 5 MG TAB PO SCH (08:39)
[2018-09-12] MEDS: DABIGATRAN 150 MG CAP PO SCH (08:39)
--- NOTE | 2018-09-12 10:31 | DS ---
Date/Time of Note Date/Time of Note DATE: 09/12/18 TIME: 10:29 Discharge Summary Admission/Discharge Info Admit Date/Time Aug 29, 2018 at 18:59 Discharge Date/Time Discharge Diagnosis 1. 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 2. History of CHF. 3. History of AICD. 4. Hypothyroidism. 5. Hypertension. 6. Improvements in self-care, mobility and cognition. Patient Condition: Good Hospital Course The patient was admitted for comprehensive interdisciplinary rehabilitation and made steady functional gains from a Mod level to a Supervised level for self care tasks and mobility including ambulating over 150 feet with the use of a FWW. Patient is being discharged home with the recommendation of home health PT, OT and RN follow up. The DC meds are per the medication reconciliation sheet. The discharge equipment recommendations include: FWW, BSC, shower chair. Family was agreeable with the treatment plan. The patient will follow up with PMD upon DC. Home Meds Active Scripts Atorvastatin* (Atorvastatin*) 80 Mg Tablet, 80 MG PO HS, #60 TAB Prov:ROSA MAN 08/29/18 Spironolactone* (Aldactone*) 25 Mg Tablet, 25 MG PO DAILY, #30 TAB Prov:RITA SUGGS V. COLLECTION TELLER 10/24/17 Furosemide* (Furosemide*) 40 Mg Tablet, 20 MG PO BID, #60 TAB Prov:RITA SUGGS V. COLLECTION TELLER 10/24/17 Reported Medications Potassium Chloride* (K-Dur*) 20 Meq Tab.prt.sr, 20 MEQ PO DAILY, TAB.SA 10/21/17 Lisinopril* (Lisinopril*) 2.5 Mg Tablet, 2.5 MG PO DAILY, #30 TAB 10/21/17 Levothyroxine Sodium* (Levoxyl*) 25 Mcg Tablet, 25 MCG PO BEFORE BREAKFAST, #30 TAB 10/21/17 Ferrous Sulfate* (Ferrous Sulfate*) 325 Mg Tabec, 325 MG PO BID, TAB 10/21/17 Digoxin* (Lanoxin*) 0.25 Mg Tablet, 0.25 MG PO DAILY, TAB 10/21/17 Dabigatran Etexilate Mesylate* (Pradaxa*) 150 Mg Capsule, 150 MG PO BID, CAP 10/21/17 Carvedilol* (Carvedilol*) 12.5 Mg Tablet, 12.5 MG PO BID, #60 TAB 10/21/17 Allopurinol* (Allopurinol*) 300 Mg Tablet, 300 MG PO DAILY, TAB 10/21/17 Primary Care Provider Not On Staff Doctor TATUM TRACEY MD Sep 12, 2018 10:31
--- NOTE | 2018-09-12 11:31 | NUR ---
Called Dr. Fink's office (spoke w/ Maureen) & [facility]son office (spoke w/ April), made them aware that pt is scheduled to be DC to home w/ HH today as ordered.
--- NOTE | 2018-09-12 11:52 | CONS ---
Assessment/Plan Assessment/Plan Hospital Course Assessment/Plan A: 83 M c/ multiple comorbidities, including afib and cardiomyopathy s/p AICD...now in [facility] for acute rehab. CT head was notable for a subacute posterior circulation infarction...for which neurology is consulted... CTA is without evidence of multifocal stenoses.. Echo demonstrates mild LV systolic dysfunction and an EF of 45%, but is otherwise unrevealing P: OK to continue Pradaxa for now given subacute appearance of infarction.. Agree w/ lipitor daily (goal LDL <70) BP, glucose control and other medical management per primary PT/OT/ST per infectious disease technician Will follow clinically Result Diagram: 09/08/1862509/08/18625 Consultation Date/Type/Reason Admit Date/Time Aug 29, 2018 at 18:59 Type of Consult Neurology Requesting Provider: ROSA MAN Date/Time of Note DATE: 09/12/18 TIME: 11:52 24 HR Interval Summary Free Text/Dictation Continues VRC. Pt states that he is doing much better today. Awaiting discharge. Exam Vital Signs Vitals Vital Signs Date Temp Pulse Resp B/P (MAP) Pulse Ox O2 O2 Flow FiO2 Time Delivery Rate 09/12/18 97.6 59 16 103/56 95 Room Air 07:30 (72) Intake and Output 09/11/18 09/11/18 09/12/18 1515:00 23:00 07:00 IntakeIntake Total 750 ml 240 ml OutputOutput Total 350 ml 100 ml 750 ml BalanceBalance 400 ml -100 ml -510 ml Exam PE: Gen Appearance: No Apparent Distress HEENT: Normocephalic Cardiovascular: Regular rate Lungs: Clear bilaterally Abdomen: Soft Extremities: Dry NE: The patient was alert and oriented to person, hospital, month, and year.... Language was normal. Fund of knowledge was adequate. Pupils were equal and reactive to light. There was no afferent pupillary defect. Peripheral/lateral visual dunlap were diminished in R eye. Funduscopic examination was limited. Extra-ocular movements were full. Ptosis was absent. There was no nystagmus. Facial sensation was normal. Face was symmetric with normal strength. Hearing was intact. Palate movements were normal. Neck strength was normal. There was normal tongue bulk and speed of movement. Tone was normal. Muscle bulk was normal. I did not see fasciculations. Arms and legs were strong. Vibration sensation was normal. Temperature and pinprick sensation was normal. Rapid alternating movements were normal. There was no dysmetria. There was no intention tremor. Gait was cautious.. Arm and leg reflexes were symmetric. Baker's sign was absent. Plantar responses were flexor. GIOVANNI LLAMAS NP Sep 12, 2018 11:52
[2018-09-12 13:00] VITALS: BP 111/70; PULSE 59; PULSE 60; RESP 18
[2018-09-12] MEDS: DIGOXIN 0.25 MG TAB PO SCH (13:00)
--- NOTE | 2018-09-12 13:27 | PN ---
Date/Time of Note Date/Time of Note DATE: 09/12/18 TIME: 13:26 Assessment/Plan VTE Prophylaxis Risk score (from Ns)>0 risk: 3 SCD applied (from Ns): Yes Pharmacological prophylaxis: other (pradaxa) Lines/Catheters IV [facility] Saline Lock Urinary Cath still in place: No Assessment/Plan Hospital Course SUBJECTIVE: No acute distress. For discharge today. OBJECTIVE: Vital signs-see below PHYSICAL EXAM: Constitutional: Well-developed, adequately built, lying in bed comfortably. Psych: nl mood/affect, no complaints Head: atraumatic, normocephalic Eyes: nl conjunctiva, nl sclera ENMT: mucosa pink and moist, nl external ears & nose Neck: non-tender, supple Respiratory: clear to auscultation, normal air movement Cardiovascular: nl pulses, regular rate and rhythm Gastrointestinal: non-tender, soft, bowel sounds active in all 4 quadrants. Musculoskeletal/extremities: Mild weakness to bilateral upper and lower extremities. Nl extremities to inspection, motor strength 4/5 bilaterally, no focal deficit. Normal pulses,no cyanosis, no edema. Neurological: Alert oriented 3,nl speech, nl strength Skin: nl turgor ASSESSMENT/PLAN: 1. CVA.CT head shows a subacute infarct within the left posterior cerebral artery territory,MRI unable to be done secondary to history of AICD -Pradaxa and statin -Continue rehab 2. S/P UTI/Sepsis -ABX course completed. 3.chronic CHF status post AICD. TTE with EF 45%. Patient euvolemic Continue diuretics, NICHOLAS inhibitors, beta-blockers, Aldactone 4. Hypothyroidism on Synthroid 5. Hypertension Stable Continue antihypertensives. Prophylaxis: Pradaxa Agree with discharge planning. Patient was seen in collaboration with Result Diagram: 09/08/1862509/08/18625 Exam/Review of Systems Vital Signs Vitals Vital Signs Date Temp Pulse Resp B/P (MAP) Pulse Ox O2 O2 Flow FiO2 Time Delivery Rate 09/12/18 97.6 59 16 103/56 95 Room Air 07:30 (72) Intake and Output 09/11/18 09/11/18 09/12/18 1515:00 23:00 07:00 IntakeIntake Total 750 ml 240 ml OutputOutput Total 350 ml 100 ml 750 ml BalanceBalance 400 ml -100 ml -510 ml Medications Medications Current Medications Docusate Sodium (Colace) 100 mg BID PO ; Start 08/29/18 at 21:00; Status Hold Senna (Senokot) 1 tab HS PO ; Start 08/29/18 at 21:00; Status Hold Magnesium Hydroxide (Milk Of Mag) 30 ml BID PRN PO CONSTIPATION; Start 08/29/18 at 20:30 Lactulose (Enulose) 20 gm DAILY PRN PO CONSTIPATION; Start 08/29/18 at 20:30 Bisacodyl (Dulcolax Supp) 10 mg DAILY PRN [place] CONSTIPATION; Start 08/29/18 at 20:30 Acetaminophen (Tylenol Tab) 650 mg Q4H PRN PO PAIN; Start 08/29/18 at 20:30 Ondansetron HCl (Zofran Inj) 4 mg Q6H PRN IV NAUSEA AND/OR VOMITING; Start 08/29/18 at 22:00 Spironolactone (Aldactone) 25 mg DAILY PO Last administered on 09/12/18 08:38; Admin Dose 25 MG; Start 08/30/18 at 09:00 Zolpidem Tartrate (Ambien) 5 mg HS PRN PO INSOMNIA Last administered on at 20:59; Admin Dose 5 MG; Start 08/29/18 at 22:00 Carvedilol (Coreg) 12.5 mg BID PO Last administered on 09/11/18 22:21; Admin Dose 12.5 MG; Start 08/29/18 at 23:00 Digoxin (Digoxin) 0.25 mg DAILY@13 PO Last administered on 09/09/18 13:33; Admin Dose 0.25 MG; Start 08/30/18 at 13:00 Potassium Chloride (Klor-Con 20) 20 meq DAILY PO Last administered on 09/12/18 08:38; Admin Dose 20 MEQ; Start 08/30/18 at 09:00 Furosemide (Lasix) 20 mg BID DIURETICS PO Last administered on 09/11/18 17:34; Admin Dose 20 MG; Start 08/30/18 at 06:00 Atorvastatin Calcium (Lipitor) 80 mg HS PO Last administered on 09/11/18 20:53; Admin Dose 80 MG; Start 08/29/18 at 22:00 Morphine Sulfate (morphine) 6 mg Q4H PRN PO SEVERE PAIN LEVEL 7-10; Start 08/29/18 at 22:00 Acetaminophen/ Hydrocodone Bitart ([place] (5/325)) 1 tab Q6H PRN PO MODERATE PAIN LEVEL 4-6; Start 08/29/18 at 22:00 Dabigatran (PRADaxa) 150 mg BID PO Last administered on 09/12/18 08:39; Admin Dose 150 MG; Start 08/29/18 at 23:30 Levothyroxine Sodium (Synthroid) 25 mcg AC BREAKFAST PO Last administered on 09/12/18 06:27; Admin Dose 25 MCG; Start 08/30/18 at 07:00 Lisinopril (Zestril) 2.5 mg DAILY PO Last administered on 09/11/18 09:24; Admin Dose 2.5 MG; Start 08/30/18 at 09:00 Allopurinol (Zyloprim) 300 mg DAILY PO Last administered on 09/12/18 08:38; Admin Dose 300 MG; Start 08/30/18 at 09:00 RITA SUGGS NP Sep 12, 2018 13:27
--- NOTE | 2018-09-12 15:35 | NUR ---
SHELTER MONITOR NOTES: Pt DC'd to home w/ home health as ordered. DC documents including RX & instructions provided to the pt's . RN utilized terminal manager via [id number], spoke w/ Charles [id number], pt's verbalized understanding. RN put emphasis on safe medication administration, stroke & VTE health teaching. Hand outs for stroke & DVT also provided to the pt in Bengali. Pt brought DME FWW, stated that they dont want the bedside commode as it will not fit in their house. WC to be delivered to their house per , as shower chair is not covered by medicare. Urinal provided per request. All DC documents signed by pt's . Per pt's all belongings w/ them & nothing is missing. Pt's verbalized that they will only take the bus to go home. Staff was able to assist the pt to have a taxi voucher c/o nursing office. Pt left ARU in stable condition, not in any distress, via WC accompanied by volunteer & . No concern/issues upon DC.
--- NOTE | 2018-09-15 09:55 | NUR ---
[facility] PT Discharge Summary Date of Discharge: 09/12/18 Patient Name: MIGUEL CACERES MR#: [id number] Height: 5 ft 4 in Weight: 154 lbs 5.177 oz 70.000 kg Reason for Visit: STROKE Precautions: confused, visual/spatial deficits, dec safety awareness/problem solving/sequencing Date: 09/12/18 Time: 0956 User: NASIR MARIEE Patient's progress, Adm-->DC: Short-term Goals: 1. Bed Mobility with SBA 2. All transfers SBA 3. Gait training 150ft SBA with FWW Pt made excellent gains during his stay at [facility]. At the time of eval, pt was mod assist for bed mobility, mod assist for transfers, mod assist for gait 20ft using FWW. At the time of dc, pt was Ind for bed mobility, Mod Ind for sit<>stand, SUP for bed<>WC/chair, SUP for WC mobility 150ft, SUP for gait 350ft, SUP for stairs 15steps using B rails. Primary barrier is dec safety awareness and visual/spatial deficits. Caregiver training has been completed with spouse. Pt met all STG's. Recommended FWW, manual WC with swing away foot rests, BSC, home with HHPT and 24hr assistance. Pt dc'd home.
== END 2018-09-12 15:35 | disposition home health service (06) | DRG 56 ==
LOC: VRC 18:59
PROVIDERS: ADMIT Physical Medicine & Rehabilitation; ATTEND Internal Medicine
PROC: F07Z5ZZ Bed Mobility Treatment (ICD-10-PCS; principal; 2018-08-29)
PROC: F08Z2ZZ Grooming/Personal Hygiene Treatment (ICD-10-PCS; 2018-08-29)
PROC: F06Z6ZZ Communicative/Cognitive Integration Skills Treatment (ICD-10-PCS; 2018-08-29)
DX: I69.351 Hemiplegia and hemiparesis following cerebral infarction affecting right dominant side (principal); G93.41 Metabolic encephalopathy; N39.0 Urinary tract infection, site not specified; B96.20 Unspecified Escherichia coli [E. coli] as the cause of diseases classified elsewhere; E03.9 Hypothyroidism, unspecified; Z95.810 Presence of automatic (implantable) cardiac defibrillator; I11.0 Hypertensive heart disease with heart failure; I50.9 Heart failure, unspecified; I25.10 Atherosclerotic heart disease of native coronary artery without angina pectoris; I48.91 Unspecified atrial fibrillation; F06.31 Mood disorder due to known physiological condition with depressive features; F01.50 Vascular dementia, unspecified severity, without behavioral disturbance, psychotic disturbance, mood disturbance, and anxiety
CPT/HCPCS: 80053; 80162; 80200; 81001; 83735; 84439; 84443; 85025; 87045; 87075; 87081; 87086; 92507; 92523; 97110; 97112; 97116; 97163; 97167; 97530; 97535; 97542; J3260

== ENCOUNTER 2018-12-05 17:38 | Emergency (ER) | payer MEDICARE, OTHER ==
[~2018-12-05] VITALS: Ht 170.2 cm; Wt 78.0 kg
[2018-12-05 17:48] VITALS: Ht 170.2 cm; Wt 78.0 kg
--- NOTE | 2018-12-05 18:03 | ERD ---
ER Documentation Chief Complaint Chief Complaint HPI 83-year-old male presenting with complaints of cough for over 1 month. Since hi s cough was worsening, he decided to present to the ER. He endorses chills but no fevers. No nausea, vomiting, diarrhea. No associated chest pain. Mild shortness of breath. ROS All systems reviewed and are negative except as per history of present illness. Medications Home Meds Active Scripts Azithromycin* (Zithromax*) 250 Mg Tablet, 250 MG PO DAILY for 4 Days, TAB Prov:GLORY FARFAN MD 12/05/18 Atorvastatin* (Atorvastatin*) 80 Mg Tablet, 80 MG PO HS, #60 TAB Prov:ROSA MAN 08/29/18 Spironolactone* (Aldactone*) 25 Mg Tablet, 25 MG PO DAILY, #30 TAB Prov:SUGGSLINDAA V. SALES AND MERCHANDISING ASSOCIATE 10/24/17 Furosemide* (Furosemide*) 40 Mg Tablet, 20 MG PO BID, #60 TAB Prov:SUGGSEFERITA V. SALES AND MERCHANDISING ASSOCIATE 10/24/17 Reported Medications Potassium Chloride* (K-Dur*) 20 Meq Tab.prt.sr, 20 MEQ PO DAILY, TAB.SA 10/21/17 Lisinopril* (Lisinopril*) 2.5 Mg Tablet, 2.5 MG PO DAILY, #30 TAB 10/21/17 Levothyroxine Sodium* (Levoxyl*) 25 Mcg Tablet, 25 MCG PO BEFORE BREAKFAST, #30 TAB 10/21/17 Ferrous Sulfate* (Ferrous Sulfate*) 325 Mg Tabec, 325 MG PO BID, TAB 10/21/17 Digoxin* (Lanoxin*) 0.25 Mg Tablet, 0.25 MG PO DAILY, TAB 10/21/17 Dabigatran Etexilate Mesylate* (Pradaxa*) 150 Mg Capsule, 150 MG PO BID, CAP 10/21/17 Carvedilol* (Carvedilol*) 12.5 Mg Tablet, 12.5 MG PO BID, #60 TAB 10/21/17 Allopurinol* (Allopurinol*) 300 Mg Tablet, 300 MG PO DAILY, TAB 10/21/17 Allergies Allergies: Coded Allergies: No Known Allergy (Unverified , 10/21/17) PMhx/Soc History of Surgery: Yes (Pacemaker) Anesthesia Reaction: No Hx Neurological Disorder: Yes (CVA, acute metabolic encephalopathy) Hx Respiratory Disorders: No Hx Cardiac Disorders: Yes (CHF, HTN) Hx Psychiatric Problems: No Hx Miscellaneous Medical Probl: No Hx Alcohol Use: No Hx Substance Use: No Hx Tobacco Use: No (former smoker quit 10 years ago) FmHx Family History: No diabetes Physical Exam Vitals Vital Signs Date Temp Pulse Resp B/P (MAP) Pulse Ox O2 O2 Flow FiO2 Time Delivery Rate 12/05/18 97.6 75 20 167/89 97 Room Air 20:00 (115) 12/05/18 99.2 65 19 148/82 99 Room Air 18:45 (104) 12/05/18 Nasal 2 18:02 Cannula 12/05/18 98.2 70 18 172/100 99 17:48 (124) Physical Exam Const: No acute distress Head: Atraumatic Eyes: Normal Conjunctiva ENT: Normal External Ears, Nose and Mouth. Hoarseness of voice. Posterior oropharynx normal appearing without any swelling or uvula deviation. No exudates. Neck: Full range of motion. No meningismus. No JVD Resp: Clear to auscultation bilaterally, diminished at the bases. No wheezing, rales, or rhonchi Cardio: Pacemaker left chest. Irregularly irregular rhythm, normal rate. No murmurs. 2+ distal pulses in all 4 extremities Abd: Soft, non tender, non distended. Normal bowel sounds Skin: No petechiae or rashes Back: No midline or flank tenderness Ext: No cyanosis, or edema Neur: Awake and alert Psych: Normal Mood and Affect Result Diagram: 12/05/18 1756 12/05/18 1756 Results 24 hrs Laboratory Tests Test 12/05/18 17:56 White Blood Count 6.2 10^3/ul Red Blood Count 3.97 10^6/ul Hemoglobin 12.7 g/dl Hematocrit 38.0 % Mean Corpuscular Volume 95.7 fl Mean Corpuscular Hemoglobin 32.0 pg Mean Corpuscular Hemoglobin Concent 33.4 g/dl Red Cell Distribution Width 14.0 % Platelet Count 127 10^3/UL Mean Platelet Volume 11.2 fl Immature Granulocytes % 0.300 % Neutrophils % 62.6 % Lymphocytes % 22.0 % Monocytes % 10.2 % Eosinophils % 4.4 % Basophils % 0.5 % Nucleated Red Blood Cells % 0.0 /100WBC Immature Granulocytes # 0.020 10^3/ul Neutrophils # 3.9 10^3/ul Lymphocytes # 1.4 10^3/ul Monocytes # 0.6 10^3/ul Eosinophils # 0.3 10^3/ul Basophils # 0.0 10^3/ul Nucleated Red Blood Cells # 0.0 10^3/ul Sodium Level 139 mmol/L Potassium Level 4.5 mmol/L Chloride Level 104 mmol/L Carbon Dioxide Level 27 mmol/L Anion Gap 8 Blood Urea Nitrogen 12 mg/dl Creatinine 0.81 mg/dl Est Glomerular Filtrat Rate mL/min mL/min Glucose Level 101 mg/dl Lactic Acid Level 1.1 mmol/L Calcium Level 9.4 mg/dl Troponin I 0.020 ng/ml B-Type Natriuretic Peptide 3490 PG/ML Current Medications Medications Dose Sig/Loraine Start Time Status Last (Trade) Ordered Route PRN Stop Time Admin Dose Reason Admin 1,000 mg ONCE STAT 12/05/18 DC 12/05/18 Acetaminophen PO 19:05 19:21 (Tylenol 12/05/18 19:06 Tab) 500 mg ONCE ONCE 12/05/18 DC Azithromycin PO 20:00 (Zithromax) 12/05/18 20:01 Procedures/MDM EMERGENT LABS AND DIAGNOSTIC STUDIES: Lab Results above were reviewed and interpreted by me. CBC: Mild thrombocytopenia. No significant anemia or evidence of infection BMP: No evidence of electrolyte abnormality, renal failure, hypoglycemia Troponin within normal limits, not indicative of cardiac ischemia Lactate within normal limits without evidence of sepsis or tissue hypoperfusion 12-lead EKG was interpreted by Skyler Farfan MD: Atrial fibrillation with premature aberrantly conducted complexes Right bundle branch block, left anterior fascicular bloc No acute ST or T wave changes suggestive of acute ischemia or STEMI. Radiology Results as interpreted by Radiology below were reviewed by Nomi Farfan MD: Chest x-ray: MPRESSION: Cardiomegaly with aortic atherosclerosis. Right basilar atelectasis, edema or pneumonia. Initial Nursing notes reviewed. Previous Medical Records requested via the Electronic Health Record. EMERGENCY DEPARTMENT COURSE / MEDICAL DECISION MAKING: Given the patient's worsening cough, I do suspect possible pneumonia versus CHF exacerbation. Lower suspicion for ACS. Initial vitals are unremarkable. No evidence of sepsis. X-ray did show evidence of possible pneumonia. This does clinically correlate with the patient's clinical symptoms. Recommended outpatient azithromycin. Return precautions discussed. Follow-up with PCP recommended in 1 week. Patient's blood pressure was elevated (>120/80) but appears stable without evidence of hypertensive emergency or urgency. The patient was counseled about the risks of hypertension and urged to pursue outpatient monitoring and therapy within a week with their primary care physician. Departure Diagnosis: Primary Impression: Community acquired pneumonia Laterality: right Lung location: lower lobe of lung Qualified Codes: J18.1 - Lobar pneumonia, unspecified organism Condition: Stable GLORY FARFAN MD Dec 05, 2018 18:03
[2018-12-05] MEDS ORDERED: ACETAMINOPHEN 500 MG TAB PO STA (19:05)
[2018-12-05] MEDS ORDERED: AZIT250T PO (19:41)
[2018-12-05 20:00] VITALS: BP 167/89; PULSE 75; RESP 20
[2018-12-05] MEDS ORDERED: AZITHROMYCIN 500 MG TAB PO ONE (20:00)
== END 2018-12-05 20:46 | disposition home or self-care (01) ==
LOC: E/R 17:38
DX: J18.1 Lobar pneumonia, unspecified organism (principal); I11.0 Hypertensive heart disease with heart failure; I50.9 Heart failure, unspecified; Z86.73 Personal history of transient ischemic attack (TIA), and cerebral infarction without residual deficits; Z87.891 Personal history of nicotine dependence; Z95.0 Presence of cardiac pacemaker
CPT/HCPCS: 36415; 71045; 80048; 83605; 83880; 84484; 85025; 93005